=== PATIENT | male | born 1965 | race Caucasian/White ===

== ENCOUNTER 2019-08-01 08:38 | Outpatient (CLI) | payer OTHER, SELFPAY ==
--- NOTE | 2019-08-01 08:51 | ECHO_ITS ---
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 Summary 1. Left ventricular chamber dimension is severely enlarged. 2. Basal inferior/posterior/lateral ribeiro are mildly hypokinetic. Remaining wall segments are severely hypokinetic to akinetic. 3. Left ventricular systolic function is severely reduced, estimated at 25-30%. 4. The left ventricular diastolic function is normal. 5. Tissue doppler is not performed. 6. Left atrial chamber dimension is moderately enlarged. 7. There is mild aortic valve sclerosis. 8. There is mild mitral valve regurgitation. 9. Mild pulmonary hypertension, estimated pulmonary arterial systolic pressure is 44 mmHg. 10. Pleural effusion noted. 11. There is trivial pericardial effusion. Left Ventricle Tissue doppler is not performed. Basal inferior/posterior/lateral ribeiro are mildly hypokinetic. Remaining wall segments are severely hypokinetic to akinetic. Left ventricular chamber dimension is severely enlarged. Left ventricular systolic function is severely reduced, estimated at 25-30%. The left ventricular diastolic function is normal. Right Ventricle Right ventricular chamber dimension is normal. Right ventricular systolic function is normal. Left Atria Left atrial chamber dimension is moderately enlarged. Right Atria Right atrial chamber dimension is normal. Aortic Valve The aortic valve is trileaflet. There is mild aortic valve sclerosis. There is no aortic valve stenosis. There is no aortic valve regurgitation. Pulmonic Valve There is no pulmonic regurgitation. Mitral Valve There is no mitral valve stenosis. There is mild mitral valve regurgitation. Tricuspid Valve There is no tricuspid valve regurgitation. Mild pulmonary hypertension, estimated pulmonary arterial systolic pressure is 44 mmHg. Pericardium/Pleural Pleural effusion noted. There is trivial pericardial effusion. Inferior Vena Cava Normal inferior vena cava with >50% collapse upon inspiration consistent with normal right atrial pressure, 5 mmHg. Aorta The aortic root size at the sinus of Valsalva is normal. Left Ventricular Outflow Tract Name Value Normal LVOT 2D LVOT Diameter 2.1 cm LVOT Doppler LVOT Peak Gradient 2 mmHg LVOT Mean Gradient 1 mmHg LVOT VTI 13 cm LVOT VTI/AV VTI Ratio 0.6 LVOT Stroke Volume 46 ml LVOT CO 4.1 l/min
== END 2019-08-01 08:39 | disposition home or self-care (01) ==
PROVIDERS: PCP Internal Medicine; Visit Provider Physician Assistant
DX: R06.02 Shortness of breath (principal); R60.0 Localized edema; R79.89 Other specified abnormal findings of blood chemistry; J90 Pleural effusion, not elsewhere classified; I08.3 Combined rheumatic disorders of mitral, aortic and tricuspid valves
CPT/HCPCS: 93306

== ENCOUNTER 2019-08-15 05:58 | Day surgery (SDC) | payer OTHER, SELFPAY ==
[2019-08-14 16:46] VITALS: BMI 28.3
[2019-08-15] VITALS (15 sets, daily range): BP systolic 124–152; BP diastolic 83–93; PULSE 82–93; RESP 13–22; TEMP 36.2–36.3; O2SAT 94–100
[2019-08-15 07:35] LABS: Basophils Absolute Auto 0.1 K/mm3 (0.0-0.1); Basophils Percent Auto 0.7 % (0.2-1.2); Eosinophils Absolute Auto 0.1 K/mm3 (0-0.3); Eosinophils Percent Auto 1.4 % (0-4.4); Hematocrit 41.3 % (42.0-52.0); Immature Granulocyte Absolute 0.03 K/mm3 (0.00-0.031); Immature Granulocyte Percent A 0.4 % (0-0.5); Lymphocytes Absolute Auto 1.71 K/mm3 (0.9-3.2); Lymphocytes Percent Auto 23.7 % (18.3-44.2); Mean Corpuscular HGB Conc 31.5 g/dl (32-36); Mean Corpuscular Hemoglobin 27.9 pg (26-34); Mean Corpuscular Volume 88.6 fl (80-100); Mean Platelet Volume 10.6 fl (7.4-10.4); Monocytes Absolute Auto 0.5 K/mm3 (0.1-0.6); Monocytes Percent Auto 7.5 % (2.6-8.5); Neutrophils Absolute Auto 4.8 K/mm3 (1.3-6.7); Neutrophils Percent Auto 66.3 % (45.5-73.1); Platelet Count Result 265 k/mm3 (150-375); Red Blood Count 4.66 M/mm3 (4.6-6.20); Red Cell Distribution Width 12.3 % (11.5-14.5); White Blood Count 7.2 K/mm3 (4.5-10.0)
[2019-08-15 07:44] LABS: Blood Urea Nitrogen 44 mg/dL (9-20); Calcium 9.2 mg/dL (8.4-10.2); Carbon Dioxide 25 mmol/L (22-30); Chloride 107 mmol/L (98-107); Estimated CRCL calculation 65 ml/min; Estimated Glomerular Filt Rate > 60; Glucose 267 mg/dL (75-110); Potassium 5.4 mmol/L (3.4-5.0); Sodium 136 mmol/L (137-145)
--- NOTE | 2019-08-15 08:30 | WPDMODSED ---
Moderate Sedation Note-Pt Data Patient Data Allergies Allergy/AdvReac Type Severity Reaction Status Date / Time Cantaloupe Allergy Unknown ITCHING, Uncoded 07/25/19 09:45 SWOLLEN LIPS Home Medications Medication Instructions Recorded Confirmed Type aspirin 325 mg tablet 325 mg PO DAILY 03/04/19 08/15/19 History dextroamphetamine-amphetamine 20 30 mg PO DAILY tablet 03/04/19 08/15/19 History mg tablet ibuprofen 200 mg capsule 600 mg PO Q6H PRN cap 03/04/19 08/15/19 History insulin lispro 100 unit/mL 1 sliding scale dose SUB-Q 03/04/19 08/15/19 History subcutaneous solution USEASDIRECTD PRN lisinopril 10 mg tablet 10 mg PO DAILY 03/04/19 08/15/19 History mecobalamin (vitamin B12) 5,000 5,000 mcg PO DAILY 03/04/19 08/15/19 History mcg disintegrating tablet tamsulosin 0.4 mg capsule 0.4 mg PO DAILY 03/04/19 08/15/19 History cholecalciferol (vitamin D3) 1,250 50,000 unit PO WEEKLY #13 cap 05/22/19 08/15/19 Rx mcg (50,000 unit) capsule insulin degludec 100 unit/mL (3 30 unit SUB-Q DAILY ml 07/25/19 08/15/19 History mL) subcutaneous pen spironolactone 50 mg tablet 50 mg PO DAILY #30 tablet 07/25/19 08/15/19 Rx albuterol sulfate 90 mcg/actuation 2 puff INHALATION Q4-6H PRN #18 gm 08/04/19 08/15/19 Rx aerosol inhaler acetaminophen 500 mg PO QID PRN 08/15/19 08/15/19 History carvedilol [Coreg] 3.125 mg PO BID 08/15/19 08/15/19 History hydroxyzine pamoate 50 mg PO BID PRN 08/15/19 08/15/19 History ibuprofen 200 mg PO Q6H PRN 08/15/19 08/15/19 History insulin degludec [Tresiba 15 unit SUBCUT DAILY 08/15/19 08/15/19 History FlexTouch U-100] trazodone 50 mg PO .hs 08/15/19 08/15/19 History Current Medications: Active Medications Sodium Chloride (Normal Saline Iv) 500 mls @ 100 mls/hr IV CONT .Q5H [facility] Sedation/Anesthesia: No previous sedation/anesthesia problems (including family history). [facility] Social History Social History Smoking status: Heavy tobacco smoker Second hand tobacco smoke exposure: No Alcohol intake: never Gender identity (if verbalized by the patient): Male Mod Sed Physical Exam Physical Exam Pre Procedural Exam: Normal: Airway Hours since solid foods: 10 Hours since liquid intake: 10 Internal Medicine - PN: Obj Da Vital Signs Vital Signs: Vital Signs - 24 hr 08/15/19 07:22 Temperature 36.3 C L Pulse Rate 89 Respiratory Rate 16 Blood Pressure 143/90 H Pulse Oximetry 94 Meds/Results Medications: Active Medications Generic Name Dose Route Start Last Admin Trade Name Freq PRN Reason Stop Dose Admin Sodium Chloride 500 mls @ 100 mls/hr 08/15/19 06:10 Normal Saline Iv IV CONT .Q5H [facility] Labs CBC & Chem 7: 08/15/19 07:26 08/15/19 07:26 Labs: Laboratory Results - last 24 hr 08/15/19 08/15/19 07:26 07:26 WBC 7.2 RBC 4.66 Hgb 13.0 L Hct 41.3 L MCV 88.6 MCH 27.9 MCHC 31.5 L RDW 12.3 Plt Count 265 MPV 10.6 H Immature Gran % (Auto) 0.4 Neut % (Auto) 66.3 Lymph % (Auto) 23.7 Borden % (Auto) 7.5 Eos % (Auto) 1.4 Baso % (Auto) 0.7 Lymph # (Auto) 1.71 Borden # (Auto) 0.5 Eos # (Auto) 0.1 Baso # (Auto) 0.1 Abs Immat Gran (auto) 0.03 Absolute Neuts (auto) 4.8 Absolute Nucleated RBC 0.0 Nucleated RBC % 0.0 Sodium 136 L Potassium 5.4 H Chloride 107 Carbon Dioxide 25 BUN 44 H Creatinine 1.10 Estim Creat Clear Calc 65 Estimated GFR > 60 Glucose 267 H Calcium 9.2 ASA Classification/Sedation ASA Classification/Sedation Risks: Risks, benefits and alternatives explained and patient/family accepted plan for sedation. Patient re-evaluated immediately prior to sedation.
--- NOTE | 2019-08-15 08:31 | WPDHPUPDATE1 ---
History and Physical Update Update Date/Time: 08/15/19 08:31 History and Physical has been reviewed, including an updated exam of the patient. There are NO changes in the patient's condition. Risks, benefits, and alternatives have been discussed and questions answered. Patient agrees to proceed with procedure.
--- NOTE | 2019-08-15 09:44 | WPDCARDPROC ---
Cardiac Cath Procedure Note Date of procedure:: 08/15/19 Performing physician:: Jony Barrios MD Procedure Procedure note:: LEFT HEART CATHETERIZATION AND CORONARY ANGIOGRAM REPORT DATE OF PROCEDURE: 08/15/2019 INDICATION FOR PROCEDURE: congestive heart failure with reduced ejection fraction BRIEF CLINICAL HISTORY: 53-year-old male with CHF with reduced ejection fraction, hypertension, diabetes mellitus on insulin. Patient was referred by Dr. Zazueta for coronary angiogram in the setting of CHF with reduced ejection fraction. Patient had echocardiogram done on 08/01/2019 which reported severe LV systolic dysfunction, ejection fraction 25-30% with segmental wall motion abnormality. Benefits and risks of the procedure were discussed with the patient informed consent was doing prior to the procedure. PROCEDURES PERFORMED: 1. Left heart catheterization- Selective left and right coronary angiogram; left ventriculogram and hemodynamic assessment 2. Moderate sedation-CPT code 24614 MODERATE SEDATION: Midazolam 1 mg; fentanyl 25 mcg; Start time 0913 , Stop time 0930 ; Total [id number]-[id number] time 17 minutes; Archana Kennedy RN was trained observer for moderate sedation. ACCESS SITE: Right common femoral artery PROCEDURE NOTE: After obtaining informed consent, patient was brought to catheterization lab and prepped and draped in a usual sterile manner. After local anesthesia with lidocaine, right common femoral artery access was taken with micropuncture needle followed by insertion of a 6 Cuban sheath. Selective left and right coronary angiogram was performed using 5 Cuban JL4 and JR4 catheters respectively. Orthogonal views were taken. Next, a 5 Cuban pigtail catheter was advanced in the LV cavity and was flushed with normal saline. LV pressure measurement was performed. After this, left ventriculogram was performed. The catheter was flushed again, and gradient across the aortic valve was measured on the pullback of the catheter. . The 5 Cuban sheath was secured in place which we taken out in the micro lab analyst holding area. Manual pressure will be used for local hemostasis. Patient tolerated procedure well without any immediate procedure related complications. FINDINGS: LEFT MAIN CORONARY: The left main coronary artery is a medium caliber vessel with minimal narrowing in the distal most segment before vessel trifurcates into LAD, ramus intermedius and left circumflex branches. LEFT ANTERIOR DESCENDING ARTERY: The LAD is a medium caliber vessel, tapers distally and reaches the LV apex. There is about 70% stenosis at the ostium of the LAD. Minor irregularities are seen in the mid segment with some tortuosity. B major diagonal branch is a medium-sized vessel without significant focal stenosis. RAMUS INTERMEDIUS: The ramus intermedius is a medium to large size vessel, minor irregularities, no significant focal stenosis. LEFT CIRCUMFLEX ARTERY: The left circumflex artery is a small to medium-sized vessel, continues in the AV groove with Minor irregularities. RIGHT CORONARY ARTERY: The RCA is a medium-sized vessel with diffuse narrowing in the mid segment; up to 70% in the mid segment. The vessel gives rise to medium-sized PDA branch and small size PLV branch. There is slightly sluggish blood flow in the RCA. LEFT VENTRICULOGRAM: severe LV systolic dysfunction with LVEF about 25-30%; segmental wall motion abnormality with severe hypokinesis of anterior wall, apex and apical inferior segments. Basal segments are relatively preserved. LVEDP is elevated at 23 mmHg. HEMODYNAMIC ASSESSMENT: Opening pressure 115/72 mmHg , closing pressure 100/60 mmHg , LVEDP 23 mmHg , no significant gradient across aortic valve on the pullback of pigtail catheter. CONCLUSIONS: 1. Multivessel CAD- About 70% stenosis at the ostium of LAD; about 70% stenosis in the mid RCA. 2. severe LV systolic dysfunction with segmental wall motion abnormality -sever
--- NOTE | 2019-08-15 16:14 | SUR.PHASEII ---
Patient ambulated to bathroom and then chair with no signs of bleeding or hematoma, will continue to monitor.
[2019-08-15] MEDS: ACETAMINOPHEN 500 MG TABLET 1000 MG PO (16:52)
== END 2019-08-15 17:02 | disposition home or self-care (01) ==
PROVIDERS: PCP Internal Medicine; Visit Provider Internal Medicine Cardiovascular Disease
PROC: 4A023N7 Measurement of Cardiac Sampling and Pressure, Left Heart, Percutaneous Approach (ICD-10-PCS; CPT 93452; principal; 2019-08-15 08:30)
DX: I25.10 Atherosclerotic heart disease of native coronary artery without angina pectoris (principal); I11.0 Hypertensive heart disease with heart failure; I50.22 Chronic systolic (congestive) heart failure; I42.9 Cardiomyopathy, unspecified; E11.9 Type 2 diabetes mellitus without complications; E78.5 Hyperlipidemia, unspecified; Z86.73 Personal history of transient ischemic attack (TIA), and cerebral infarction without residual deficits; F17.210 Nicotine dependence, cigarettes, uncomplicated; Z79.4 Long term (current) use of insulin; Z79.82 Long term (current) use of aspirin
CPT/HCPCS: 36415; 80048; 85025; 93458; A9270; C1887; C1894; J1644; J2250; J3010; J7040

== ENCOUNTER 2020-06-17 14:18 | Outpatient (CLI) | payer MEDICARE, SELFPAY ==
--- NOTE | ~2020-06-17 | US_ITS ---
EXAMINATION: US art doppler w press LE BI DATE: 06/17/2020 15:03 INDICATION: Peripheral arterial occlusive disease with claudication and prior right great toe amputat ion TECHNIQUE: Segmental pressures and plethysmographic and Doppler waveforms of the brachial and lower e xtremity arteries were obtained. COMPARISON: 12/11/2016 FINDINGS: Right and left brachial artery pressures of 107 mm Hg and 102 mm Hg, respectively, are concordant (no rmal difference <= 30 mmHg). The right ankle-brachial index (JELLY) is 1.22 (normal >= 0.9-1). The right great toe-brachial index (T BI) is 0.26 (normal >= 0.6-0.8). Arterial waveforms are biphasic with brisk systolic upstrokes at bot h the right posterior tibial and dorsalis pedis arteries. The left JELLY is 1.18. The left TBI is 1.21. Arterial waveforms are biphasic with brisk systolic upstr okes at both the left posterior tibial and dorsalis pedis arteries. IMPRESSION: 1. Persistent findings of arterial occlusive disease below the right ankle with normal right JELLY and moderate to severely decreased right TBI. 2. No significant arterial occlusive disease to the left lower limb with normal left JELLY and TBI. Reviewed, dictated and finalized at location B. 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
== END 2020-06-17 14:19 | disposition home or self-care (01) ==
LOC: ANHIMG 14:26
PROVIDERS: PCP Internal Medicine; Visit Provider Internal Medicine Cardiovascular Disease
DX: I25.10 Atherosclerotic heart disease of native coronary artery without angina pectoris (principal); I73.9 Peripheral vascular disease, unspecified
CPT/HCPCS: 93923

== ENCOUNTER 2020-06-20 10:13 | Outpatient (CLI) | payer MEDICARE, SELFPAY | END 2020-06-20 10:14 | disposition home or self-care (01) | LOC: ANHCOVIDVC 10:13 | PROVIDERS: PCP Internal Medicine | DX: Z23 Encounter for immunization (principal) | CPT/HCPCS: 0001A; 91300 ==

== ENCOUNTER 2020-07-11 09:43 | Outpatient (CLI) | payer MEDICARE, SELFPAY | END 2020-07-11 09:44 | disposition home or self-care (01) | LOC: ANHCOVIDVC 09:44 | PROVIDERS: PCP Internal Medicine | DX: Z23 Encounter for immunization (principal) | CPT/HCPCS: 0002A; 91300 ==

== ENCOUNTER 2020-09-06 09:04 | Outpatient (CLI) | payer MEDICARE, SELFPAY ==
--- NOTE | ~2020-09-06 | US_ITS ---
EXAMINATION: US renal BI EXAM DATE: 09/06/2020 10:16 INDICATION: CKD, HTN hypertension . TECHNIQUE: Multiple grayscale and Doppler images of the kidneys were obtained (by a technologist who performed the scan) and subsequently reviewed. Comparison is made to prior examination from 11/30/2017 . FINDINGS: Right kidney: There is normal contour and mildly hyperechoic echogenicity. It measures 10.7 x 5.6 x 5.0 centimeters. There are no focal renal lesions identified. There is no hydronephrosis. Left kidney: There is normal contour and mildly hyperechoic echogenicity. It measures 12.5 x 5.2 x 4 .7 centimeters. There are no focal renal lesions identified. There is no hydronephrosis. Mild diffuse bladder wall thickening and trabecular wall, could indicate chronic cystitis. IMPRESSION: 1. Mildly hyperechoic renal parenchyma, medical renal disease. 2. Bladder wall thickening and trabeculation, probably chronic cystitis. Reviewed, dictated and finalized at location A.
--- NOTE | ~2020-09-06 | US_ITS ---
EXAMINATION: US retroperitoneal duplex ltd EXAM DATE: 09/06/2020 10:16 INDICATION: Hypertension. TECHNIQUE: Multiple grayscale and Doppler images of the kidneys and renal arteries were obtained. T here is no prior study for comparison. FINDINGS: The aorta peak systolic velocity is 105 cm/s. Renal arteries interrogated in several segments from origin to hilum. RIGHT RENAL ARTERY Proximal segment: 91 cm/s. Mid segment: 94 cm/s. Distal segment: 103 cm/s. LEFT RENAL ARTERY Proximal segment: 50 cm/s. Mid segment: 88 cm/s. Distal segment: 56 cm/s. IMPRESSION: 1. Renal artery Doppler velocities within normal limits. Reviewed, dictated and finalized at location A.
== END 2020-09-06 09:05 | disposition home or self-care (01) ==
PROVIDERS: PCP Internal Medicine; Visit Provider Internal Medicine Nephrology
DX: N18.31 Chronic kidney disease, stage 3a (principal); I10 Essential (primary) hypertension; R93.41 Abnormal radiologic findings on diagnostic imaging of renal pelvis, ureter, or bladder
CPT/HCPCS: 76775; 93976

== ENCOUNTER 2021-08-19 09:31 | Observation (INO) | payer MEDICARE, SELFPAY ==
[2021-08-19] VITALS (14 sets, daily range): BP systolic 114–174; BP diastolic 70–95; PULSE 77–98; RESP 16–20; TEMP 35.8–38.5; O2SAT 88–100; BMI 29.2
--- NOTE | ~2021-08-19 | CT_ITS ---
EXAMINATION: CT pelvis wo con DATE: 08/20/2021 15:13 INDICATION: Sacral fracture TECHNIQUE: High resolution computed tomography (CT) of the pelvis was performed without intravenous c ontrast. Additional sagittal and coronal reconstructions were performed. Automated exposure control a nd iterative reconstruction technique were employed. The dose-length product was 457.09 mGy-cm. COMPARISON: None FINDINGS: Bone alignment is normal. Old healed fracture at the right inferior pubic ramus. No acute fracture. S mall amount of ascites in the pelvis. Bladder is normal. There is mild colonic diverticulosis with a sigmoid predominance. There is no adjacent inflammatory change to suggest diverticulitis. The append ix and visualized portions of the small bowels are unremarkable. Extensive scattered peripheral vascu lar calcifications suggesting diabetes. No pathologically enlarged bilateral pelvic or inguinal lymph adenopathy. IMPRESSION: 1. No acute osseous abnormality. 2. Small amount of nonspecific ascites in the pelvis. Reviewed, dictated and finalized at location A.
--- NOTE | ~2021-08-19 | CT_ITS ---
EXAMINATION: CT brain wo con DATE: 08/19/2021 19:15 INDICATION: weakness TECHNIQUE: Computed tomography (CT) of the head was performed without intravenous contrast. The mA wa s adjusted according to patient size. Iterative reconstruction technique was employed. The dose-lengt h product was 605.33 mGy-cm. COMPARISON: 03/19/12 FINDINGS: No acute intracranial hemorrhage or extra-axial fluid collection. No hydrocephalus, mass, or herniation. No acute ischemic infarct. Unremarkable dural venous sinus attenuation. No acute osseous abnormality. The aerated spaces are clear. Mild atrophy and chronic white matter change. Atherosclerotic intracranial vascular calcifications. B ilateral lens replacements. IMPRESSION: No acute intracranial process. Reviewed, dictated and finalized at location K.
--- NOTE | ~2021-08-19 | XR_ITS ---
EXAMINATION: XR chest 2V DATE: 08/19/2021 10:24 INDICATION: Weakness post recent fall TECHNIQUE: frontal and lateral views of the chest were obtained. COMPARISON: Chest radiograph dated 07/16/2015 FINDINGS: Large-bore dual-lumen right internal jugular central venous catheter with distal tip at the high righ t atrium. Blunting at the bilateral posterior sulci and costophrenic angles consistent with small heath ateral pleural effusions with associated compressive atelectasis. No other airspace opacities, pulmon nasim edema or pneumothorax. Mild cardiomegaly. Mild thoracic spondylosis. Chronic Schmorl's node along the superior endplate of L1. IMPRESSION: 1. Small bilateral pleural effusions. 2. Mild cardiomegaly. Reviewed, dictated and finalized at location A.
--- NOTE | ~2021-08-19 | XR_ITS ---
EXAMINATION: XR lumbar spine 2-3V DATE: 08/19/2021 10:24 INDICATION: Weakness, recent fall, back pain TECHNIQUE: Anteroposterior and lateral views of the lumbar spine, and cone-down lateral view of the l umbosacral junction were obtained. COMPARISON: 06/30/2014 FINDINGS: There is and age-indeterminate displaced and slightly overriding transverse fracture of the sacrum and approximately S3-4. Bone alignment is normal in the lumbar spine. There is no fracture th e lumbar spine. The vertebral body heights are maintained. There is mild loss of intervertebral disc space height at L5-S1. Small degenerative osteophytes project from the anterior endplates of multiple vertebral bodies. Calcified atherosclerosis is noted. IMPRESSION: 1. Age-indeterminate displaced and slightly overriding transverse fracture of the sacrum. 2. Mild lumbar spondylosis. Reviewed, dictated and finalized at location A. IMPRESSION: 1. Age-indeterminate displaced and slightly overriding transverse fracture of t he sacrum. 2. Mild lumbar spondylosis.
--- NOTE | 2021-08-19 09:58 | ECG_ITS ---
Measurements Intervals Carney Rate: 79 P: 88 [place]: 188 QRS: -53 QRSD: 119 T: 85 QT: 412 QTc: 473 Interpretive Statements SINUS RHYTHM LEFT AXIS DEVIATION POSSIBLE LEFT ATRIAL ENLARGEMENT INFERIOR INFARCT, AGE INDETERMINATE BORDERLINE ST-T WAVE ABNORMALITY- HIGH LATERAL LEADS ABNORMAL ECG Electronically Signed On 08-19-2021 10:20:16 CDT by Reji Poon D.O.
--- NOTE | 2021-08-19 10:01 | ED.BACK ---
HPI - Back Pain/Injury General Chief Complaint: Weakness Stated Complaint: back problems Time Seen by Provider: 08/19/21 09:45 History of Present Illness HPI Narrative: 55-year-old male with end-stage renal disease presents the emergency room complaining of lower back pain x1 week. Patient states that he slipped and fell landing on his tailbone. Patient also complains of increased generalized weakness over the past week, causing him to fall multiple times. Patient is a Wednesday dialysis, and has not dialyzed since Wednesday. Patient denies chest pain, shortness of breath, Related Data Home Medications Medication Instructions Recorded Confirmed insulin lispro 100 unit/mL 1 sliding scale dose SUB-Q 03/04/19 10/16/20 subcutaneous solution USEASDIRECTD PRN insulin degludec 100 unit/mL (3 38 unit SUB-Q DAILY ml 09/13/20 10/16/20 mL) subcutaneous pen cholecalciferol (vitamin D3) 125 mcg PO DAILY 08/19/21 [Vitamin D3] dextroamphetamine-amphetamine 20 mg PO BID 08/19/21 furosemide [Lasix] 80 mg PO TID 08/19/21 levothyroxine 50 mcg PO DAILY 08/19/21 metoprolol succinate 25 mg PO DAILY 08/19/21 Allergies Allergy/AdvReac Type Severity Reaction Status Date / Time Cantaloupe Allergy Unknown ITCHING, Uncoded 08/19/21 10:09 SWOLLEN LIPS Review of Systems Review of Systems: CONSTITUTIONAL: Denies fever, chills, or sweats. EYES: Denies visual changes, redness, or discharge. ENT: Denies rhinorrhea, congestion, sore throat, or otalgia. CARDIOVASCULAR: Denies chest pain, palpitations, or edema. RESPIRATORY: Denies cough or dyspnea. GASTROINTESTINAL: Denies abdominal pain, nausea, vomiting, or diarrhea. GENITOURINARY: Denies dysuria or hematuria. SKIN: Denies rash or itching. MUSCULOSKELETAL: Reports lower back pain NEUROLOGIC: Reports generalized weakness PSYCHIATRIC: Denies anxiety or depression. [facility] Social History Social History Smoking packs per day: 1 Smoking cigarettes per day: 20.0 Years smoked: 40 Smoking pack-years: 40.00 Smoking status: Current every day smoker Tobacco type: cigarettes Second hand tobacco smoke exposure: No Alcohol intake: never Gender identity (if verbalized by the patient): Male Exam Narrative: GENERAL: Ill-appearing. HEAD: Normocephalic, atraumatic. EYES: PERRLA and EOMI. NECK: Supple. No adenopathy or masses. No carotid bruits or JVD CHEST: Clear to auscultation. No respiratory distress. No wheezes rales or rhonchi HEART: Regular rate and rhythm. No murmur heard. Normal peripheral pulses. ABDOMEN: Soft, nontender, nondistended, normal active bowel sounds. EXTREMITIES: Normal range of motion. Lower extremity edema BACK: Tenderness midline to sacrum, no step-offs SKIN: Warm, dry, no rash. Indurated, erythematous mass to right gluteal area NEURO: No focal deficits. Alert and oriented x3. PSYCH: Normal mood and affect. Course Vital Signs Vital signs: Vital Signs Temperature 35.8 C L 08/19/21 09:34 Pulse Rate 82 08/19/21 09:34 Respiratory Rate 18 08/19/21 09:34 Blood Pressure 174/95 H 08/19/21 09:34 Pulse Oximetry 100 08/19/21 09:34 Temperature 35.8 C L 08/19/21 09:34 Pulse Rate 78 08/19/21 12:16 Respiratory Rate 18 08/19/21 12:16 Blood Pressure 138/78 08/19/21 12:16 Pulse Oximetry 98 08/19/21 12:16 MDM - Back Pain/Injury MDM Narrative Medical decision making narrative: 55-year-old male presents to the emergency room complaints of right lower back pain following a fall couple of days ago. Patient states that he has had increased weakness over the past 7 to 10 days, which is resulted in multiple falls. Patient states he is normally ambulatory, but since his last fall he is unable to walk. Patient has end-stage renal disease, which she dialyzes on Tuesdays and Saturdays. Patient did not dialyze today. Patient also admits that he i
[2021-08-19] MEDS: MORPHINE SULFATE (*CRX) 4 MG/ML INJ IV PUSH (10:12)
[2021-08-19 10:15] LABS: Basophils Percent Auto 0.3 % (0.2-1.2); Eosinophils Absolute Auto 0.1 K/mm3 (0-0.3); Eosinophils Percent Auto 0.7 % (0-4.4); Hematocrit 31.4 % (42.0-52.0); Hemoglobin 10.2 g/dL (14.0-18.0); Immature Granulocyte Absolute 0.06 K/mm3 (0.00-0.031); Immature Granulocyte Percent A 0.5 % (0-0.5); Lymphocytes Absolute Auto 0.63 K/mm3 (0.9-3.2); Lymphocytes Percent Auto 5.5 % (18.3-44.2); Mean Corpuscular HGB Conc 32.5 g/dl (32-36); Mean Corpuscular Hemoglobin 29.5 pg (26-34); Mean Corpuscular Volume 90.8 fl (80-100); Mean Platelet Volume 11.2 fl (7.4-10.4); Monocytes Absolute Auto 0.7 K/mm3 (0.1-0.6); Monocytes Percent Auto 5.9 % (2.6-8.5); Neutrophils Percent Auto 87.1 % (45.5-73.1); Platelet Count Result 160 k/mm3 (150-375); Red Blood Count 3.46 M/mm3 (4.6-6.20); White Blood Count 11.4 K/mm3 (4.5-10.0)
[2021-08-19 10:25] LABS: Alanine Aminotransferase 25 U/L (4-50); Albumin Level 3.5 g/dL (3.5-5.1); Alkaline Phosphatase 290 U/L (38-126); Anion Gap 8 mmol/L (8-16); Aspartate Amino Transferase 26 U/L (17-59); Bilirubin,Total 0.7 mg/dL (0.2-1.3); Blood Urea Nitrogen 64 mg/dL (9-20); Calcium 7.9 mg/dL (8.4-10.2); Carbon Dioxide 29 mmol/L (22-30); Chloride 87 mmol/L (98-107); Estimated CRCL calculation 18 ml/min; Estimated Glomerular Filt Rate 13; Glucose 432 mg/dL (65-110); Potassium 5.7 mmol/L (3.4-5.0); Sodium 124 mmol/L (137-145)
[2021-08-19 10:37] LABS: Troponin I 0.016 ng/mL (0.000-0.034)
--- NOTE | 2021-08-19 11:07 | PC.NURSE ---
Care assumed of pt at this time. pt is laying in bed in no acute distress. Awaiting re-evaluation by ERP
--- NOTE | 2021-08-19 12:25 | PC.NURSE ---
This patient, Jesus Ceja, was admitted to [facility] Room 302-01. Patient/family oriented to hospital policies and general routines including ID bracelet, bed and alarms, visiting hours, pain management, procedures, bathroom and other care routines, personal items, smoking policy, room service/diet, and visiting hours. Report received from Leisa FRAGOSO Information on how to activate the Rapid Response Team has been discussed. Patient/Family are encouraged to report perceived risks to care and to ask questions if they do not understand what they are told or what they should do.
--- NOTE | 2021-08-19 15:47 | PM.IMHP ---
H&P: HPI History of Present Illness Date/Time: 08/19/21 15:47 Chief Complaint: Weakness Narrative: 55yo male with ESRD, CAD and DM here for weakness. About 1 week ago, patient fell landing on his tailbone while going into dialysis. He had trouble getting up and they had come out and help him to a wheelchair. He finished dialysis that day and was able to walk out of the clinic. He denies any lightheadedness, chest pain, presyncope, syncope or loss of consciousness. He did hit the back of his head at that time. Patient states he has frequent falls because of leg weakness. He states his legs give out on him frequently. He is followed by Dr. Ernandez recently for a pelvic fracture.. Patient states these has frequent falls usually landing on his tailbone with 6 occurring this year alone. Patient was able to tolerate dialysis on and Wednesday. Was able to walk into the unit without difficulty. His last dialysis was Wednesday08/16/2021. Since that time he has had difficulty walking. He has had more pain in the sacral area. He has a pilonidal cyst that he feels is the culprit of his pain. He denies any fever or chills. No diaphoresis. There is no drainage from the cyst. He has chronic numbness and tingling in his hands and feet without change. He also noted that he has had decreased urine output for the past 2 days. He has been having trouble urinating but denies any dysuria or hematuria. He denies any saddle anesthesia. He had constipation but better with laxatives. He has end-stage renal disease has been on dialysis since September 2020. He follows with Dr. Han and has dialysis [id number] in [place]. He did have an endovascular AV fistula placed in March 2021 and they are currently using this. He still has a right upper chest hemodialysis catheter in place. Complete review of systems was done. He denies any diet facial come dysphagia, vision change, chest pain, palpitation, shortness of breath, cough, abdominal pain, nausea, vomiting. Because of his weakness., patient presented to the emergency room for evaluation. In the ED, patient was hemodynamically stable. Blood pressure was elevated. No fevers. White count slightly elevated 11 K. sodium 124 and potassium 5.7. BUN was 64 and creatinine 4.6. Glucose was 432. Alk-phos is 290. Troponin was negative x1. EKG showed normal sinus rhythm left axis deviation and age-indeterminate inferior infarct with borderline ST T wave changes in the high lateral leads. Chest x-ray showed small bilateral pleural effusions and mild cardiomegaly. Lumbar spine x-ray showed age-indeterminate displaced and slightly overriding transverse fracture of the sacrum. Patient states he has had this before with this chronic sacral pain but no previous imaging here to verify that. For his diabetes he is vague on how well controlled he is. He states his glucose was 100 yesterday but cannot provide any further details. He says he checks his sugar 4 to 5 times a day. He has had a hx of CVA with right sided weakness. Patient was admitted for further care. Review of Systems Review of Systems: All systems reviewed & are unremarkable except as noted in HPI and below PMFSH Past Medical History Medical History (Updated 08/19/21 @ 17:16 by Adam Granger MD) Anxiety and depression Asthma CAD (coronary artery disease) s/p stent placement to ostial LAD and to mid RCA with Impella support Cardiomyopathy Ischemic CHF (congestive heart failure) Diabetes mellitus Dyslipidemia End stage chronic kidney disease Essential (primary) hypertension History of alcoholism History of CVA (cerebrovascular accident) Hx of fracture of pelvis PAD (peripheral artery disease) Moderate to severe on the right lower extremity Surgical History Surgical History (Updated 08/19/21 @ 16:04 by Adam Granger MD) H/O nasal septoplasty History of carpal tunnel release Radial fracture Right great
[2021-08-19] MEDS: NICOTINE (*PBKC) 21 MG PATCH 1 PATCH TRANSDERM (18:21)
[2021-08-19] MEDS: FUROSEMIDE 80 MG TABLET PO (18:22)
[2021-08-19] MEDS: INSULIN ASPART (*BKC) 100 UNITS/ML SUB-Q (18:25)
[2021-08-19 18:27] LABS: Glucose Point of Care 355 mg/dl (65-105)
--- NOTE | 2021-08-19 18:30 | PC.NURSE ---
Patient given mediation sheet [facility] and offered multiple times during the day and evening to take. . Patient refused to take medication. Dr Elkin harrison.
[2021-08-19 18:31] LABS: Appearance Urine Clear (Clear); Bilirubin Urine Negative (Negative); Color Urine Yellow (Yellow); Glucose Urine UA 3+ mg/dL (Negative); Ketones Urine Negative (Negative); Leukocyte Esterase Ur Negative LEU/UL (Negative); Nitrate Urine Negative (Negative); Protein Urine 3+ mg/dL (Negative); Urobilinogen Urine 0.2 mg/dL (<2.0); pH Urine 6.5 (5.0-9.0)
[2021-08-19 18:56] LABS: Add Urine Microscopic? YES; Blood Urine Trace-Intact (Negative)
[2021-08-19 19:02] LABS: Bacteria Urine Trace /hpf; WBC Urine 0-3 /hpf
[2021-08-19] MEDS: HYDROcodone/acetaminophen (*CRX) 5-325 MG TABLET 1 TAB PO (20:11)
[2021-08-19 20:17] LABS: Glucose Point of Care 325 mg/dl (65-105)
[2021-08-19] MEDS: ALBUTEROL SULFATE (*SP) AEROSOL 1 PUFF 2 PUFF INHALATION (20:29)
[2021-08-19] MEDS: HEPARIN SODIUM 5,000 UNITS/ML VIAL 5000 UNITS SUB-Q (20:52)
[2021-08-19] MEDS: INSULIN GLARGINE (*BKC) 100 UNITS/ML 20 UNITS SUB-Q (20:52)
[2021-08-19] MEDS: METOPROLOL SUCCINATE EXT REL 25 MG TABCR PO (20:52)
[2021-08-19] MEDS: ACETAMINOPHEN 325 MG TABLET 650 MG PO (23:09)
[2021-08-20] VITALS (29 sets, daily range): BP systolic 109–155; BP diastolic 59–76; PULSE 70–98; RESP 16–18; TEMP 36–38.8; O2SAT 92–100
[2021-08-20] MEDS: ACETAMINOPHEN 325 MG TABLET 650 MG PO (00:29)
[2021-08-20] MEDS: LEVOTHYROXINE SODIUM 50 MCG TABLET PO (05:49)
[2021-08-20 05:59] LABS: Basophils Percent Auto 0.3 % (0.2-1.2); Eosinophils Percent Auto 0.3 % (0-4.4); Hematocrit 28.9 % (42.0-52.0); Hemoglobin 9.1 g/dL (14.0-18.0); Immature Granulocyte Absolute 0.03 K/mm3 (0.00-0.031); Immature Granulocyte Percent A 0.4 % (0-0.5); Lymphocytes Absolute Auto 0.45 K/mm3 (0.9-3.2); Lymphocytes Percent Auto 5.8 % (18.3-44.2); Mean Corpuscular HGB Conc 31.5 g/dl (32-36); Mean Corpuscular Hemoglobin 29.4 pg (26-34); Mean Corpuscular Volume 93.2 fl (80-100); Mean Platelet Volume 10.7 fl (7.4-10.4); Monocytes Absolute Auto 0.3 K/mm3 (0.1-0.6); Monocytes Percent Auto 4.4 % (2.6-8.5); Neutrophils Absolute Auto 6.9 K/mm3 (1.3-6.7); Neutrophils Percent Auto 88.8 % (45.5-73.1); Platelet Count Result 129 k/mm3 (150-375); Red Cell Distribution Width 15.3 % (11.5-14.5); White Blood Count 7.8 K/mm3 (4.5-10.0)
[2021-08-20 06:07] LABS: Hemoglobin A1C 13.2 % (<5.7)
[2021-08-20 06:14] LABS: Albumin Level 3.1 g/dL (3.5-5.1); Anion Gap 7 mmol/L (8-16); Blood Urea Nitrogen 76 mg/dL (9-20); Calcium 7.3 mg/dL (8.4-10.2); Carbon Dioxide 29 mmol/L (22-30); Chloride 88 mmol/L (98-107); Estimated CRCL calculation 13 ml/min; Estimated Glomerular Filt Rate 10; Glucose 182 mg/dL (65-110); Magnesium 3.6 mg/dL (1.6-2.3); Phosphorus 3.9 mg/dL (2.5-4.5); Potassium 5.6 mmol/L (3.4-5.0); Sodium 124 mmol/L (137-145)
--- NOTE | 2021-08-20 06:52 | PM.CNNEP ---
Assessment and Plan Additional Plan 1. Zaynab has end-stage renal disease. He was due for dialysis yesterday but missed it. He is going to get dialysis today. His chest x-ray shows small pleural effusions and some cardiomegaly. Will remove fluid on dialysis today. His potassium is 5.6 this morning. We will do him on a 2 K bath. 2. The patient is falling frequently. Consider neuropathy versus some sort of nerve compression issue verses [employer] problems? He is being evaluated by Dr. Granger. He is going to get physical therapy and occupational therapy. 3. Patient has diabetes. A1c was 13.2. On Accu-Cheks and sliding-scale insulin per hospitalist 4. Hypertension blood pressure is under good control 5. Renal osteodystrophy calcium was a little low but so is albumin. Phosphorus level is good. 6. Hyponatremia. This is from fluid intake. Dialysis should help this. 7. The patient continues to smoke. He smokes about a pack a day. He has tried to quit in the past but has given up. Encouraged to stop smoking. History of Present Illness Reason for Consult Consult date: 08/20/21 Chief Complaint Chief complaint: Weakness History of Present Illness Narrative: Jesus is a very pleasant 55-year-old gentleman who has multiple medical problems including end-stage renal disease on dialysis Tuesdays and Saturdays at under Dr. Han, diabetes, peripheral vascular disease, stroke, coronary disease, ischemic cardiomyopathy with congestive heart failure, asthma, anxiety, hyperlipidemia, hypertension, prior history of alcohol abuse, fracture of the pelvis in the past. The patient has been falling frequently. He fell a few months ago and broke his pelvis. He was seeing Dr. Gaspar and has healed up however he continues to fall. He fell a week ago in the parking lot on his way into dialysis. They helped him up and he was placed into a wheelchair and he was able to do his dialysis. He has been gradually weaker and he was especially weak yesterday so went to the emergency room. In the ER he was evaluated. His potassium was 5.7. Kayexalate and Lokelma were ordered but he refused all of it. The patient has a sore on his right 2nd toe. It was draining pus about a week ago has not been draining since then. Review of Systems Constitutional: Constitutional: Reports no additional constitutional complaints Eyes: Eyes: Reports no additional eye complaints ENT: Reports system reviewed and no additional complaints, except as documented Cardiovascular: Cardiovascular: Reports no additional cardiovascular complaints Respiratory: Respiratory: Reports no additional respiratory complaints Gastrointestinal: Gastrointestinal: Reports no additional gastrointestinal complaints Genitourinary: Genitourinary: Reports no additional male genitourinary complaints Musculoskeletal: Musculoskeletal: Reports no additional musculoskeletal complaints Integumentary/Breasts: Skin/Breast: Reports system reviewed and no additional complaints, except as docu Neurologic: Reports system reviewed and no additional complaints, except as documented Psychiatric: Psychiatric: Reports no additional psychiatric complaints Endocrine: Endocrine: Reports no additional endocrine complaints PMFSH Past Medical History Medical History Anxiety and depression Asthma CAD (coronary artery disease) s/p stent placement to ostial LAD and to mid RCA with Impella support Cardiomyopathy Ischemic CHF (congestive heart failure) Diabetes mellitus Dyslipidemia End stage chronic kidney disease Essential (primary) hypertension History of alcoholism History of CVA (cerebrovascular accident) Hx of fracture of pelvis PAD (peripheral artery disease) Moderate to severe on the right lower extremity Surgical History Surgical History H/O nasal septoplasty History of carpa
--- NOTE | 2021-08-20 07:14 | PCOTNOTE ---
Will complete OT evaluation after ortho consult is completed. Will follow.
[2021-08-20 07:30] LABS: Glucose Point of Care 165 mg/dl (65-105)
--- NOTE | 2021-08-20 08:16 | PCPTNOTE ---
Will complete PT evaluation after ortho consult is completed. Will follow.
[2021-08-20] MEDS: HEPARIN SODIUM 5,000 UNITS/ML VIAL 5000 UNITS SUB-Q ×2 (08:44→20:12)
[2021-08-20] MEDS: ROSUVASTATIN 10 MG TABLET 40 MG PO (08:45)
[2021-08-20] MEDS: NICOTINE (*PBKC) 21 MG PATCH 1 PATCH TRANSDERM (08:45)
[2021-08-20] MEDS: HYDROcodone/acetaminophen (*CRX) 5-325 MG TABLET 1 TAB PO ×2 (09:02→18:57)
[2021-08-20 09:10] LABS: Hepatitis B Surface Antigen Negative (Negative)
[2021-08-20 09:28] LABS: Hepatitis B Surface Anti Res Negative
[2021-08-20 11:06] LABS: Glucose Point of Care 215 mg/dl (65-105)
--- NOTE | 2021-08-20 11:15 | PM.IMPN ---
Progress Note: A&P Assessment and Plan (1) Electrolyte abnormality: Code(s): E87.8 - Other disorders of electrolyte and fluid balance, not elsewhere classified Status: Acute Assessment and Plan: Sodium 124 and potassium 5.7 on admission. Lokelma offered but patient refused. The hyponatremia could be contributing to his weakness. Nephrology consulted for dialysis. EKG did not show any significant EKG changes to prompt acute dialysis so he was monitored overnight. Potassium today 5.6 and Na 124. Currently undergoing HD this morning. (2) Weakness: Code(s): R53.1 - Weakness Status: Acute Assessment and Plan: Patient with what sounds like chronic weakness most likely related to his chronic medical problems. Symptoms appear to have worsened after his fall probably related to pain. He does have severe diabetic neuropathy. CT brain showing no acute findings. Fever ow but UA negative and CXR showing no acute concerns. Follow. Correct electrolytes. Start PT/OT if okay with ortho. (3) Sacral fracture: Code(s): S32.10XA - Unspecified fracture of sacrum, initial encounter for closed fracture Status: Acute Assessment and Plan: X-ray shows age-indeterminate displaced and slightly overriding transverse fracture of the sacrum at approximately S3-S4. He also has a history of pelvic fracture last year. He had mild urine retention but could be stasis from his inactivity and/or BPH. Resume Flomax. Continue current pain control. Increase activity at least up to the chair. Start therapy if okay with ortho. Monitor UOP. (4) Diabetes mellitus: Code(s): E11.9 - Type 2 diabetes mellitus without complications Status: Acute Assessment and Plan: A1c 13.2. His glucose on admission was 432. Glucose better this morning at 165. TSH normal. Continue AccuCheks covering with sliding scale. Hypoglycemia protocol available as needed. Continue current medications with Lantus at night. May need mealtime insulin. (5) End stage chronic kidney disease: Code(s): N18.6 - End stage renal disease Status: Acute Assessment and Plan: Patient with end-stage renal disease with a fistula in the left upper arm as well as a tunneled catheter in his right upper chest. He follows with Dr. Han and receives dialysis [facility] at [facility]. Appreciate Nephrology input. HD today. Further dialysis management per nephrology. (6) Essential (primary) hypertension: Code(s): I10 - Essential (primary) hypertension Status: Acute Assessment and Plan: Blood pressure was elevated on admission but has improved. Continue current medications. Titrate medications accordingly. (7) CAD (coronary artery disease): Code(s): I25.10 - Atherosclerotic heart disease of [place] coronary artery without angina pectoris Status: Acute Assessment and Plan: Patient with known coronary disease. No complaints of chest pain, palpitations or shortness of breath. Will continue his current medical management with Toprol and Crestor. Add aspirin. (8) CHF (congestive heart failure): Code(s): I50.9 - Heart failure, unspecified Status: Acute Assessment and Plan: Echo in January 2020 showed EF of 40% with normal diastolic function and hypokinetic inferior and posterior segments. Did not appear to be overtly fluid overloaded on admission. Use dialysis to control fluid status. (9) Cigarette smoker: Code(s): F17.210 - Nicotine dependence, cigarettes, uncomplicated Status: Acute Assessment and Plan: Patient was educated about the benefits of smoking cessation. (10) DVT prophylaxis: Code(s): Z29.9 - Encounter for prophylactic measures, unspecified Status: Acute Assessment and Plan: Heparin Subjective Date/time seen: 08/20/21 11:15 Interval history: 55yo male with ESRD, CAD and DM here
[2021-08-20] MEDS: EPOETIN ALFA-EPBX 10,000 UNITS/ML VIAL 10000 UNITS IV PUSH (11:21)
[2021-08-20] MEDS: HEPARIN SODIUM 1,000 UNITS/ML VIAL 4000 UNITS (11:22)
[2021-08-20] MEDS: ASPIRIN 81 MG CHEWABLE TABLET PO (12:18)
[2021-08-20] MEDS: TAMSULOSIN HCL 0.4 MG CAPSULE PO (12:18)
[2021-08-20] MEDS: traMADol HCL (*CRX) 50 MG TABLET PO (12:19)
--- NOTE | 2021-08-20 12:30 | PM.CNOR ---
Assessment and Plan Additional Plan Patient is a 55-year-old gentleman was been having frequent falls who presented the emergency room complaining of severe tailbone pain. He showed me a video of himself falling as he climbed a couple of steps onto his porch and he fell down these 2 steps back onto the yd level. I think this was captured by his ring camera. I remember that last year he showed me the and identical video but I see the date on this video is July 21 so this is a more recent episode. He has had this same exact fall before and at that time I was seeing him for pelvic fractures minimally displaced. I am not sure whether he had an associated nondisplaced sacral ala fracture at that time and I will have to review the records at my office later today. He continues to fall frequently. His health is poor. He has uncontrolled diabetes and I see that his hemoglobin A1c today was 13. It was 10 a couple of months ago so that indicates his diabetes is under extremely poor control currently. He is also on dialysis for end-stage renal disease. He has history of coronary artery disease with stent and ischemic cardiomyopathy history. He usually walks with a cane. He had lumbar spine x-rays obtained in the ER yesterday which on the lateral spot view of the sacrum demonstrate what appears to be a chronic transverse sacral fracture at about S3-4 or S4 segment. There seems to be a wide gap between the surfaces of the sacrum which was suggest chronic fracture but the overlying gas shadows preclude any definite statement on this. He complains that when he fell on July 21 he hurt his left knee. He had full range of motion of his left knee he had no tenderness no effusion normal stability no swelling and no tenderness anywhere about the calf or knee. He thinks that whenever he did month ago has resolved. He states that his would like to have us to look at his hips while he is here and I am going to be ordering a CT scan of his pelvis which will show us the status of the sacrum as well as the status of his prior pubic ramus fractures and this will also give us excellent imaging of both hip joints. I have discussed this plan with the patient. We will also obtain a 25 hydroxy vitamin-D level. It is very possible that he has some degree of renal osteodystrophy predisposing him to pelvic and sacral fractures. Certainly his multiple falls predisposed him to fracture as well. He does not need to have any specific weight-bearing restrictions for his transverse distal sacral fracture. History of Present Illness HPI Consult date: 08/20/21 Chief complaint: Weakness PMFSH Past Medical History Medical History Anxiety and depression Asthma CAD (coronary artery disease) s/p stent placement to ostial LAD and to mid RCA with Impella support Cardiomyopathy Ischemic CHF (congestive heart failure) Diabetes mellitus Dyslipidemia End stage chronic kidney disease Essential (primary) hypertension History of alcoholism History of CVA (cerebrovascular accident) Hx of fracture of pelvis PAD (peripheral artery disease) Moderate to severe on the right lower extremity Surgical History Surgical History H/O nasal septoplasty History of carpal tunnel release Radial fracture Right great toe amputee Status post ORIF of fracture of ankle Family History Family History Other Adopted Social History Social History Social History: Patient lives at home with his . He has 4 children. Three of the children are grown adults. One child has . He still smokes 1 pack per day for the past 40 years. He quit alcohol about 10 years ago but used to be heavy alcohol consumer. He denies drug use. He is a full code. He nominates his to be
--- NOTE | 2021-08-20 12:50 | PM.EVENT ---
Event Note Event Note Event Note: On dialysis and tolerating well. Seen at 12:15 p.m.
[2021-08-20 14:16] LABS: Glucose Point of Care 116 mg/dl (65-105)
[2021-08-20] MEDS: FUROSEMIDE 80 MG TABLET PO ×2 (14:26→18:55)
[2021-08-20 16:22] LABS: Glucose Point of Care 299 mg/dl (65-105)
--- NOTE | 2021-08-20 16:41 | PCHDNOTE ---
Patient tolerated treatment without any acute changes. Net UF: 4 Liters Blood processed: 67
[2021-08-20] MEDS: INSULIN ASPART (*BKC) 100 UNITS/ML SUB-Q (17:43)
[2021-08-20] MEDS: CLINDAMYCIN PHOS 1% 30 GM GEL 1 APPLIC TOPICAL (17:44)
[2021-08-20] MEDS: METOPROLOL SUCCINATE EXT REL 25 MG TABCR PO (20:11)
[2021-08-20] MEDS: INSULIN GLARGINE (*BKC) 100 UNITS/ML 20 UNITS SUB-Q (20:12)
[2021-08-20 20:57] LABS: Glucose Point of Care 314 mg/dl (65-105)
[2021-08-21] VITALS (10 sets, daily range): BP systolic 112–161; BP diastolic 70–82; PULSE 64–92; RESP 18; TEMP 36.3; O2SAT 93–100
[2021-08-21] MEDS: LEVOTHYROXINE SODIUM 50 MCG TABLET PO (05:30)
[2021-08-21] MEDS: HYDROcodone/acetaminophen (*CRX) 5-325 MG TABLET 1 TAB PO ×3 (06:12→20:44)
[2021-08-21 06:20] LABS: Hematocrit 30.7 % (42.0-52.0); Hemoglobin 9.5 g/dL (14.0-18.0); Mean Corpuscular HGB Conc 30.9 g/dl (32-36); Mean Corpuscular Hemoglobin 29.2 pg (26-34); Mean Corpuscular Volume 94.5 fl (80-100); Mean Platelet Volume 11.2 fl (7.4-10.4); Platelet Count Result 139 k/mm3 (150-375); Red Blood Count 3.25 M/mm3 (4.6-6.20); Red Cell Distribution Width 15.4 % (11.5-14.5); White Blood Count 7.2 K/mm3 (4.5-10.0)
[2021-08-21 06:52] LABS: Albumin Level 3.3 g/dL (3.5-5.1); Anion Gap 7 mmol/L (8-16); Blood Urea Nitrogen 52 mg/dL (9-20); Calcium 7.1 mg/dL (8.4-10.2); Carbon Dioxide 31 mmol/L (22-30); Chloride 90 mmol/L (98-107); Estimated CRCL calculation 18 ml/min; Estimated Glomerular Filt Rate 15; Glucose 230 mg/dL (65-110); Phosphorus 4.1 mg/dL (2.5-4.5); Sodium 128 mmol/L (137-145)
[2021-08-21 07:01] LABS: Vitamin D 25 Hydroxy 39.5 ng/mL
--- NOTE | 2021-08-21 07:35 | PM.PNORT ---
Progress Note: A&P Additional Plan CT scan shows no evidence of distal sacral transverse fracture. It appears that the overlying gas shadows caused an artifact on the plain x-rays suggesting there was a fracture the CT scan clearly rules that out. There is no definite evidence of acute injury. One cannot rule out injury to the coccyx and coccydynia as a cause of his symptoms from his repeated falls. He has a pilonidal cyst history and patient feels that his symptoms are due to exacerbation of his pilonidal cyst and that he needs to have this drained. I do not know about management of pilonidal cyst and I am going to consult General surgery for their opinion on this. His vitamin-D level was normal. The CT scan showed his pubic ramus fractures are well healed and his hip joints look normal. Subjective Subjective Date/Time Seen: 08/21/21 07:35 Objective Data Vital Signs Vital Signs: Vital Signs - 24 hr 08/20/21 07:55 08/20/21 08:00 08/20/21 10:30 Temperature 36.7 C Pulse Rate 71 74 Respiratory Rate 16 Blood Pressure 113/66 Pulse Oximetry 92 08/20/21 10:37 08/20/21 10:45 08/20/21 11:00 Temperature Pulse Rate 70 72 72 Respiratory Rate Blood Pressure 128/73 125/66 115/62 Pulse Oximetry 08/20/21 11:15 08/20/21 11:30 08/20/21 12:00 Temperature Pulse Rate 73 75 76 Respiratory Rate Blood Pressure 126/70 119/63 141/72 H Pulse Oximetry 08/20/21 12:15 08/20/21 12:30 08/20/21 12:45 Temperature Pulse Rate 77 80 78 Respiratory Rate Blood Pressure 119/59 L 128/73 121/74 Pulse Oximetry 08/20/21 13:00 08/20/21 13:15 08/20/21 13:30 Temperature Pulse Rate 79 78 78 Respiratory Rate Blood Pressure 133/68 132/71 129/65 Pulse Oximetry 08/20/21 13:40 08/20/21 14:00 08/20/21 14:15 Temperature 36.8 C Pulse Rate 79 80 84 Respiratory Rate 16 Blood Pressure 145/76 H 155/70 H Pulse Oximetry 96 08/20/21 16:00 08/20/21 20:00 08/20/21 20:11 Temperature Pulse Rate 96 90 88 Respiratory Rate Blood Pressure Pulse Oximetry 99 08/20/21 22:00 08/21/21 00:00 08/21/21 04:00 Temperature 36.7 C Pulse Rate 80 77 64 Respiratory Rate 18 Blood Pressure 132/64 Pulse Oximetry 99 08/21/21 06:00 Temperature 36.3 C L Pulse Rate 73 Respiratory Rate 18 Blood Pressure 112/77 Pulse Oximetry 100 Intake/Output Intake/Output: Intake & Output 08/18/21 08/19/21 08/20/21 08/21/21 23:59 23:59 23:59 23:59 Intake Total 620 690 300 Output Total 600 4000 200 Balance 20 -3310 100 Meds/Results Medications: Active Medications Generic Name Dose Route Start Last Admin Trade Name Freq PRN Reason Stop Dose Admin Acetaminophen 650 mg 08/19/21 17:25 08/19/21 23:09 Acetaminophen 325 Mg Tablet PO 650 mg Q6H PRN Administration Mild Pain (1-3) or Fever Hydrocodone Bitart/Acetaminophen 1 tab 08/19/21 17:25 08/21/21 06:12 Hydrocodone/Acetaminophen (*Crx) 5-325 Mg Tablet PO 1 tab Q6H PRN Administration Pain Rated 7-10 Albuterol 2 puff 08/19/21 17:24 08/19/21 20:29 Albuterol Sulfate (*Sp) Aerosol 1 Puff INHALATION 2 puff Q6HRT PRN Administration shortness of breath or wheezing Aspirin 81 mg 08/20/21 11:40 08/20/21 12:18 Aspirin 81 Mg Chewable Tablet PO 81 mg DAILY@0800 [facility] Administration Azelastine HCl 2 spray 08/19/21 17:24 Azelastine Hcl Nasal 0.1% 137 Mcg/Spr 30 Ml Btl NASAL Q12H PRN Allergy Symptoms Calcium Acetate 667 mg 08/20/21 08:00 08/20/21 16:08 Calcium Acetate 667 Mg Tablet PO Not Given TIDWM NIYA Clindamycin Phosphate 1 applic 08/20/21 09:00 08/20/21 18:54 Clindamycin Phos 1% 30 Gm Gel TOPICAL 09/19/21 08:59 Not Given TID NIYA Dextrose 12.5 gm 08/19/21 17:21 Dextrose 50% 25 Gm/50 Ml Syringe IV PUSH PRN PRN Hypoglycemia Protocol Ergocalciferol 50,000 unit 08/25/21 09:00 Ergocalciferol 50,000 Unit Capsule PO
[2021-08-21 07:57] LABS: Glucose Point of Care 261 mg/dl (65-105)
[2021-08-21] MEDS: INSULIN ASPART (*BKC) 100 UNITS/ML SUB-Q ×4 (08:32→16:59)
[2021-08-21] MEDS: TAMSULOSIN HCL 0.4 MG CAPSULE PO (08:34)
[2021-08-21] MEDS: ROSUVASTATIN 10 MG TABLET 40 MG PO (08:34)
[2021-08-21] MEDS: FUROSEMIDE 80 MG TABLET PO ×3 (08:35→16:36)
[2021-08-21] MEDS: CALCIUM ACETATE 667 MG TABLET PO ×3 (08:35→16:36)
[2021-08-21] MEDS: ASPIRIN 81 MG CHEWABLE TABLET PO (08:35)
[2021-08-21] MEDS: CLINDAMYCIN PHOS 1% 30 GM GEL 1 APPLIC TOPICAL ×3 (08:35→16:35)
[2021-08-21] MEDS: NICOTINE (*PBKC) 21 MG PATCH 1 PATCH TRANSDERM (08:36)
[2021-08-21] MEDS: HEPARIN SODIUM 5,000 UNITS/ML VIAL 5000 UNITS SUB-Q ×2 (08:38→20:43)
--- NOTE | 2021-08-21 10:16 | PM.CNGS ---
Assessment and Plan Assessment and plan (1) Left buttock abscess: Code(s): L02.31 - Cutaneous abscess of buttock Status: Acute Assessment and Plan: will plan I and D at bedside, will need local wound care (2) Sacral fracture: Code(s): S32.10XA - Unspecified fracture of sacrum, initial encounter for closed fracture Status: Acute Assessment and Plan: stable, old, mgmt per ortho (3) CAD (coronary artery disease): Code(s): I25.10 - Atherosclerotic heart disease of [place] coronary artery without angina pectoris Status: Acute Assessment and Plan: stable, mgmt per primary team (4) End stage chronic kidney disease: Code(s): N18.6 - End stage renal disease Status: Acute Assessment and Plan: HD per nephrology (5) Diabetes mellitus: Code(s): E11.9 - Type 2 diabetes mellitus without complications Status: Acute Assessment and Plan: stable mgmt per primary team (6) Essential (primary) hypertension: Code(s): I10 - Essential (primary) hypertension Status: Acute Assessment and Plan: stable, mgmt per primary team (7) Cigarette smoker: Code(s): F17.210 - Nicotine dependence, cigarettes, uncomplicated Status: Acute Assessment and Plan: not interested in cessation at this time History of Present Illness Consult details Consult date: 08/21/21 Reason for consult: wound care Requesting physician: Deon Figueroa MD Narrative: Pt is a 55 y/o M c multiple med issues including ESRD requiring HD, DM, CHF, HTN presenting to ED c/o frequent falls, weakness. Pt reports he recently fell on his tailbone and has been having pain. During workup, pt noted to have small abscess on L buttock. Pt reports abscess present for months and seems to be worse. Pt denies any fevers, chills, drainage. Review of Systems Constitutional: Constitutional: Reports as per HPI, Reports body ache(s), Denies chills, Reports fatigue, Denies fever(s), Reports frequent falls, Reports lethargy, Reports malaise, Reports poor appetite, Reports weakness, Denies weight gain and Denies weight loss Eyes: Eyes: Reports no additional eye complaints ENT: Reports system reviewed and no additional complaints, except as documented Cardiovascular: Cardiovascular: Reports no additional cardiovascular complaints Respiratory: Respiratory: Reports no additional respiratory complaints Gastrointestinal: Gastrointestinal: Reports no additional gastrointestinal complaints Genitourinary: Genitourinary: Reports no additional male genitourinary complaints Musculoskeletal: Musculoskeletal: Reports abnormal gait, Reports myalgias and Reports muscle weakness Integumentary/Breasts: Skin/Breast: Reports swelling Neurologic: Reports system reviewed and no additional complaints, except as documented Psychiatric: Psychiatric: Reports no additional psychiatric complaints Endocrine: Endocrine: Reports no additional endocrine complaints Hematologic/Lymphatic: Hematologic/Lymphatic: Reports no additional hematologic/lymphatic complaints Allergic/Immunologic: Allergic/Immunologic: Reports no additional allergic/immunologic complaints [facility] Past Medical History Medical History Anxiety and depression Asthma CAD (coronary artery disease) s/p stent placement to ostial LAD and to mid RCA with Impella support Cardiomyopathy Ischemic CHF (congestive heart failure) Diabetes mellitus Dyslipidemia End stage chronic kidney disease Essential (primary) hypertension History of alcoholism History of CVA (cerebrovascular accident) Hx of fracture of pelvis PAD (peripheral artery disease) Moderate to severe on the right lower extremity Surgical History Surgical History H/O nasal septoplasty History of carpal tunnel release Radial fracture Right great toe amputee
--- NOTE | 2021-08-21 11:25 | W.PM.PROC2 ---
Procedure Note - Detailed Date of Procedure 08/21/21 Pre-op Diagnosis left buttock abscess Post-op Diagnosis Same Procedure Performed complex incision and drainage left buttock abscess measuring approximately 4 x 3 x 3 cm Surgeon Kiersten Quintero MD Anesthesia Local Indications 55-year-old male with multiple medical issues presenting with chronic left buttock abscess Findings left buttock abscess measuring 4 x 3 x 3 cm Description of Procedure The patient was placed in the lateral position. A time-out was then done to verify the patient's identity, as well as the procedure being performed. I then localized and around the abscess with approximately 10 cc of 1% lidocaine with epinephrine. The area was then prepped and draped in normal sterile fashion. I began by making an incision with a 15 blade scalpel over the most fluctuant area of this abscess. Once through the dermis, I encountered the abscess cavity located within the subcutaneous tissue. A moderate amount of purulent drainage was noted. I then used a hemostat to further dissect and open up this cavity. Once completely open, the area measured approximately 4 x 3 x 3 cm. I then packed the cavity with quarter-inch iodoform to keep this cavity open and draining. Sterile dressing was then placed. The patient tolerated the procedure well. Estimated Blood Loss 5 Drains No Packing Yes Pathology None sent Complications No immediate complications Condition Stable Disposition Floor
[2021-08-21 11:48] LABS: Glucose Point of Care 256 mg/dl (65-105)
[2021-08-21] MEDS: LIDO 1%/EPINEPHRINE/PF 1:200,000 30 ML VIAL 10 ML XX (12:03)
--- NOTE | 2021-08-21 12:40 | PM.IMPN ---
Progress Note: A&P Assessment and Plan (1) Left buttock abscess: Code(s): L02.31 - Cutaneous abscess of buttock Status: Acute Assessment and Plan: CT scan did not show sacral fracture nor did it show abscess. Given the persistent pain and concern for infected ilonidal cyst, Gen Surg consultes. Patient underwent I&D left buttock abscess measuring 4x3cm. Probably explains his fevers. Continue dressing changes. Abx per GenSurg if needed but it appears I&D is the only treatment required. (2) Electrolyte abnormality: Code(s): E87.8 - Other disorders of electrolyte and fluid balance, not elsewhere classified Status: Acute Assessment and Plan: Sodium 124 and potassium 5.7 on admission. Lokelma offered but patient refused. The hyponatremia could be contributing to his weakness. Nephrology consulted for dialysis. EKG did not show any significant EKG changes to prompt acute dialysis. HD to control electrolyte abnormalities. Potassium 4.0 and Na 128 today. Continue to follow. (3) Weakness: Code(s): R53.1 - Weakness Status: Acute Assessment and Plan: Patient with what sounds like chronic weakness most likely related to his chronic medical problems. Symptoms appear to have worsened after his fall probably related to pain. He does have severe diabetic neuropathy. CT brain showing no acute findings. Continue PT/OT. (4) Sacral fracture: Code(s): S32.10XA - Unspecified fracture of sacrum, initial encounter for closed fracture Status: Acute Assessment and Plan: X-ray shows age-indeterminate displaced and slightly overriding transverse fracture of the sacrum at approximately S3-S4. Pelvic CT does not show sacral fracture. Sacral fracture ruled out. (5) Diabetes mellitus: Code(s): E11.9 - Type 2 diabetes mellitus without complications Status: Acute Assessment and Plan: A1c 13.2. His glucose on admission was 432. TSH normal. Glucose 230 this morning. Continue AccuCheks covering with sliding scale. Hypoglycemia protocol available as needed. Continue current medications with Lantus at night. Advance Lantus at night and start meal time insulin. (6) End stage chronic kidney disease: Code(s): N18.6 - End stage renal disease Status: Acute Assessment and Plan: Patient with end-stage renal disease with a fistula in the left upper arm as well as a tunneled catheter in his right upper chest. He follows with Dr. Han and receives dialysis [facility] at [facility]. Appreciate Nephrology input. HD management per nephrology. (7) Essential (primary) hypertension: Code(s): I10 - Essential (primary) hypertension Status: Acute Assessment and Plan: Blood pressure was elevated on admission but has improved. Continue current medications. Titrate medications accordingly. (8) CAD (coronary artery disease): Code(s): I25.10 - Atherosclerotic heart disease of [place] coronary artery without angina pectoris Status: Acute Assessment and Plan: Patient with known coronary disease. No complaints of chest pain, palpitations or shortness of breath. Will continue his current medical management with Toprol and Crestor. Aspirin added. (9) CHF (congestive heart failure): Code(s): I50.9 - Heart failure, unspecified Status: Acute Assessment and Plan: Echo in January 2020 showed EF of 40% with normal diastolic function and hypokinetic inferior and posterior segments. Did not appear to be overtly fluid overloaded on admission. Use dialysis to control fluid status. (10) Cigarette smoker: Code(s): F17.210 - Nicotine dependence, cigarettes, uncomplicated Status: Acute Assessment and Plan: Patient was educated about the benefits of smoking cessation. (11) DVT prophylaxis: Code(s): Z29.9 - Encounter for prophylactic measures, unspecified
--- NOTE | 2021-08-21 12:41 | PM.PNNEP ---
Progress Note: A&P Additional Plan 1. Zaynab has end-stage renal disease. This is due to diabetes and hypertension. Due for dialysis tomorrow discussed with Dr. Granger . he is being discharged today. 2. The patient is falling frequently. 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 He is being evaluated by Dr. Granger. He is going to get physical therapy and occupational therapy. 3. Patient has diabetes. A1c was 13.2. On Accu-Cheks and sliding-scale insulin per hospitalist 4. Hypertension blood pressure is Doing well with a systolic between 110 and 130 overnight 5. Renal osteodystrophy calcium was a little low but so is albumin. Phosphorus level is good. 6. Hyponatremia. This is from fluid intake. Dialysis should help this. 7. The patient continues to smoke. He smokes about a pack a day. He has tried to quit in the past but has given up. Encouraged to stop smoking. Subjective Date/time seen: 08/21/21 12:41 Interval history: patient feels okay. He had dialysis yesterday. He had the kiki nidal cyst drained. Review of Systems Cardiovascular: Cardiovascular: Reports no additional cardiovascular complaints Respiratory: Respiratory: Reports no additional respiratory complaints Gastrointestinal: Gastrointestinal: Reports no additional gastrointestinal complaints Genitourinary: Genitourinary: Reports no additional male genitourinary complaints Exam Narrative: WDWN in NAD skin no rash head ncat lungs clear cor reg no rub abd BS+ nontender and soft ext no edema. Objective Data Vital Signs Vital Signs: Vital Signs - 24 hr 08/20/21 12:45 08/20/21 13:00 08/20/21 13:15 Temperature Pulse Rate 78 79 78 Respiratory Rate Blood Pressure 121/74 133/68 132/71 Pulse Oximetry 08/20/21 13:30 08/20/21 13:40 08/20/21 14:00 Temperature 36.8 C Pulse Rate 78 79 80 Respiratory Rate 16 Blood Pressure 129/65 145/76 H 155/70 H Pulse Oximetry 96 08/20/21 14:15 08/20/21 16:00 08/20/21 20:00 Temperature Pulse Rate 84 96 90 Respiratory Rate Blood Pressure Pulse Oximetry 99 08/20/21 20:11 08/20/21 22:00 08/21/21 00:00 Temperature 36.7 C Pulse Rate 88 80 77 Respiratory Rate 18 Blood Pressure 132/64 Pulse Oximetry 99 08/21/21 04:00 08/21/21 06:00 08/21/21 08:00 Temperature 36.3 C L Pulse Rate 64 73 74 Respiratory Rate 18 Blood Pressure 112/77 Pulse Oximetry 100 08/21/21 09:33 Temperature Pulse Rate Respiratory Rate Blood Pressure Pulse Oximetry 93 Intake/Output Intake/Output: Intake & Output 08/18/21 08/19/21 08/20/21 08/21/21 23:59 23:59 23:59 23:59 Intake Total 620 690 540 Output Total 600 4000 200 Balance 20 -3310 340 Meds/Results Medications: Active Medications Generic Name Dose Route Start Last Admin Trade Name Freq PRN Reason Stop Dose Admin Acetaminophen 650 mg 08/19/21 17:25 08/19/21 23:09 Acetaminophen 325 Mg Tablet PO 650 mg Q6H PRN Administration Mild Pain (1-3) or Fever Hydrocodone Bitart/Acetaminophen 1 tab 08/19/21 17:25 08/21/21 12:13 Hydrocodone/Acetaminophen (*Crx) 5-325 Mg Tablet PO 1 tab Q6H PRN Administration Pain Rated 7-10 Albuterol 2 puff 08/19/21 17:24 08/19/21 20:29 Albuterol Sulfate (*Sp) Aerosol 1 Puff INHALATION 2 puff Q6HRT PRN Administration shortness of breath or wheezing Aspirin 81 mg 08/20/21 11:40 08/21/21 08:35 Aspirin 81 Mg Chewable Tablet PO 81 mg DAILY@0800 [facility] Administration Azelastine HCl 2 spray 08/19/21 17:24 Azelastine Hcl Nasal 0.1% 137 Mcg/Spr 30 Ml Btl NASAL Q12H PRN Allergy Symptoms Calcium Acetate 667 mg 08/20/21 08:00 08/21/21 12:07 Calcium Acetate 667 Mg Tablet PO 667 mg TIDWM NIYA Administration Clindamycin Phosphate 1 applic 08/20/21 09:00 08/21/21 12:07 Clindamycin Phos 1% 30 Gm Gel TOPICAL 09/19/21 08:59
[2021-08-21 16:51] LABS: Glucose Point of Care 278 mg/dl (65-105)
[2021-08-21 20:23] LABS: Glucose Point of Care 349 mg/dl (65-105)
[2021-08-21] MEDS: METOPROLOL SUCCINATE EXT REL 25 MG TABCR PO (20:43)
[2021-08-21] MEDS: INSULIN GLARGINE (*BKC) 100 UNITS/ML 28 UNITS SUB-Q (21:27)
[2021-08-22] MEDS: LEVOTHYROXINE SODIUM 50 MCG TABLET PO (05:42)
[2021-08-22 06:00] VITALS: BP 141/73; PULSE 73; RESP 18; TEMP 35.7; O2SAT 100
[2021-08-22 07:09] LABS: Hematocrit 32.2 % (42.0-52.0); Hemoglobin 10.2 g/dL (14.0-18.0); Mean Corpuscular HGB Conc 31.7 g/dl (32-36); Mean Corpuscular Hemoglobin 29.4 pg (26-34); Mean Corpuscular Volume 92.8 fl (80-100); Mean Platelet Volume 10.4 fl (7.4-10.4); Platelet Count Result 166 k/mm3 (150-375); Red Blood Count 3.47 M/mm3 (4.6-6.20); Red Cell Distribution Width 15.3 % (11.5-14.5); White Blood Count 7.4 K/mm3 (4.5-10.0)
[2021-08-22 07:45] LABS: Anion Gap 10 mmol/L (8-16); Blood Urea Nitrogen 66 mg/dL (9-20); Calcium 7.3 mg/dL (8.4-10.2); Carbon Dioxide 28 mmol/L (22-30); Chloride 90 mmol/L (98-107); Estimated CRCL calculation 14 ml/min; Estimated Glomerular Filt Rate 11; Glucose 182 mg/dL (65-110); Magnesium 2.8 mg/dL (1.6-2.3); Phosphorus 4.4 mg/dL (2.5-4.5); Potassium 4.7 mmol/L (3.4-5.0); Sodium 128 mmol/L (137-145)
--- NOTE | 2021-08-22 08:44 | PM.PNGS ---
Progress Note: A&P Assessment and Plan (1) Left buttock abscess: Code(s): L02.31 - Cutaneous abscess of buttock Status: Acute Assessment and Plan: s/p I and D, cont local wound care (no need for further packing), cont abx, ok to dc from surgical standpoint Subjective Subjective Date/Time Seen: 08/22/21 08:44 no issues, reports pain, pressure significantly improved in L buttock Review of Systems Review of Systems: All systems reviewed & are unremarkable except as noted in HPI and below Exam Const: General: cooperative, comfortable and no acute distress Resp: Auscultation: clear to auscultation bilaterally Cardio: Rate: regular rate Rhythm: regular rhythm Skin: Other: L buttock abscess- unpacked, good drainage, decreased induration Objective Data Vital Signs Vital Signs: Vital Signs - 24 hr 08/21/21 09:33 08/21/21 12:00 08/21/21 14:00 Temperature 36.3 C L Pulse Rate 77 79 Respiratory Rate 18 Blood Pressure 133/82 Pulse Oximetry 93 100 08/21/21 16:00 08/21/21 20:43 08/21/21 21:59 Temperature 36.3 C L Pulse Rate 82 92 80 Respiratory Rate 18 Blood Pressure 161/70 H Pulse Oximetry 100 08/22/21 06:00 Temperature 35.7 C L Pulse Rate 73 Respiratory Rate 18 Blood Pressure 141/73 H Pulse Oximetry 100 Intake/Output Intake/Output: Intake & Output 08/19/21 08/20/21 08/21/21 08/22/21 23:59 23:59 23:59 23:59 Intake Total 557 447 2335 200 Output Total 600 4000 700 0 Balance 20 -3310 1060 200 Meds/Results Medications: Active Medications Generic Name Dose Route Start Last Admin Trade Name Freq PRN Reason Stop Dose Admin Acetaminophen 650 mg 08/19/21 17:25 08/19/21 23:09 Acetaminophen 325 Mg Tablet PO 650 mg Q6H PRN Administration Mild Pain (1-3) or Fever Hydrocodone Bitart/Acetaminophen 1 tab 08/19/21 17:25 08/21/21 20:44 Hydrocodone/Acetaminophen (*Crx) 5-325 Mg Tablet PO 1 tab Q6H PRN Administration Pain Rated 7-10 Albuterol 2 puff 08/19/21 17:24 08/19/21 20:29 Albuterol Sulfate (*Sp) Aerosol 1 Puff INHALATION 2 puff Q6HRT PRN Administration shortness of breath or wheezing Aspirin 81 mg 08/20/21 11:40 08/21/21 08:35 Aspirin 81 Mg Chewable Tablet PO 81 mg DAILY@0800 [facility] Administration Azelastine HCl 2 spray 08/19/21 17:24 Azelastine Hcl Nasal 0.1% 137 Mcg/Spr 30 Ml Btl NASAL Q12H PRN Allergy Symptoms Calcium Acetate 667 mg 08/20/21 08:00 08/21/21 16:36 Calcium Acetate 667 Mg Tablet PO 667 mg TIDWM NIYA Administration Clindamycin Phosphate 1 applic 08/20/21 09:00 08/21/21 16:35 Clindamycin Phos 1% 30 Gm Gel TOPICAL 09/19/21 08:59 1 applic TID NIYA Administration Dextrose 12.5 gm 08/19/21 17:21 Dextrose 50% 25 Gm/50 Ml Syringe IV PUSH PRN PRN Hypoglycemia Protocol Ergocalciferol 50,000 unit 08/25/21 09:00 Ergocalciferol 50,000 Unit Capsule PO Mo@0900 NIYA Furosemide 80 mg 08/19/21 17:40 08/21/21 16:36 Furosemide 80 Mg Tablet PO 80 mg TID NIYA Administration Glucagon 1 mg 08/19/21 17:21 Glucagon For Inj 1 Mg Vial IM PRN PRN Hypoglycemia Protocol Glucose 15 gm 08/19/21 17:21 Glucose Oral Gel 15 Gm Of Glucse In 37.5 Gm Tube PO PRN PRN Hypoglycemia Protocol Heparin Sodium (Porcine) 5,000 units 08/19/21 21:00 08/21/21 20:43 Heparin Sodium 5,000 Units/Ml Vial SUB-Q 5,000 units Q12HR NIYA Administration Dextrose 1,000 mls @ 100 mls/hr 08/19/21 17:21 Dextrose 5% 1,000 Ml IVPB PRN PRN Hypoglycemia Protocol Insulin Aspart 3 - 6 units 08/19/21 17:00 08/21/21 16:59 Insulin Aspart (*Bkc) 100 Units/Ml SUB-Q 4 units TIDWM NIYA Administration Protocol Insulin Aspart 7 units 08/22/21 08:00 Insulin Aspart (*Bkc) 100 Units/Ml SUB-Q TIDWM NIYA Insulin Glargine 28 units 08/21/21 21:00 08/21/21 21:27 Insulin Glargine (*[facility]) 100
[2021-08-22 08:49] LABS: Glucose Point of Care 223 mg/dl (65-105)
[2021-08-22] MEDS: INSULIN ASPART (*BKC) 100 UNITS/ML SUB-Q (09:10)
[2021-08-22] MEDS: INSULIN ASPART (*BKC) 100 UNITS/ML 7 UNITS SUB-Q ×2 (09:10→13:42)
[2021-08-22] MEDS: CLINDAMYCIN PHOS 1% 30 GM GEL 1 APPLIC TOPICAL ×2 (09:11→13:42)
[2021-08-22] MEDS: HEPARIN SODIUM 5,000 UNITS/ML VIAL 5000 UNITS SUB-Q (09:11)
[2021-08-22] MEDS: FUROSEMIDE 80 MG TABLET PO ×2 (09:13→13:42)
[2021-08-22] MEDS: NICOTINE (*PBKC) 21 MG PATCH 1 PATCH TRANSDERM (09:13)
[2021-08-22] MEDS: ROSUVASTATIN 10 MG TABLET 40 MG PO (09:13)
[2021-08-22] MEDS: ASPIRIN 81 MG CHEWABLE TABLET PO (09:13)
[2021-08-22] MEDS: TAMSULOSIN HCL 0.4 MG CAPSULE PO (09:14)
[2021-08-22] MEDS: CALCIUM ACETATE 667 MG TABLET PO ×2 (09:14→13:42)
[2021-08-22] MEDS: HYDROcodone/acetaminophen (*CRX) 5-325 MG TABLET 1 TAB PO (09:14)
--- NOTE | 2021-08-22 10:17 | PM.PNNEP ---
Progress Note: A&P Additional Plan 1. Zaynab has end-stage renal disease. This is due to diabetes and hypertension. Due for dialysis tomorrow discussed with Dr. Granger . he is being discharged today. 2. The patient is falling frequently. 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 He is being evaluated by Dr. Granger. He is going to get physical therapy and occupational therapy. 3. Patient has diabetes. A1c was 13.2. On Accu-Cheks and sliding-scale insulin per hospitalist 4. Hypertension blood pressure is under good control 5. Renal osteodystrophy calcium was a little low but so is albumin. Phosphorus level is good. 6. Hyponatremia. This is from fluid intake. Dialysis should help this. 7. The patient continues to smoke. He smokes about a pack a day. He has tried to quit in the past but has given up. Encouraged to stop smoking. Subjective Date/time seen: 08/22/21 10:17 Interval history: patient feels okay. He had dialysis on Wednesday. He had the kiki nidal cyst drained. He wants to go home today. He wants to do dialysis as an outpatient. Exam Narrative: WDWN in NAD skin no rash or subQ nodules head ncat lungs clear cor reg no rub abd BS+ nontender and soft ext no edema or cyanosis Objective Data Vital Signs Vital Signs: Vital Signs - 24 hr 08/21/21 12:00 08/21/21 14:00 08/21/21 16:00 Temperature 36.3 C L Pulse Rate 77 79 82 Respiratory Rate 18 Blood Pressure 133/82 Pulse Oximetry 100 08/21/21 20:43 08/21/21 21:59 08/22/21 06:00 Temperature 36.3 C L 35.7 C L Pulse Rate 92 80 73 Respiratory Rate 18 18 Blood Pressure 161/70 H 141/73 H Pulse Oximetry 100 100 Intake/Output Intake/Output: Intake & Output 08/19/21 08/20/21 08/21/21 08/22/21 23:59 23:59 23:59 23:59 Intake Total 176 953 6690 440 Output Total 600 4000 700 0 Balance 20 -3310 1060 440 Meds/Results Medications: Active Medications Generic Name Dose Route Start Last Admin Trade Name Freq PRN Reason Stop Dose Admin Acetaminophen 650 mg 08/19/21 17:25 08/19/21 23:09 Acetaminophen 325 Mg Tablet PO 650 mg Q6H PRN Administration Mild Pain (1-3) or Fever Hydrocodone Bitart/Acetaminophen 1 tab 08/19/21 17:25 08/22/21 09:14 Hydrocodone/Acetaminophen (*Crx) 5-325 Mg Tablet PO 1 tab Q6H PRN Administration Pain Rated 7-10 Albuterol 2 puff 08/19/21 17:24 08/19/21 20:29 Albuterol Sulfate (*Sp) Aerosol 1 Puff INHALATION 2 puff Q6HRT PRN Administration shortness of breath or wheezing Aspirin 81 mg 08/20/21 11:40 08/22/21 09:13 Aspirin 81 Mg Chewable Tablet PO 81 mg DAILY@0800 [facility] Administration Azelastine HCl 2 spray 08/19/21 17:24 Azelastine Hcl Nasal 0.1% 137 Mcg/Spr 30 Ml Btl NASAL Q12H PRN Allergy Symptoms Calcium Acetate 667 mg 08/20/21 08:00 08/22/21 09:14 Calcium Acetate 667 Mg Tablet PO 667 mg TIDWM NIYA Administration Clindamycin Phosphate 1 applic 08/20/21 09:00 08/22/21 09:11 Clindamycin Phos 1% 30 Gm Gel TOPICAL 09/19/21 08:59 1 applic TID NIYA Administration Dextrose 12.5 gm 08/19/21 17:21 Dextrose 50% 25 Gm/50 Ml Syringe IV PUSH PRN PRN Hypoglycemia Protocol Ergocalciferol 50,000 unit 08/25/21 09:00 Ergocalciferol 50,000 Unit Capsule PO Mo@0900 [facility]YA Furosemide 80 mg 08/19/21 17:40 08/22/21 09:13 Furosemide 80 Mg Tablet PO 80 mg TID NIYA Administration Glucagon 1 mg 08/19/21 17:21 Glucagon For Inj 1 Mg Vial IM PRN PRN Hypoglycemia Protocol Glucose 15 gm 08/19/21 17:21 Glucose Oral Gel 15 Gm Of Glucse In 37.5 Gm Tube PO PRN PRN Hypoglycemia Protocol Heparin Sodium (Porcine) 5,000 units 08/19/21 21:00 08/22/21 09:11 Heparin Sodium 5,000 Units/Ml Vial SUB-Q 5,000 units Q12HR NIYA Administration Dextrose 1,000 mls @ 100 mls/hr 08/19/21 17:21
[2021-08-22 11:59] LABS: Glucose Point of Care 187 mg/dl (65-105)
[2021-08-22 14:00] VITALS: BP 146/77; PULSE 72; RESP 16; TEMP 36.2; O2SAT 100
--- NOTE | 2021-08-22 15:47 | PM.DS ---
DS: Admitting Diagnosis Discharge Date 08/22/21 Admitting Diagnosis Weakness DS: Discharge Diagnosis Discharge Diagnosis (1) Left buttock abscess: Code(s): L02.31 - Cutaneous abscess of buttock Status: Acute Assessment and Plan: Lumbar xray on admission was concerning for a sacral fracture but CT scan did not show sacral fracture nor did it show abscess. Given the persistent pain in the sacral area and concern for infected pilonidal cyst, Gen Surg was consulted. Patient underwent I&D left buttock abscess measuring 4x3cm. This probably explains his fevers. BCx NGTD. No wound cultures obtained. Paln for just dry dressings with Augmentin x 5 days. Follow up with General Surgery in 1 week. (2) Electrolyte abnormality: Code(s): E87.8 - Other disorders of electrolyte and fluid balance, not elsewhere classified Status: Acute Assessment and Plan: Sodium 124 and potassium 5.7 on admission. Lokelma offered but patient refused. The hyponatremia could be contributing to his weakness. Nephrology consulted for dialysis. EKG did not show any significant EKG changes to prompt acute dialysis. HD was used to control electrolyte abnormalities. Potassium 4.7 and Na 128 today. Plan HD tomorrow as scheduled. (3) Weakness: Code(s): R53.1 - Weakness Status: Acute Assessment and Plan: Patient with what sounds like chronic weakness most likely related to his chronic medical problems. Symptoms appear to have worsened after his fall felt related to pain. He does have severe diabetic neuropathy. CT brain showing no acute findings. He worked with PT/OT and was up walking unassisted with a walker. He was advised to continue using walker and will arrange for outpatient therapy. (4) Sacral fracture: Code(s): S32.10XA - Unspecified fracture of sacrum, initial encounter for closed fracture Status: Acute Assessment and Plan: X-ray shows age-indeterminate displaced and slightly overriding transverse fracture of the sacrum at approximately S3-S4. Pelvic CT does not show sacral fracture. Sacral fracture ruled out. (5) Diabetes mellitus: Code(s): E11.9 - Type 2 diabetes mellitus without complications Status: Acute Assessment and Plan: A1c 13.2. His glucose on admission was 432. TSH normal. Glucose 230 this morning. We monitored glucose closely with AccuCheks covering with sliding scale. Hypoglycemia protocol was available as needed. (6) End stage chronic kidney disease: Code(s): N18.6 - End stage renal disease Status: Acute Assessment and Plan: Patient with end-stage renal disease with a fistula in the left upper arm as well as a tunneled catheter in his right upper chest. He follows with Dr. Han and receives dialysis [facility] at [facility]. Appreciate Nephrology input. He received HD here. Patient encouraged to (7) Essential (primary) hypertension: Code(s): I10 - Essential (primary) hypertension Status: Acute Assessment and Plan: Blood pressure was elevated on admission but has improved. We continued his current medications. (8) CAD (coronary artery disease): Code(s): I25.10 - Atherosclerotic heart disease of [place] coronary artery without angina pectoris Status: Acute Assessment and Plan: Patient with known coronary disease. No complaints of chest pain, palpitations or shortness of breath. We continued his current medical management with Toprol and Crestor. Aspirin was added. (9) CHF (congestive heart failure): Code(s): I50.9 - Heart failure, unspecified Status: Acute Assessment and Plan: Echo in January 2020 showed EF of 40% with normal diastolic function and hypokinetic inferior and posterior segments. Did not appear to be overtly fluid overloaded on admission here. We used dialysis to control fluid status. (10) Cigarette smoker:
== END 2021-08-22 16:40 | disposition home or self-care (01) ==
LOC: ANHED 11:54 → ANH3MEDSUR 12:12
PROVIDERS: Internal Medicine Nephrology; Orthopaedic Surgery; Admitting Provider Internal Medicine; Emergency Provider Nurse Practitioner Family; PCP Internal Medicine; Visit Provider Internal Medicine
DX: R53.1 Weakness (principal); L02.31 Cutaneous abscess of buttock; N18.6 End stage renal disease; I50.9 Heart failure, unspecified; I13.2 Hypertensive heart and chronic kidney disease with heart failure and with stage 5 chronic kidney disease, or end stage renal disease; I25.10 Atherosclerotic heart disease of native coronary artery without angina pectoris; I69.351 Hemiplegia and hemiparesis following cerebral infarction affecting right dominant side; E11.51 Type 2 diabetes mellitus with diabetic peripheral angiopathy without gangrene; E11.40 Type 2 diabetes mellitus with diabetic neuropathy, unspecified; E11.22 Type 2 diabetes mellitus with diabetic chronic kidney disease; E78.5 Hyperlipidemia, unspecified; E87.1 Hypo-osmolality and hyponatremia; N25.0 Renal osteodystrophy; J45.909 Unspecified asthma, uncomplicated; R29.6 Repeated falls; F10.21 Alcohol dependence, in remission; F41.9 Anxiety disorder, unspecified; F32.A Depression, unspecified; F17.210 Nicotine dependence, cigarettes, uncomplicated; W19.XXXA Unspecified fall, initial encounter; Z99.2 Dependence on renal dialysis; Z89.411 Acquired absence of right great toe; Z95.5 Presence of coronary angioplasty implant and graft
CPT/HCPCS: 10061; 36415; 70450; 71046; 72100; 72192; 80053; 80069; 81001; 82306; 82533; 82948; 83036; 83735; 84443; 84484; 85025; 85027; 86706; 87040; 87340; 93005; 94640; 96372; 96374; 96375; 97110; 97161; 97165; 99285; A9270; G0257; G0378; J1644; J1815; J2270; J7030; Q5105

== ENCOUNTER 2021-10-21 10:22 | Emergency (ER) | payer MEDICARE, SELFPAY ==
--- NOTE | ~2021-10-21 | XR_ITS ---
XR ankle LT min 3V DATE: 10/21/2021 10:46 INDICATION: Pain at the left ankle and dorsum of the left foot after twisting injury 8 days ago TECHNIQUE: 4 views COMPARISON: None FINDINGS: There is extensive calcification of the anterior and posterior tibial and dorsalis pedis ar teries in a 55-year-old; consider diabetes. Plate and screws are noted along the distal fibular shaft and lateral malleolus. There is mild soft tissue swelling of the lateral aspect of the left ankle. No recent fracture or dis location of the ankle or disruption of the ankle mortise is detected. Plantar calcaneal enthesopathy. Osteoarthritic changes at the tarsal and tarsometatarsal joints. IMPRESSION: Status post ORIF lateral malleolus; no recent fracture is detected Lateral soft tissue swelling Plantar calcaneal enthesopathy Osteoarthritis at the tarsal and tarsometatarsal joints Prominent particular calcification; consider diabetes Reviewed, dictated and finalized at location A.
--- NOTE | ~2021-10-21 | XR_ITS ---
XR foot LT min 3V DATE: 10/21/2021 10:47 INDICATION: Pain of the dorsal left foot following twisting injury 8 days ago TECHNIQUE: 4 views COMPARISON: 06/30/2014 left foot FINDINGS: Since 06/30/2014 there is prominent calcification of the anterior and posterior tibial and d orsalis pedis arteries as well as metatarsal artery and digital artery calcification, suggesting diab etes or less likely hyperparathyroidism or other hypercalcemic state. Plate and screws along the distal fibular shaft and lateral malleolus. Mild plantar calcaneal enthesopathy. Prominent osteoarthritic change at the first and second tarsometatarsal joints. There is flattening a nd deformity of second metatarsal head consistent with osteonecrosis with mild secondary osteoarthrit is. No fracture or dislocation, periosteal reaction or bone destruction. IMPRESSION: No fracture or dislocation Extensive arterial calcifications including metatarsal and digital artery calcification, suggesting d iabetes most likely Plate and screws of distal fibula Mild plantar calcaneal enthesopathy Osteoarthritis particularly at first and second tarsometatarsal joints Second metatarsal head deformity likely due to osteonecrosis with secondary osteoarthritis at the sec ond metatarsophalangeal joint Reviewed, dictated and finalized at location A. IMPRESSION: No fracture or dislocation Extensive arterial calcifications including metatarsal and digital artery calci fication, suggesting diabetes most likely Plate and screws of distal fibula Mild plantar calcaneal enthesopathy Osteoarthritis particularly at first and second tarsometatarsal joints Second metatarsal head deformity likely due to osteonecrosis with secondary ost eoarthritis at the second metatarsophalangeal joint
[2021-10-21 10:29] VITALS: BP 164/77; PULSE 83; RESP 16; TEMP 37.1; O2SAT 99
--- NOTE | 2021-10-21 10:39 | ED.LOWEXIN ---
HPI - Extremity Injury (Lower) General Chief Complaint: Extremity Injury, Lower Stated Complaint: left ankle injury Time Seen by Provider: 10/21/21 10:39 Source: patient Mode of arrival: ambulatory Limitations: no limitations History of Present Illness HPI Narrative: 55-year-old male presents with complaint of left lateral ankle pain radiating into dorsal aspect of left foot. States that he was walking up his front porch stairs and he twisted left ankle causing him to fall. Was able to get up on his own. History of diabetes. Reports neuropathy to ankles and feet. States that he cannot feel a lot of pain but knows that it is there. Is currently in physical therapy, wants to make sure that he does not have a fracture prior to therapy today. Range of motion and distal neurovascularly intact. All systems reviewed and negative except as noted above. Related Data Home Medications Medication Instructions Recorded Confirmed azelastine 137 mcg (0.1 %) nasal 2 spray intranasal Q12H PRN 08/19/21 09/24/21 spray aerosol Allergy Symptoms cholecalciferol (vitamin D3) 1,250 1,250 mcg PO WEEKLY 08/19/21 09/24/21 mcg (50,000 unit) capsule clindamycin phosphate 1 % topical 1 applic topical TID 08/19/21 09/24/21 solution dextroamphetamine-amphetamine 20 20 mg PO BID 08/19/21 09/24/21 mg tablet furosemide 80 mg tablet (Lasix) 80 mg PO TID 08/19/21 09/24/21 glucagon 3 mg/actuation nasal 3 mg intranasal DAILY PRN 08/19/21 09/24/21 spray (Baqsimi) Hypoglycemia insulin degludec 100 unit/mL (3 38 unit subcut DAILY 08/19/21 09/24/21 mL) subcutaneous pen (Tresiba FlexTouch U-100 insulin) insulin lispro 100 unit/mL 1 sliding scale dose subcut AC 08/19/21 09/24/21 subcutaneous pen (Humalog KwikPen (U-100) Insulin) levothyroxine 50 mcg tablet 50 mcg PO DAILY 08/19/21 09/24/21 metoprolol succinate 25 mg capsule 25 mg PO HS 08/19/21 09/24/21 sprinkle, ext. release 24 hr rosuvastatin 40 mg tablet 40 mg PO DAILY 08/19/21 09/24/21 tamsulosin 0.4 mg capsule 0.4 mg PO DAILY 08/19/21 09/24/21 mecobalamin (vitamin B12) 5,000 5,000 mcg PO DAILY 09/24/21 09/24/21 mcg lozenge pyridoxine (vitamin B6) 25 mg 25 mg PO DAILY 09/24/21 09/24/21 tablet Allergies Allergy/AdvReac Type Severity Reaction Status Date / Time cantaloupe Allergy Severe ITCHING, Verified 09/24/21 13:28 SWOLLEN LIPS Review of Systems Review of Systems: CONSTITUTIONAL: Denies fever, chills, or sweats. EYES: Denies visual changes, redness, or discharge. ENT: Denies rhinorrhea, congestion, sore throat, or otalgia. CARDIOVASCULAR: Denies chest pain, palpitations, or edema. RESPIRATORY: Denies cough or dyspnea. GASTROINTESTINAL: Denies abdominal pain, nausea, vomiting, or diarrhea. GENITOURINARY: Denies dysuria or hematuria. SKIN: Denies rash or itching. MUSCULOSKELETAL: Denies back pain. Reports pain to lateral aspect left ankle with radiation into dorsal aspect left foot. NEUROLOGIC: Denies headache, numbness, or weakness. PSYCHIATRIC: Denies anxiety or depression. All other systems reviewed are negative, except as documented in HPI. [facility] Past Medical History Medical History Anxiety and depression Asthma CAD (coronary artery disease) s/p stent placement to ostial LAD and to mid RCA with Impella support Cardiomyopathy Ischemic CHF (congestive heart failure) Diabetes mellitus Dyslipidemia End stage chronic kidney disease Essential (primary) hypertension History of alcoholism History of CVA (cerebrovascular accident) Hx of fracture of pelvis PAD (peripheral artery disease) Moderate to severe on the right lower extremity Surgical History Surgical History H/O nasal septoplasty History of carpal tunnel release History of incision and drainage complex I&D left buttock abscess 4x3x3 cm 08/21/21 Radial fracture Right great toe amputee Stat
== END 2021-10-21 11:14 | disposition home or self-care (01) ==
PROVIDERS: Emergency Provider Nurse Practitioner Family; PCP Internal Medicine
DX: S93.402A Sprain of unspecified ligament of left ankle, initial encounter (principal); X50.9XXA Other and unspecified overexertion or strenuous movements or postures, initial encounter; J45.909 Unspecified asthma, uncomplicated; I13.2 Hypertensive heart and chronic kidney disease with heart failure and with stage 5 chronic kidney disease, or end stage renal disease; E11.22 Type 2 diabetes mellitus with diabetic chronic kidney disease; N18.6 End stage renal disease; I50.9 Heart failure, unspecified; Z79.4 Long term (current) use of insulin; I25.10 Atherosclerotic heart disease of native coronary artery without angina pectoris; Z95.5 Presence of coronary angioplasty implant and graft; E78.5 Hyperlipidemia, unspecified; Z86.73 Personal history of transient ischemic attack (TIA), and cerebral infarction without residual deficits; I73.9 Peripheral vascular disease, unspecified; F17.210 Nicotine dependence, cigarettes, uncomplicated
CPT/HCPCS: 73610; 73630; 99213; G0463

== ENCOUNTER 2021-10-23 12:30 | Outpatient (RCR) | payer MEDICARE, SELFPAY ==
--- NOTE | 2021-09-22 13:44 | PTOPEVAL ---
PHYSICAL THERAPY EVALUATION AND PLAN OF CARE Thank you for referring Jesus Ceja to [facility].? The patient is scheduled to be seen for therapy 2x/week for 5 weeks. Please review, sign, date and return this plan of care NICKO. I agree with and certify that the following plan of care is medically necessary. Referring Physician Date Attending Provider: Jitendra Granger MD Diagnosis weakness Subjective Information Jesus reports multiple random Query Text:As Reported By Patient/ falls - at least 8x this year. Family States that he has weakness in his back and hips and ankles. States he does not have good balance. Gallon of milk seems very heavy. Increased falls started about September of 2020. Most recent fall was about 3-4 weeks ago - was stepping off the porch and leg gave out and fell. States he has a spot in his back that gets kinked. Has neuropathy in bilateral feet. 3 days a week dialysis. right great toe amputation. diabetes controlled with long acting insulin and does not eat sugar . States it is difficult to get up from a seated position. Has basements steps but does not use them; There are a couple of steps into and out of the home - no rails. 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 Has a 2WW that he will use to and from dialysis and in the yard. Pain Assessment Timing of Pain Assessment Timing of Pain Assessment Assessment Self Report Self Report Pain Level 0 Pain Score Pain Score 0: Self Report Lower Extremity Muscle Strength Testing Ankle Strength Bilateral Ankle Dorsiflexion Strength 3 Fair Balance Comment 2sit to stand with UE in 30seconds Barrera Balance Assessment: Time Up Go (TUG) Timed Up and Go Test (TUG) (Seconds) 22seconds with straight cane Gait Assessment Gait Pattern Wide Based Gait Other Gait Observations bilateral foot drop, hips externally rotated, straight cane 2 Minute Walk Total Distance Walked (feet) 218 2 Minute Walk Gait Speed Score 1.81ft/second
--- NOTE | 2021-09-22 14:44 | OTOPEVAL ---
OCCUPATIONAL THERAPY INITIAL EVALUATION REPORT 09/22/21 Thank you for referring Jesus Ceja to [facility].? The patient is scheduled to be seen for therapy? 2x/week for 4 weeks. Please review, sign, date and return this plan of care NICKO. I agree with and certify that the following plan of care is medically necessary. Referring Physician Date Referring Provider: Jitendra Granger MD *OT Outpatient Evaluation Start: 09/22/21 13:23 Neurological History Hx Cerebrovascular Accident (CVA) Yes: Right sided weakness Hx Transient Ischemic Attacks (TIA) Yes Cardiovascular History Hx Cardiomyopathy Yes Hx Congenital Heart Disease Yes Hx Coronary Stent Yes Hx Myocardial Infarction Yes Respiratory History Hx Asthma Yes: as a child Hx Chronic Obstructive Pulmonary Disease Yes (COPD) Gastrointestinal History Hx Gastrointestinal Disorders No Significant History Genitourinary History Hx Dialysis Yes: tues,thurs,sat Hx Renal Disease Yes Musculoskeletal History Hx Amputation Yes: right great toe Hx Arthritis Yes: right hip Hx Fractures Yes: arm and ankle previously Hx Orthopedic Surgery Yes: plate left leg,plate right wrist,pin and wire left elbow Hematological History Hx Hematological Disorders No Significant History Endocrine History Hx Diabetes Yes Hx Hypothyroidism Yes HEENT History Hx Cataracts Yes Hx Ear Surgery Yes: cataracts Integumentary History Hx Skin Disorders No Significant History Reproductive History Hx Reproductive Disorders No Significant History Psychosocial History Hx Anxiety Yes Hx Depression Yes Pain History Has Past Pain Affected Your Daily Life Yes Anesthesia History Hx Anesthesia Reactions No Significant History Evaluation Information Problem Diagnosis Weakness Subjective Information Patient reports difficulties Query Text:As Reported By Patient/ with lifting objects, Family especially in the kitchen, a gallon of milk is heavy to me States lifting pots/pans is difficult and opening bags and twist off containers with his hands is increasingly difficult. He states this weakness has been slowly getting worse over a long period of time (not acute). Prior Level of Function Activity Level (Last 3 Months) Hand Dominance Left Act
--- NOTE | 2021-09-30 13:17 | PCPTNOTE ---
Patient called & cancelled scheduled appointment this date due to arriving one hour before treatment feeling to fatigue from dialysis asked to cancel scheduled appointment this date and will call about rescheduling for tomorrow.
--- NOTE | 2021-10-02 13:35 | PCPTNOTE ---
Patient did not show up for scheduled appointment this date; arrived 30minutes late to scheduled appointment thinking it started at 13:30 not 13:00. Patient stated for OT treatment.
--- NOTE | 2021-10-10 08:41 | PCOTNOTE ---
Patient called & cancelled scheduled appointment this date due to not feeling well.
--- NOTE | 2021-10-10 10:58 | PCPTNOTE ---
Patient called & cancelled scheduled appointment this date due to being sick.
--- NOTE | 2021-10-14 12:43 | PCPTNOTE ---
Patient called & cancelled scheduled appointment this date due to still being sick.
--- NOTE | 2021-10-16 08:55 | PCOTNOTE ---
Patient called & cancelled scheduled appointment this date due.
--- NOTE | 2021-10-16 14:23 | PCPTNOTE ---
Patient called & cancelled scheduled appointment this date no reason given on voicemail.
--- NOTE | 2021-10-21 13:22 | OTOPEVAL ---
OCCUPATIONAL THERAPY D/C NOTE 10/21/21 Patient presents today for OT re-evaluation following 2 treatment sessions. Attendance was unfortunately poor due to frequent cancellations. He has been instructed in a home program for UE strengthening as well as reproductive endocrinologist/pinch strengthening and fine motor coordination. He verbalizes limited compliance with his home program. Discussed at length the importance of regular strengthening for retirement benefit and he verbalizes understanding. No further skilled OT indicated at this time. Discharging today with patient independent with HEP. Thank you for referring Jesus Ceja to [facility].? Please review, sign, date and return this D/C note NICKO. I agree with and certify that the following plan of care is medically necessary. Referring Physician Date Referring Provider: Jitendra Granger MD Re-Evaluation Information Diagnosis Weakness Subjective Information Patient reports that he has Query Text:As Reported By Patient/ noticed progress with Family functional strength stating that lifting a gallon of milk seems a little easier. He states his left hand is doing better with holding a pen, with writing, and with opening drinks. Reports continued difficulties with opening bags with a normal pinch reproductive endocrinologist. Pain Assessment Timing of Pain Assessment Timing of Pain Assessment Re-assessment Self Report Self Report Pain Level 0 Pain Score Pain Score 0: Self Report Upper Extremity Range of Motion General Upper Extremity Range of Motion Reason Not Measured WNL/Left,WNL/Right Upper Extremity Muscle Strength Testing Scapular/Shoulder Left Shoulder Flexion Strength 4+ Good + Shoulder Extension Strength 4+ Good + Shoulder Abduction Strength 4 Good Shoulder Adduction Strength 4+ Good + Right Shoulder Flexion Strength 4 Good Shoulder Extension Strength 4 Good Shoulder Abduction Strength 4- Good - Shoulder Adduction Strength 4 Good Elbow/Forearm Bilateral Elbow Flexion Strength 4+ Good + Elbow Extension Strength 4- Good - Wrist Strength Bilateral Wrist Flexion Strength 4+ Good + Wrist Extension Strength 4+ Good + Finger Strength Right Index Finger Abduction Strength 3+ Fair + Index Finger Adduction Strength 3+ Fair + Middle Finger Abduction Strength 3+ Fair + Middle Finger Adduction Strength 3+ Fair + Ring Finger Abduction Strength 3+ Fair + Ring Finger Adduction Strength 3+ Fair + Little Finger Abduction Strength 3 Fair Little Finger Adduction Strength 3 Fair Left Index Finger Abduction Strength 3 Fair Index Finger Adduction Strength 3 Fair Middle Finger Abduction Strength 3 Fair Middle Finger Adduction Strength 3 Fair
--- NOTE | 2021-10-21 13:23 | PCPTNOTE ---
Patient arrived to OT re-eval completed treatment, when getting patient for PT stated he rolled his ankle last WednesdayOctober 13 on a piece of board outside with increase pain went to urgent care yesterday for x-ray no fracture or broken bone stated to still have mild pain and wanted to hold on PT this date to get it a few more days of rest. Educated patient on elevating foot for swelling and performing ankle pumps/ABC's with foot for exercise.
--- NOTE | 2021-10-23 13:03 | PTOPEVAL ---
PHYSICAL THERAPY DISCHARGE NOTE Thank you for referring Jesus Ceja to [facility].? Please review, sign, date and return this plan of care NICKO. I agree with and certify that the following plan of care is medically necessary. Referring Physician Date Attending Provider: Jitendra Granger MD Diagnosis Weakness Subjective Information Has a lot of fatigue from Query Text:As Reported By Patient/ dialysis. States that he Family thinks that he will be ok walking his daughter down the aisle. States that he thinks getting around and his balance have improved. Lower Extremity Muscle Strength Testing Ankle Strength Bilateral Ankle Dorsiflexion Strength 4- Good - Balance Assessment Barrera Balance Assessment Comments 1month ago = Time Up Go (TUG) Timed Up and Go Test (TUG) (Seconds) 15 Assistive Devices Cane, Straight Comments 1month ago = 22seconds Gait Assessment Gait Pattern Wide Based Gait Other Gait Observations improved eccentric control of bilateral foot lowering transitioning into foot flat; straight cane 2 Minute Walk Total Distance Walked (feet) 241 2 Minute Walk Gait Speed Score (feet/ 2.00 second) 2 Minute Walk Test Comments 1month ago = 218ft (1.81ft/ second) PT Clinical Summary Jesus has participated in physical therapy to address chronic weakness and mupltiple falls. After 4 visits of physical therapy and HEP he demonstrates improved gait speed from 1.8ft/second to 2.2 ft/second and improved Barrera Balance score from to . He continues to ambulate with a cane, which is quite appropriate. We will d/c from PT to HEP at this time as his dialysis schedule and his fatigue after dialysis limits his ability to participate in scheduled visits. He will continue HEP.
== END 2021-12-08 10:29 | disposition home or self-care (01) ==
LOC: ANHPT 12:30
PROVIDERS: PCP Internal Medicine; Referring Provider Internal Medicine; Visit Provider Internal Medicine
DX: R53.1 Weakness (principal)
CPT/HCPCS: 97110; 97112; 97162; 97165; 97530

== ENCOUNTER 2021-11-18 21:36 | Observation (INO) | payer MEDICARE, SELFPAY ==
[2021-11-18] VITALS (12 sets, daily range): BP systolic 133–155; BP diastolic 75–82; PULSE 65–68; RESP 15–23; TEMP 36.4; O2SAT 96–100
--- NOTE | ~2021-11-18 | XR_ITS ---
EXAMINATION: XR chest 2V Exam Date/Time: 11/18/2021 22:10 CDT HISTORY: Generalized weakness HX CAD,CHF,HTN,CVA,smoker,asthma Comparison: 08/19/2021. RESULT: Lines, tubes, and devices: None. Lungs and pleura: Diffuse reticular pattern, fissure fluid, bilateral costophrenic angle blunting. Cardiomediastinal silhouette: Stable. Other: No acute osseous or upper abdominal finding. IMPRESSION: Mild interstitial edema with small bilateral effusions, possibly mildly loculated on the right. Reviewed, dictated and finalized at location K. IMPRESSION: Mild interstitial edema with small bilateral effusions, possibly mildly loculat ed on the right.
--- NOTE | ~2021-11-18 | CT_ITS ---
EXAMINATION: CT brain wo con DATE: 11/18/2021 23:00 INDICATION: head injury . TECHNIQUE: Computed tomography (CT) of the head was performed without intravenous contrast. The mA wa s adjusted according to patient size. Iterative reconstruction technique was employed. The dose-lengt h product was 605.33 mGy-cm. COMPARISON: 08/19/2021 FINDINGS: No acute intracranial hemorrhage or extra-axial fluid collection. No hydrocephalus, mass, or herniation. No acute ischemic infarct. Unremarkable dural venous sinus attenuation. No acute osseous abnormality. The aerated spaces are clear. Mild atrophy and chronic white matter change. Atherosclerotic intracranial calcification. Bilateral l ens replacements. IMPRESSION: No acute intracranial process. Reviewed, dictated and finalized at location K.
--- NOTE | 2021-11-18 21:39 | ECG_ITS ---
Measurements Intervals Apollo Rate: 65 P: 27 HI: 233 QRS: -66 QRSD: 158 T: 93 QT: 459 QTc: 481 Interpretive Statements SINUS RHYTHM WITH SINUS ARRHYTHMIA WITH FIRST DEGREE AV BLOCK LEFT AXIS DEVIATION RIGHT BUNDLE-BRANCH BLOCK ST ABNORMALITY HIGH LATERAL LEADS CONSIDER MYOCARDIAL ISCHEMIA ABNORMAL ECG COMPARED TO ECG 08/19/2021 10:09:36 FIRST DEGREE AV BLOCK NOW PRESENT RIGHT BUNDLE-BRANCH BLOCK NOW PRESENT Electronically Signed On 11-19-2021 12:28:26 CDT by Karel Zazueta M.D.
[2021-11-18 21:50] LABS: Basophils Percent Auto 0.3 % (0.2-1.2); Eosinophils Absolute Auto 0.1 K/mm3 (0-0.3); Eosinophils Percent Auto 0.5 % (0-4.4); Hematocrit 27.6 % (42.0-52.0); Hemoglobin 8.9 g/dL (14.0-18.0); Immature Granulocyte Absolute 0.05 K/mm3 (0.00-0.031); Immature Granulocyte Percent A 0.4 % (0-0.5); Lymphocytes Absolute Auto 0.77 K/mm3 (0.9-3.2); Lymphocytes Percent Auto 6.8 % (18.3-44.2); Mean Corpuscular HGB Conc 32.2 g/dl (32-36); Mean Corpuscular Hemoglobin 30.9 pg (26-34); Mean Corpuscular Volume 95.8 fl (80-100); Mean Platelet Volume 10.7 fl (7.4-10.4); Monocytes Absolute Auto 0.9 K/mm3 (0.1-0.6); Monocytes Percent Auto 7.7 % (2.6-8.5); Neutrophils Absolute Auto 9.5 K/mm3 (1.3-6.7); Neutrophils Percent Auto 84.3 % (45.5-73.1); Platelet Count Result 130 k/mm3 (150-375); Red Blood Count 2.88 M/mm3 (4.6-6.20); Red Cell Distribution Width 13.7 % (11.5-14.5); White Blood Count 11.3 K/mm3 (4.5-10.0)
[2021-11-18 22:22] LABS: Alanine Aminotransferase 76 U/L (6-50); Alkaline Phosphatase 191 U/L (38-126); Anion Gap 15 mmol/L (8-16); Aspartate Amino Transferase 74 U/L (17-59); Bilirubin,Total 0.9 mg/dL (0.2-1.3); Blood Urea Nitrogen 106 mg/dL (9-20); Calcium 8.3 mg/dL (8.4-10.2); Carbon Dioxide 22 mmol/L (22-30); Chloride 90 mmol/L (98-107); Estimated CRCL calculation 13 ml/min; Estimated Glomerular Filt Rate 10; Glucose 292 mg/dL (65-110); Potassium 8.1 mmol/L (3.4-5.0); Sodium 127 mmol/L (137-145)
[2021-11-18 22:37] LABS: Appearance Urine Clear (Clear); Bilirubin Urine Negative (Negative); Blood Urine 2+ (Negative); Color Urine Yellow (Yellow); Glucose Urine UA 2+ mg/dL (Negative); Ketones Urine Negative (Negative); Leukocyte Esterase Ur Negative LEU/UL (Negative); Nitrate Urine Negative (Negative); Protein Urine 3+ mg/dL (Negative); Urobilinogen Urine 0.2 mg/dL (<2.0); pH Urine 5.5 (5.0-9.0)
[2021-11-18] MEDS: CALCIUM GLUCONATE 1,000 MG/10 ML VIAL 1000 MG IV PUSH (22:38)
[2021-11-18] MEDS: INSULIN HUMAN REGULAR (*BKC) 100 UNITS/ML 10 UNITS IV PUSH (22:38)
[2021-11-18 22:41] LABS: Bacteria Urine Trace /hpf; Squamous Epithelial Cell Urine Rare /hpf (Few); WBC Urine 0-3 /hpf
[2021-11-18 22:42] LABS: Add Urine Microscopic? YES
--- NOTE | 2021-11-18 23:18 | ED.WEAKNESS ---
HPI - Weakness General Chief complaint: Weakness Stated complaint: Weakness Time Seen by Provider: 11/18/21 21:42 History of Present Illness HPI Narrative: Patient is a 55-year-old male who presents ER with whole body weakness. Reports when he exerts himself his muscles get very weak. He has had a fall today where he hit his head but did not lose consciousness. He was seen in general surgery clinic today to have an abscess drainage and they recommend he come to the ER given his weakness but he declined. Patient missed his dialysis today but did have his last dialysis on Wednesday. Reports he was able to finish the whole session. His pecan gatherer is located at [facility]. Denies chest pain or chest pressure. No racing the heart. Patient does make urine. Related Data Home Medications Medication Instructions Recorded Confirmed azelastine 137 mcg (0.1 %) nasal 2 spray intranasal Q12H PRN 08/19/21 11/18/21 spray aerosol Allergy Symptoms clindamycin phosphate 1 % topical 1 applic topical TID 08/19/21 11/18/21 solution dextroamphetamine-amphetamine 20 20 mg PO BID 08/19/21 11/18/21 mg tablet furosemide 80 mg tablet (Lasix) 80 mg PO TID 08/19/21 11/18/21 insulin degludec 100 unit/mL (3 38 unit subcut DAILY 08/19/21 11/18/21 mL) subcutaneous pen (Tresiba FlexTouch U-100 insulin) insulin lispro 100 unit/mL 1 sliding scale dose subcut AC 08/19/21 11/18/21 subcutaneous pen (Humalog KwikPen (U-100) Insulin) levothyroxine 50 mcg tablet 50 mcg PO DAILY 08/19/21 11/18/21 rosuvastatin 40 mg tablet 40 mg PO DAILY 08/19/21 11/18/21 tamsulosin 0.4 mg capsule 0.4 mg PO DAILY 08/19/21 11/18/21 gabapentin 300 mg capsule 300 mg PO DAILY 11/18/21 11/18/21 Allergies Allergy/AdvReac Type Severity Reaction Status Date / Time cantaloupe Allergy Severe ITCHING, Verified 11/18/21 09:32 SWOLLEN LIPS Review of Systems Review of Systems: All systems reviewed & are unremarkable except as noted in HPI and below Constitutional: Constitutional: Denies chills, Reports fatigue, Denies fever(s) and Reports weakness ENT: Denies nasal congestion and Denies sore throat Cardiovascular: Cardiovascular: Denies chest pain, Denies rapid heart rate and Denies radiating jaw, neck or arm pain Respiratory: Respiratory: Denies chest congestion, Denies cough and Denies dyspnea Gastrointestinal: Gastrointestinal: Denies abdominal pain, Denies nausea and Denies vomiting Integumentary/Breasts: Comments: Buttock abscess drained today. Neurologic: Denies syncope, Denies headache(s), Denies focal weakness and Denies numbness PMF Past Medical History Medical History Anxiety and depression Asthma CAD (coronary artery disease) s/p stent placement to ostial LAD and to mid RCA with Impella support Cardiomyopathy Ischemic CHF (congestive heart failure) Diabetes mellitus Dyslipidemia End stage chronic kidney disease Essential (primary) hypertension History of alcoholism History of CVA (cerebrovascular accident) Hx of fracture of pelvis PAD (peripheral artery disease) Moderate to severe on the right lower extremity Surgical History Surgical History H/O nasal septoplasty History of carpal tunnel release History of incision and drainage complex I&D left buttock abscess 4x3x3 cm 08/21/21 Radial fracture Right great toe amputee Status post ORIF of fracture of ankle Family History Family History Other Adopted Social History Social History Social History: Patient lives at home with his . He has 4 children. Three of the children are grown adults. One child has . He still smokes 1 pack per day for the past 40 years. He quit alcohol about 10 years ago but used to be heavy al
[2021-11-18] MEDS: FUROSEMIDE INJ 40 MG/4 ML VIAL IV PUSH (23:21)
[2021-11-18 23:23] LABS: Glucose Point of Care 203 mg/dl (65-105)
[2021-11-18] MEDS: SODIUM BICARBONATE 8.4% 50 MEQ/50 ML SYRINGE IV PUSH (23:23)
[2021-11-18] MEDS: SODIUM ZIRCONIUM CYCLOSILICATE 10 GM POWD.PACK PO (23:30)
[2021-11-19] VITALS (41 sets, daily range): BP systolic 106–173; BP diastolic 61–96; PULSE 62–94; RESP 14–18; TEMP 36–37; O2SAT 94–100
[2021-11-19] MEDS: INSULIN HUMAN REGULAR (*BKC) 100 UNITS/ML 10 UNITS IV PUSH (00:16)
[2021-11-19] MEDS: SODIUM BICARBONATE 8.4% 50 MEQ/50 ML SYRINGE IV PUSH (00:16)
[2021-11-19 01:04] LABS: SARS-CoV-2 RNA PCR Negative
[2021-11-19 01:56] LABS: Anion Gap 13 mmol/L (8-16); Blood Urea Nitrogen 108 mg/dL (9-20); Calcium 8.8 mg/dL (8.4-10.2); Carbon Dioxide 24 mmol/L (22-30); Chloride 91 mmol/L (98-107); Estimated CRCL calculation 12 ml/min; Estimated Glomerular Filt Rate 10; Glucose 52 mg/dL (65-110); Potassium 6.6 mmol/L (3.4-5.0); Sodium 128 mmol/L (137-145)
[2021-11-19] MEDS: DEXTROSE 50% 25 GM/50 ML SYRINGE IV PUSH (02:05)
[2021-11-19 02:41] LABS: Glucose Point of Care 131 mg/dl (65-105)
[2021-11-19 03:48] LABS: Glucose Point of Care 115 mg/dl (65-105)
--- NOTE | 2021-11-19 04:39 | ADMGEN ---
This patient, Jesus Ceja, was admitted to IMU Room 214-01. Patient/family oriented to hospital policies and general routines including ID bracelet, bed and alarms, visiting hours, pain management, procedures, bathroom and other care routines, personal items, smoking policy, room service/diet, and visiting hours. Information on how to activate the Rapid Response Team has been discussed. Patient/Family are encouraged to report perceived risks to care and to ask questions if they do not understand what they are told or what they should do.
[2021-11-19] MEDS: SODIUM ZIRCONIUM CYCLOSILICATE 10 GM POWD.PACK PO ×2 (06:23→16:47)
[2021-11-19 09:10] LABS: Glucose Point of Care 124 mg/dl (65-105)
--- NOTE | 2021-11-19 11:03 | PCOTNOTE ---
Attempted OT evaluation, patient is currently off the unit for dialysis, will follow and attempt at later time.
[2021-11-19 11:06] LABS: Anion Gap 17 mmol/L (8-16); Blood Urea Nitrogen 110 mg/dL (9-20); Calcium 8.5 mg/dL (8.4-10.2); Carbon Dioxide 22 mmol/L (22-30); Chloride 89 mmol/L (98-107); Estimated CRCL calculation 12 ml/min; Estimated Glomerular Filt Rate 10; Glucose 117 mg/dL (65-110); Potassium 6.4 mmol/L (3.4-5.0); Sodium 128 mmol/L (137-145)
[2021-11-19 11:26] LABS: Hepatitis B Surface Antigen Negative (Negative)
--- NOTE | 2021-11-19 11:42 | PM.CNGS ---
Assessment and Plan Assessment and plan (1) Abscess of right buttock: Code(s): L02.31 - Cutaneous abscess of buttock Status: Acute Assessment and Plan: This is the reason for our consultation. He has a right buttock abscess s/p I&D on 11/18/21 in our office. This appears to be adequately drained. Would recommend to continue with packing dressing changes daily with 1/4 iodoform gauze. We will sign off at this point. Follow-up in our office with Dr. Quintero in a few weeks for a wound check. Let us know if there are any surgical questions in the future. (2) Acute hyperkalemia: Code(s): E87.5 - Hyperkalemia Status: Acute (3) Weakness generalized: Code(s): R53.1 - Weakness Status: Acute (4) End stage chronic kidney disease: Code(s): N18.6 - End stage renal disease Status: Acute Assessment and Plan: Patient is on hemodialysis three times per week. Nephrology following and patient was dialyzed today. (5) CAD (coronary artery disease): Code(s): I25.10 - Atherosclerotic heart disease of [place] coronary artery without angina pectoris Status: Acute (6) Cardiomyopathy: Code(s): I42.9 - Cardiomyopathy, unspecified Status: Acute (7) CHF (congestive heart failure): Code(s): I50.9 - Heart failure, unspecified Status: Acute (8) PAD (peripheral artery disease): Code(s): I73.9 - Peripheral vascular disease, unspecified Status: Acute (9) Cigarette smoker: Code(s): F17.210 - Nicotine dependence, cigarettes, uncomplicated Status: Acute Assessment and Plan: Encourage cessation. F/u with PCP for management. Plan I have discussed the patient's case and plan of care with Dr. Rose. History of Present Illness Consult details Consult date: 11/19/21 Reason for consult: wound care (Right buttock abscess status post outpatient I and D on 11/18/2021) Requesting physician: Junie Kerns MD Narrative: This is a 55-year-old man with a history of ESRD on hemodialysis, coronary artery disease, previous CVA, ischemic cardiomyopathy, and multiple other medical problems, who I am familiar with after seeing the patient as an outpatient yesterday in our office for a right buttock abscess. The patient had previously had an I&D of a left buttock abscess by Dr. Quintero in August of 2021. Yesterday, he underwent I&D and right buttock abscess. During his office visit, he was brought in via wheelchair and complaining of progressive generalized weakness over the past few days. He was so weak he missed dialysis yesterday and had not been able to stand on his own after showering in the morning. We actually had to use two person assist to get him onto the exam table, which the patient stated was not normal for him. I strongly recommend going to the ER for evaluation straight from the office, but the patient declined. He exited via wheelchair with his and I sent a script for Augmentin to the pharmacy. He apparently became more weak in the evening and was unable to even sisal picker his phone, therefore his called EMS even though the patient himself was still not wanting to go to the ER. In evaluation, he was found to have a potassium of 8.1, which has since been treated and is coming down. CT scan head negative. WBC count 11,000. He was admitted to the Hospitalist. Nephrology was consulted and he received hemodialysis today. Our service has been consulted for evaluation of the right buttock abscess given his recent I&D. He reports that [facility] didn't have the medication when they went to pick it up, so he has not started the Augmentin. He reports his buttock pain is much better today and he is no longer having as much pressure in that area. Much more comfortable with sitting. Review of Systems Review of Systems: All systems reviewed & are unremarkable except as noted in HPI and below PMFSH Past Medical History Medical History (Reviewed 11/19/21 @ 14:27 by
--- NOTE | 2021-11-19 12:00 | PCPTNOTE ---
Attempted PT evaluation, patient is currently off the unit for dialysis, will follow and attempt at later time.
--- NOTE | 2021-11-19 12:46 | PM.CNNEP ---
Assessment and Plan Additional Plan 1. Jesus has hyperkalemia. He will of received 3 doses of Lokelma after this next dose. I think probably just eats food that has potassium in it, but just to make sure that this there is not an endogenous source I will check a haptoglobin, stool guaiac and CPK. we discussed how important it is to take his Lokelma at home and to watch his diet. He talks with the dietitian at the dialysis unit frequently. Consider 4 days a week dialysis if these measures do not help, but his outpatient physician advisor does not come to this hospital so he will talk with him about that. 2. The patient has end-stage renal disease. He is due for dialysis today and will get another treatment tomorrow. 3. The patient has anemia of chronic kidney disease. He will get Epogen. Can check iron levels as well. 4.He has renal osteodystrophy. Will check a phosphorus level in the morning. History of Present Illness Reason for Consult Consult date: 11/19/21 Chief Complaint Chief complaint: Hyperkalemia,Uremia History of Present Illness Narrative: Jesus is a very pleasant 55-year-old gentleman who has multiple medical problems including end-stage renal disease on dialysis 3 times a week, recurrent hyperkalemia, on locale my at home however he does not take it, coronary disease status post stents, ischemic cardiomyopathy, diabetes, hyperlipidemia, hypertension, alcoholism in the past, stroke, peripheral arterial disease, and pilonidal cyst status post drainage yesterday. The patient last went to dialysis on Wednesday. He had a pretty good treatment and got to his dry weight. He developed a a mass with pain in the presacral area which he felt was another pilonidal cyst. This has happened before. He called the surgeon who met him yesterday and did an incision and drainage. He was placed on Augmentin 500 mg twice a day. The patient says that he has been weak. He started to get weak even before Saturdays treatment but has gotten progressively weaker over the last 3 or 4 days. Last night his said that he could hardly even bulk picker his cell phone. He himself did not want to go to the ER but his called 911 and brought him. When checked out his potassium was 8.1. He was given locale a and other measures to bring the potassium down. This morning the potassium was down to 6.6. When I interviewed him this morning and he still feels like he is weak. I asked the nurses to repeat a BMP and give Lokelma as soon as the blood is drawn. I called the dialysis nurse in as well but I do not know what time she is going to come. Patient denies aches or pains. He has no bloody or black stools. Review of Systems Constitutional: Constitutional: Reports no additional constitutional complaints Eyes: Eyes: Reports no additional eye complaints ENT: Reports system reviewed and no additional complaints, except as documented Cardiovascular: Cardiovascular: Reports no additional cardiovascular complaints Respiratory: Respiratory: Reports no additional respiratory complaints Gastrointestinal: Gastrointestinal: Reports no additional gastrointestinal complaints Genitourinary: Genitourinary: Reports no additional male genitourinary complaints Musculoskeletal: Musculoskeletal: Reports no additional musculoskeletal complaints Integumentary/Breasts: Skin/Breast: Reports system reviewed and no additional complaints, except as docu Neurologic: Reports system reviewed and no additional complaints, except as documented Psychiatric: Psychiatric: Reports no additional psychiatric complaints Endocrine: Endocrine: Reports no additional endocrine complaints [facility] Past Medical History Medical History Anxiety and depression Asthma CAD (coronary artery disease) s/p stent placement to ostial LAD and to mid RCA with Impella support Cardiomyopathy Ischemic CHF (congestive heart failu
[2021-11-19] MEDS: METOPROLOL SUCCINATE EXT REL 25 MG TABCR PO (14:47)
[2021-11-19] MEDS: TAMSULOSIN HCL 0.4 MG CAPSULE PO (14:47)
[2021-11-19] MEDS: ASPIRIN 81 MG CHEWABLE TABLET PO (14:47)
[2021-11-19] MEDS: ROSUVASTATIN 10 MG TABLET 40 MG PO (14:48)
[2021-11-19] MEDS: FUROSEMIDE 80 MG TABLET PO ×2 (14:48→18:54)
[2021-11-19] MEDS: GABAPENTIN 300 MG CAPSULE PO (14:48)
--- NOTE | 2021-11-19 15:40 | P.PNCROSS_ITS ---
Event Note Event Note Event Note: Patient is on dialysis. He is tolerating it well. in the room. We dis cussed high potassium and ways to help keep it down. He was seen at 12:20 p.m.
[2021-11-19 17:00] LABS: Glucose Point of Care 269 mg/dl (65-105)
[2021-11-19 17:20] LABS: Albumin Level 3.6 g/dL (3.5-5.1); Anion Gap 9 mmol/L (8-16); Blood Urea Nitrogen 52 mg/dL (9-20); Calcium 7.9 mg/dL (8.4-10.2); Carbon Dioxide 31 mmol/L (22-30); Chloride 89 mmol/L (98-107); Estimated CRCL calculation 23 ml/min; Estimated Glomerular Filt Rate 21; Glucose 295 mg/dL (65-110); Phosphorus 4.8 mg/dL (2.5-4.5); Potassium 4.7 mmol/L (3.4-5.0); Sodium 129 mmol/L (137-145)
--- NOTE | 2021-11-19 18:23 | PM.IMHP ---
H&P: HPI History of Present Illness Date/Time: 11/19/21 18:23 Chief Complaint: generalized weakness Narrative: 11/19/21 18:12 ED-HPI Narrative: Patient is a 55-year-old male who presents ER with whole body weakness.? Reports when he exerts himself his muscles get very weak.? He has had a fall today where he hit his head but did not lose consciousness.? He was seen in general surgery clinic today to have an abscess drainage and they recommend he come to the ER given his weakness but he declined.? Patient missed his dialysis today but did have his last dialysis on Wednesday.? Reports he was able to finish the whole session.? His chipper feeder is located at [facility].? Denies chest pain or chest pressure.? No racing the heart.? Patient does make urine. patient is a 55-year-old male with history of end-stage renal disease on hemodialysis Wednesday and Wednesday patient had a last hemodialysis on Wednesday he presented emergency department with complaint generalized weakness difficulty with ambulating upon arrival patient potassium was 6.4 patient was given Lokelma and had a hemodialysis repeat potassium level 4.7, patient seen by Nephrology recommended patient may benefit getting hemodialysis 4 times a week, to further evaluate stool hemoglobin and CK levels ordered, will continue to monitor will have a PT OT evaluate the patient and further recommendation to follow. patient admitted as observation status. Review of Systems Review of Systems: as per HPI [facility] Past Medical History Medical History Anxiety and depression Asthma CAD (coronary artery disease) s/p stent placement to ostial LAD and to mid RCA with Impella support Cardiomyopathy Ischemic CHF (congestive heart failure) Diabetes mellitus Dyslipidemia End stage chronic kidney disease Essential (primary) hypertension History of alcoholism History of CVA (cerebrovascular accident) Hx of fracture of pelvis PAD (peripheral artery disease) Moderate to severe on the right lower extremity Surgical History Surgical History H/O nasal septoplasty History of carpal tunnel release History of incision and drainage complex I&D left buttock abscess 4x3x3 cm 08/21/21 Radial fracture Right great toe amputee Status post ORIF of fracture of ankle Family History Family History Other Adopted Social History Social History Social History: Patient lives at home with his . He has 4 children. Three of the children are grown adults. One child has . He still smokes 1 pack per day for the past 40 years. He quit alcohol about 10 years ago but used to be heavy alcohol consumer. He denies drug use. He is a full code. He nominates his to be the individual would make medical decisions for him if he is unable. Smoking packs per day: 1 Smoking cigarettes per day: 20.0 Years smoked: 40 Smoking pack-years: 40.00 Smoking status: Current every day smoker Tobacco type: cigarettes Second hand tobacco smoke exposure: No Alcohol intake: former Substance use: never Gender identity (if verbalized by the patient): Male Spiritual care concerns: No Meds Home Medications and Allergies Home Medications Medication Instructions Recorded Confirmed Type azelastine 137 mcg (0.1 %) nasal 2 spray intranasal Q12H PRN 08/19/21 11/18/21 History spray aerosol Allergy Symptoms dextroamphetamine-amphetamine 20 20 mg PO BID 08/19/21 11/18/21 History mg tablet furosemide 80 mg tablet (Lasix) 80 mg PO TID 08/19/21 11/18/21 History insulin degludec 100 unit/mL (3 38 unit subcut DAILY 08/19/21 11/18/21 History mL) subcutaneous pen (Tresiba FlexTouch U-100 insulin) insulin lispro 100 unit/mL 1 sliding scale dose sub
[2021-11-19] MEDS: INSULIN ASPART (*BKC) 100 UNITS/ML SUB-Q (18:56)
[2021-11-19] MEDS: HEPARIN SODIUM 5,000 UNITS/ML VIAL 5000 UNITS SUB-Q (20:23)
[2021-11-19 20:38] LABS: Glucose Point of Care > 500 mg/dl (65-105)
[2021-11-19] MEDS: NICOTINE (*PBKC) 21 MG PATCH 1 PATCH TRANSDERM (21:36)
[2021-11-19] MEDS: INSULIN ASPART (*BKC) 100 UNITS/ML 8 UNITS SUB-Q (21:36)
[2021-11-19 21:52] LABS: Iron 32 ug/dL (49-181)
[2021-11-19 21:53] LABS: Creatine Kinase 146 U/L (55-170)
[2021-11-19 22:04] LABS: Percent Iron Saturation 11 % (20-50)
[2021-11-19 23:29] LABS: Glucose Point of Care 463 mg/dl (65-105)
[2021-11-20] VITALS (23 sets, daily range): BP systolic 105–178; BP diastolic 61–84; PULSE 71–88; RESP 16–20; TEMP 35.8–37; O2SAT 97–100
[2021-11-20] MEDS: INSULIN ASPART (*BKC) 100 UNITS/ML 6 UNITS SUB-Q (00:28)
[2021-11-20 01:18] LABS: Hepatitis B Surface Anti Res Negative
[2021-11-20 02:56] LABS: Glucose Point of Care 235 mg/dl (65-105)
[2021-11-20 06:14] LABS: Hematocrit 25.9 % (42.0-52.0); Hemoglobin 8.2 g/dL (14.0-18.0); Mean Corpuscular HGB Conc 31.7 g/dl (32-36); Mean Corpuscular Hemoglobin 31.2 pg (26-34); Mean Corpuscular Volume 98.5 fl (80-100); Platelet Count Result 127 k/mm3 (150-375); Red Blood Count 2.63 M/mm3 (4.6-6.20); Red Cell Distribution Width 14.5 % (11.5-14.5); White Blood Count 9.4 K/mm3 (4.5-10.0)
[2021-11-20 06:26] LABS: Albumin Level 3.3 g/dL (3.5-5.1); Anion Gap 9 mmol/L (8-16); Blood Urea Nitrogen 57 mg/dL (9-20); Calcium 7.3 mg/dL (8.4-10.2); Carbon Dioxide 33 mmol/L (22-30); Chloride 90 mmol/L (98-107); Estimated CRCL calculation 17 ml/min; Estimated Glomerular Filt Rate 15; Glucose 151 mg/dL (65-110); Potassium 4.7 mmol/L (3.4-5.0); Sodium 132 mmol/L (137-145)
[2021-11-20] MEDS: LEVOTHYROXINE SODIUM 50 MCG TABLET PO (06:52)
[2021-11-20 07:24] LABS: Glucose Point of Care 137 mg/dl (65-105)
[2021-11-20] MEDS: FUROSEMIDE 80 MG TABLET PO ×3 (09:08→18:01)
[2021-11-20] MEDS: ASPIRIN 81 MG CHEWABLE TABLET PO (09:08)
[2021-11-20] MEDS: NICOTINE (*PBKC) 21 MG PATCH 1 PATCH TRANSDERM (09:08)
[2021-11-20] MEDS: ROSUVASTATIN 10 MG TABLET 40 MG PO (09:08)
[2021-11-20] MEDS: GABAPENTIN 300 MG CAPSULE PO (09:08)
[2021-11-20] MEDS: INSULIN GLARGINE (*BKC) 100 UNITS/ML 38 UNITS SUB-Q (09:08)
[2021-11-20] MEDS: HEPARIN SODIUM 5,000 UNITS/ML VIAL 5000 UNITS SUB-Q ×2 (09:09→21:18)
[2021-11-20] MEDS: TAMSULOSIN HCL 0.4 MG CAPSULE PO (09:09)
[2021-11-20] MEDS: METOPROLOL SUCCINATE EXT REL 25 MG TABCR PO (09:09)
[2021-11-20] MEDS: EPOETIN ALFA-EPBX 10,000 UNITS/ML VIAL 10000 UNITS IV PUSH (10:35)
[2021-11-20 12:43] LABS: Glucose Point of Care 234 mg/dl (65-105)
[2021-11-20 13:36] LABS: Glucose Point of Care 337 mg/dl (65-105)
[2021-11-20] MEDS: INSULIN ASPART (*BKC) 100 UNITS/ML SUB-Q ×2 (13:42→18:01)
--- NOTE | 2021-11-20 15:03 | PM.IMPN ---
Progress Note: A&P Assessment and Plan (1) Acute hyperkalemia: Code(s): E87.5 - Hyperkalemia Status: Acute Assessment and Plan: ED-[facility] Narrative: Patient is a 55-year-old male who presents ER with whole body weakness.? Reports when he exerts himself his muscles get very weak.? He has had a fall today where he hit his head but did not lose consciousness.? He was seen in general surgery clinic today to have an abscess drainage and they recommend he come to the ER given his weakness but he declined.? Patient missed his dialysis today but did have his last dialysis on Wednesday.? Reports he was able to finish the whole session.? His sewer pipe layer is located at [facility].? Denies chest pain or chest pressure.? No racing the heart.? Patient does make urine. patient is a 55-year-old male with history of end-stage renal disease on hemodialysis Wednesday and Wednesday patient had a last hemodialysis on Wednesday he presented emergency department with complaint generalized weakness difficulty with ambulating upon arrival patient potassium was 6.4 patient was given Lokelma and had a hemodialysis repeat potassium level 4.7, patient seen by Nephrology recommended patient may benefit getting hemodialysis 4 times a week, to further evaluate stool hemoglobin and CK levels ordered, will continue to monitor will have a PT OT evaluate the patient and further recommendation to follow. 11/20/2021 interval history: patient is a 55-year-old male with history of end-stage renal disease on hemodialysis Wednesday and Wednesday patient had a last hemodialysis on Wednesday 11/15, on 11/19 he presented emergency department with complaint generalized weakness difficulty with ambulating upon arrival patient potassium was 6.4 patient was given Lokelma and had a hemodialysis repeat potassium level 4.7, patient seen by Nephrology recommended patient may benefit getting hemodialysis 4 times a week, to further evaluate stool hemoglobin and CK levels ordered, patient CK levels are normal, he is feeling much better today not as tired or fatigued, patient will be seen by Nephrology and further recommendation to follow, will continue to monitor will have a PT OT evaluate the patient and further recommendation to follow. (2) Abscess of right buttock: Code(s): L02.31 - Cutaneous abscess of buttock Status: Acute Assessment and Plan: patient with a pilonidal cyst status post I&D on 11/18, seen by surgery service the wound is healing. (3) Essential (primary) hypertension: Code(s): I10 - Essential (primary) hypertension Status: Acute Assessment and Plan: will continue home regimen and monitor (4) End stage chronic kidney disease: Code(s): N18.6 - End stage renal disease Status: Acute Assessment and Plan: patient with history of end-stage renal disease on hemodialysis Wednesday and Wednesday presented with hyperkalemia as patient had missed hemodialysis on Wednesday, seen by sewer pipe layer and further recommendation to follow (5) Weakness: Code(s): R53.1 - Weakness Status: Acute Assessment and Plan: etiology uncertain most likely secondary to hyperkalemia CK level is ordered and will monitor Subjective Date/time seen: 11/20/21 15:03 ED-HPI Narrative: Patient is a 55-year-old male who presents ER with whole body weakness.? Reports when he exerts himself his muscles get very weak.? He has had a fall today where he hit his head but did not lose consciousness.? He was seen in general surgery clinic today to have an abscess drainage and they recommend he come to the ER given his weakness but he declined.? Patient missed his dialysis today but did have his last dialysis on Wednesday.? Reports he was able to finish the whole session.? His sewer pipe layer is located at [facility].? Denies chest pain or chest pressure.? No racing the heart.? Patient does make urine.
--- NOTE | 2021-11-20 15:12 | PM.PNNEP ---
Progress Note: A&P Additional Plan 1. Jesus had hyperkalemia. He received several doses of Lokelma and also dialysis yesterday and today. Potassium is doing better now. It was 4.7 this morning before he had his dialysis today. CPK is normal. Most likely this is dietary indiscretion. He has Lokelma at home which he is supposed to take every day but has not done that. I told that if he does not start doing this who end up back in the hospital again or some point if the potassium is bad enough he may not make it to the hospital. His understands this as well. He will talk to his primary grain drier about this and other possible measures including for treatments per week, etc. 2. The patient has end-stage renal disease. He is due for dialysis today and will get another treatment tomorrow. 3. The patient has anemia of chronic kidney disease. He will get Epogen. T sat is low. Will give iron if he is in the hospital. 4.He has renal osteodystrophy. Will check a phosphorus level in the morning. Okay for discharge from the kidney standpoint. Subjective Date/time seen: 11/20/21 15:12 Interval history: Patient feels better today. Sitting up at the side of the bed and eating lunch. He just had his dialysis. He is now back on schedule. Review of Systems Cardiovascular: Cardiovascular: Reports no additional cardiovascular complaints Respiratory: Respiratory: Reports no additional respiratory complaints Gastrointestinal: Gastrointestinal: Reports no additional gastrointestinal complaints Genitourinary: Genitourinary: Reports no additional male genitourinary complaints Exam Narrative: WDWN in NAD skin no rash head ncat lungs clear cor reg no rub abd BS+ nontender and soft ext no edema. Objective Data Vital Signs Vital Signs: Vital Signs - 24 hr 11/19/21 16:00 11/19/21 16:00 11/19/21 16:00 Temperature 36.8 C Pulse Rate 85 86 Respiratory Rate 18 Blood Pressure 150/73 H Pulse Oximetry 95 Oxygen Delivery Room Air 11/19/21 18:00 11/19/21 19:53 11/19/21 20:00 Temperature 36.2 C L Pulse Rate 85 86 Respiratory Rate 18 Blood Pressure 150/70 H Pulse Oximetry 97 Oxygen Delivery Room Air 11/19/21 20:00 11/19/21 22:00 11/19/21 23:50 Temperature 36.4 C Pulse Rate 85 83 83 Respiratory Rate 16 Blood Pressure 153/74 H Pulse Oximetry 97 Oxygen Delivery 11/20/21 00:00 11/20/21 00:00 11/20/21 02:00 Temperature Pulse Rate 79 73 Respiratory Rate Blood Pressure Pulse Oximetry 97 Oxygen Delivery Room Air 11/20/21 04:00 11/20/21 04:00 11/20/21 06:00 Temperature Pulse Rate 78 71 Respiratory Rate Blood Pressure Pulse Oximetry 100 Oxygen Delivery Room Air 11/20/21 06:00 11/20/21 07:48 11/20/21 07:30 Temperature 36.4 C 36.6 C Pulse Rate 83 71 Respiratory Rate 18 16 Blood Pressure 150/77 H 130/61 Pulse Oximetry 100 99 Oxygen Delivery Room Air 11/20/21 09:09 11/20/21 09:39 11/20/21 09:25 Temperature 36.4 C L Pulse Rate 71 71 71 Respiratory Rate 16 Blood Pressure 139/79 142/82 H Pulse Oximetry Oxygen Delivery 11/20/21 10:00 11/20/21 10:20 11/20/21 10:40 Temperature Pulse Rate 71 73 74 Respiratory Rate Blood Pressure 131/66 129/73 137/77 Pulse Oximetry Oxygen Delivery 11/20/21 11:00 11/20/21 11:20 11/20/21 11:40 Temperature Pulse Rate 75 75 74 Respiratory Rate Blood Pressure 130/65 145/70 H 134/68 Pulse Oximetry Oxygen Delivery 11/20/21 12:00 11/20/21 08:00 11/20/21 12:20 Temperature Pulse Rate 73 74 Respiratory Rate Blood Pressure 127/63 105/63 Pulse Oximetry Oxygen Delivery Room Air 11/20/21 12:40 11/20/21 13:00 11/20/21 13:10 Temperature Pulse Rate 76 73 75 Respiratory Rate Blood Pressure 116/66 114/66 127/63 Pulse Oximetry Oxygen Delivery 11/20/21 13:22 Temperature 36.6 C Pulse Ra
[2021-11-20 15:50] LABS: Glucose Point of Care 350 mg/dl (65-105)
[2021-11-20 17:56] LABS: Glucose Point of Care 270 mg/dl (65-105)
--- NOTE | 2021-11-20 18:02 | PC.NURSE ---
This patient, Jesus Ceja, was transferred to [facility] on 11/20/21 at 1724. Personal belongings sent with patient. Report given to Isabelle FRAGOSO. Appropriate documentation sent with patient.
[2021-11-20] MEDS: AZELASTINE HCL NASAL 0.1% 137 MCG/SPR 30 ML BTL 2 SPRAY NASAL (21:24)
[2021-11-21 04:54] VITALS: BP 159/71; PULSE 90; RESP 18; TEMP 36.6; O2SAT 96
[2021-11-21 05:51] LABS: Hematocrit 27.8 % (42.0-52.0); Hemoglobin 8.6 g/dL (14.0-18.0); Mean Corpuscular HGB Conc 30.9 g/dl (32-36); Mean Corpuscular Hemoglobin 30.5 pg (26-34); Mean Corpuscular Volume 98.6 fl (80-100); Mean Platelet Volume 10.6 fl (7.4-10.4); Platelet Count Result 142 k/mm3 (150-375); Red Blood Count 2.82 M/mm3 (4.6-6.20); Red Cell Distribution Width 14.1 % (11.5-14.5); White Blood Count 7.2 K/mm3 (4.5-10.0)
[2021-11-21 06:25] LABS: Albumin Level 3.2 g/dL (3.5-5.1); Anion Gap 8 mmol/L (8-16); Blood Urea Nitrogen 36 mg/dL (9-20); Carbon Dioxide 33 mmol/L (22-30); Chloride 89 mmol/L (98-107); Estimated CRCL calculation 21 ml/min; Estimated Glomerular Filt Rate 18; Glucose 562 mg/dL (65-110); Phosphorus 4.8 mg/dL (2.5-4.5); Potassium 4.1 mmol/L (3.4-5.0); Sodium 130 mmol/L (137-145)
[2021-11-21] MEDS: INSULIN ASPART (*BKC) 100 UNITS/ML 15 UNITS SUB-Q (06:34)
[2021-11-21] MEDS: LEVOTHYROXINE SODIUM 50 MCG TABLET PO (06:35)
[2021-11-21 08:00] VITALS: BP 152/71; PULSE 85; RESP 18; TEMP 36.7; O2SAT 100
[2021-11-21] MEDS: ASPIRIN 81 MG CHEWABLE TABLET PO (08:43)
[2021-11-21] MEDS: FUROSEMIDE 80 MG TABLET PO ×2 (08:43→13:23)
[2021-11-21 08:44] VITALS: PULSE 80
[2021-11-21] MEDS: GABAPENTIN 300 MG CAPSULE PO (08:44)
[2021-11-21] MEDS: METOPROLOL SUCCINATE EXT REL 25 MG TABCR PO (08:44)
[2021-11-21] MEDS: ROSUVASTATIN 10 MG TABLET 40 MG PO (08:45)
[2021-11-21] MEDS: TAMSULOSIN HCL 0.4 MG CAPSULE PO (08:46)
[2021-11-21] MEDS: INSULIN GLARGINE (*BKC) 100 UNITS/ML 38 UNITS SUB-Q (08:47)
[2021-11-21] MEDS: HEPARIN SODIUM 5,000 UNITS/ML VIAL 5000 UNITS SUB-Q (08:47)
[2021-11-21 08:50] LABS: Glucose Point of Care 423 mg/dl (65-105)
[2021-11-21] MEDS: NICOTINE (*PBKC) 21 MG PATCH 1 PATCH TRANSDERM (08:53)
[2021-11-21] MEDS: INSULIN ASPART (*BKC) 100 UNITS/ML SUB-Q ×2 (09:30→12:33)
--- NOTE | 2021-11-21 09:30 | PM.PNNEP ---
Progress Note: A&P Additional Plan 1. Jesus had hyperkalemia. He received several doses of Lokelma and also dialysis yesterday and today. Potassium is doing better now. potassium 4.1 today. His potassium is normal in the hospital once we get it down. I suspect the dietary indiscretion is the most likely reason for the hyperkalemia. He has Lokelma at home which he is supposed to take every day but has not done that. I told that if he does not start doing this who end up back in the hospital again or some point if the potassium is bad enough he may not make it to the hospital. His understands this as well. He will talk to his primary label coder about this and other possible measures including for treatments per week, etc. Okay for discharge at any time. 2. The patient has end-stage renal disease. He is due for dialysis today and will get another treatment tomorrow. 3. The patient has anemia of chronic kidney disease. He will get Epogen. T sat is low. Will give iron if he is in the hospital. 4.He has renal osteodystrophy. Will check a phosphorus level in the morning. 5. Sugar was high this morning. He is on insulin plus sliding scale. Okay for discharge from the kidney standpoint. Subjective Date/time seen: 11/21/21 09:30 Interval history: Patient feels better today. eating breakfast. No shortness of breath. Exam Narrative: WDWN in NAD skin no rash or subcu nodules head ncat lungs clear bilaterally cor reg no rub or gallop abd BS+ nontender and soft ext no edema. Objective Data Vital Signs Vital Signs: Vital Signs - 24 hr 11/20/21 09:39 11/20/21 10:00 11/20/21 10:20 Temperature Pulse Rate 71 71 73 Respiratory Rate Blood Pressure 139/79 131/66 129/73 Pulse Oximetry Oxygen Delivery 11/20/21 10:40 11/20/21 11:00 11/20/21 11:20 Temperature Pulse Rate 74 75 75 Respiratory Rate Blood Pressure 137/77 130/65 145/70 H Pulse Oximetry Oxygen Delivery 11/20/21 11:40 11/20/21 12:00 11/20/21 12:20 Temperature Pulse Rate 74 73 74 Respiratory Rate Blood Pressure 134/68 127/63 105/63 Pulse Oximetry Oxygen Delivery 11/20/21 12:40 11/20/21 13:00 11/20/21 13:10 Temperature Pulse Rate 76 73 75 Respiratory Rate Blood Pressure 116/66 114/66 127/63 Pulse Oximetry Oxygen Delivery 11/20/21 13:22 11/20/21 16:00 11/20/21 20:12 Temperature 36.6 C 36.7 C 36.1 C L Pulse Rate 75 77 87 Respiratory Rate 16 20 20 Blood Pressure 127/65 165/69 H 175/84 H Pulse Oximetry 98 99 Oxygen Delivery 11/20/21 20:00 11/20/21 23:59 11/21/21 04:54 Temperature 35.9 C L 36.6 C Pulse Rate 88 90 Respiratory Rate 20 18 Blood Pressure 178/78 H 159/71 H Pulse Oximetry 100 96 Oxygen Delivery Room Air 11/21/21 08:44 Temperature Pulse Rate 80 Respiratory Rate Blood Pressure Pulse Oximetry Oxygen Delivery Intake/Output Intake/Output: Intake & Output 11/18/21 11/19/21 11/20/21 11/21/21 23:59 23:59 23:59 23:59 Intake Total 1040 920 390 Output Total 150 3000 79 Balance -150 -1960 841 390 Meds/Results Medications: Active Medications Generic Name Dose Route Start Last Admin Trade Name Demarq PRN Reason Stop Dose Admin Acetaminophen 650 mg 11/19/21 02:40 Acetaminophen 325 Mg Tablet PO Q4H PRN Mild Pain (1-3) or Fever Hydrocodone Bitart/Acetaminophen 1 tab 11/19/21 02:40 Hydrocodone/Acetaminophen (*Crx) 5-325 Mg Tablet PO Q4H PRN Pain Rated 7-10 Albuterol 2 puff 11/19/21 09:28 Albuterol Sulfate (*Sp) Aerosol 1 Puff INHALATION Q4-6H PRN shortness of breath or wheezing Aspirin 81 mg 11/19/21 08:00 11/21/21 08:43 Aspirin 81 Mg Chewable Tablet PO 81 mg DAILY@0800 [facility] Administration Azelastine HCl 2 spray 11/19/21 09:28 11/20/21 21:24 Azelastine Hcl Nasal 0.1% 137 Mcg/Spr 30 Ml Btl NASAL 2 spray Q12H PRN Administrat
[2021-11-21] MEDS: AZELASTINE HCL NASAL 0.1% 137 MCG/SPR 30 ML BTL 2 SPRAY NASAL (09:32)
--- NOTE | 2021-11-21 11:57 | PM.DS ---
DS: Admitting Diagnosis Discharge Date 11/21/2021 Admitting Diagnosis whole-body weakness DS: Discharge Diagnosis Discharge Diagnosis (1) Acute hyperkalemia: Code(s): E87.5 - Hyperkalemia Status: Acute Assessment and Plan: ED-[facility] Narrative: Patient is a 55-year-old male who presents ER with whole body weakness.? Reports when he exerts himself his muscles get very weak.? He has had a fall today where he hit his head but did not lose consciousness.? He was seen in general surgery clinic today to have an abscess drainage and they recommend he come to the ER given his weakness but he declined.? Patient missed his dialysis today but did have his last dialysis on Wednesday.? Reports he was able to finish the whole session.? 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 Denies chest pain or chest pressure.? No racing the heart.? Patient does make urine. patient is a 55-year-old male with history of end-stage renal disease on hemodialysis Wednesday and Wednesday patient had a last hemodialysis on Wednesday he presented emergency department with complaint generalized weakness difficulty with ambulating upon arrival patient potassium was 6.4 patient was given Lokelma and had a hemodialysis repeat potassium level 4.7, patient seen by Nephrology recommended patient may benefit getting hemodialysis 4 times a week, to further evaluate stool hemoglobin and CK levels ordered, will continue to monitor will have a PT OT evaluate the patient and further recommendation to follow. 11/20/2021 interval history: patient is a 55-year-old male with history of end-stage renal disease on hemodialysis Wednesday and Wednesday patient had a last hemodialysis on Wednesday 11/15, on 11/19 he presented emergency department with complaint generalized weakness difficulty with ambulating upon arrival patient potassium was 6.4 patient was given Lokelma and had a hemodialysis repeat potassium level 4.7, patient seen by Nephrology recommended patient may benefit getting hemodialysis 4 times a week, to further evaluate stool hemoglobin and CK levels ordered, patient CK levels are normal, he is feeling much better today not as tired or fatigued, patient will be seen by Nephrology and further recommendation to follow, will continue to monitor will have a PT OT evaluate the patient and further recommendation to follow. (2) Abscess of right buttock: Code(s): L02.31 - Cutaneous abscess of buttock Status: Acute Assessment and Plan: patient with a pilonidal cyst status post I&D on 11/18, seen by surgery service the wound is healing. (3) Essential (primary) hypertension: Code(s): I10 - Essential (primary) hypertension Status: Acute Assessment and Plan: will continue home regimen and monitor (4) End stage chronic kidney disease: Code(s): N18.6 - End stage renal disease Status: Acute Assessment and Plan: patient with history of end-stage renal disease on hemodialysis Wednesday and Wednesday presented with hyperkalemia as patient had missed hemodialysis on Wednesday, seen by carpentry professional and further recommendation to follow (5) Weakness: Code(s): R53.1 - Weakness Status: Acute Assessment and Plan: etiology uncertain most likely secondary to hyperkalemia CK level is ordered and will monitor DS: Summary Hospital Course Reason for hospitalization: ED-HPI?Narrative: Patient is a 55-year-old male who presents ER with whole body weakness.? Reports when he exerts himself his muscles get very weak.? He has had a fall today where he hit his head but did not lose consciousness.? He was seen in general surgery clinic today to have an abscess drainage and they recommend he come to the ER given his weakness but he declined.? Patient missed his dialysis today but did have his last dialysis on Wednesday.? Reports he was able to finish the whole session.? His carpentry professional is mis
[2021-11-21 12:15] LABS: Glucose Point of Care 478 mg/dl (65-105)
[2021-11-25 21:38] LABS: Haptoglobin 199 mg/dL (43-212)
== END 2021-11-21 14:23 | disposition home or self-care (01) ==
LOC: ANHED 22:28 → ANHIMU 11-19 03:41 → ANH2MED 11-21 11:57 → ANHIMU 11-25 09:05
PROVIDERS: Internal Medicine Nephrology; Admitting Provider Internal Medicine; Emergency Provider Emergency Medicine; PCP Internal Medicine; Visit Provider Family Medicine
DX: E87.5 Hyperkalemia (principal); L02.31 Cutaneous abscess of buttock; I13.2 Hypertensive heart and chronic kidney disease with heart failure and with stage 5 chronic kidney disease, or end stage renal disease; I50.9 Heart failure, unspecified; N18.6 End stage renal disease; Z99.2 Dependence on renal dialysis; E11.22 Type 2 diabetes mellitus with diabetic chronic kidney disease; N25.0 Renal osteodystrophy; D63.1 Anemia in chronic kidney disease; Z79.4 Long term (current) use of insulin; R53.1 Weakness; S09.90XA Unspecified injury of head, initial encounter; W19.XXXA Unspecified fall, initial encounter; Z20.822 Contact with and (suspected) exposure to COVID-19; F41.9 Anxiety disorder, unspecified; F32.A Depression, unspecified; J45.909 Unspecified asthma, uncomplicated; E11.51 Type 2 diabetes mellitus with diabetic peripheral angiopathy without gangrene; I25.10 Atherosclerotic heart disease of native coronary artery without angina pectoris; Z95.5 Presence of coronary angioplasty implant and graft; I25.5 Ischemic cardiomyopathy; E78.5 Hyperlipidemia, unspecified; F17.210 Nicotine dependence, cigarettes, uncomplicated; Z79.51 Long term (current) use of inhaled steroids; Z79.82 Long term (current) use of aspirin; Z79.899 Other long term (current) drug therapy
CPT/HCPCS: 36415; 51701; 70450; 71046; 80048; 80053; 80069; 81001; 82550; 82728; 82948; 83010; 83540; 83550; 83735; 85025; 85027; 86706; 87340; 93005; 96372; 96374; 96375; 96376; 97161; 97165; 99285; A9270; C9803; G0257; G0378; J0610; J1644; J1815; J1940; J7030; Q5105; U0003; U0005

== ENCOUNTER 2021-12-20 04:56 | Inpatient (IN) | payer MEDICARE, SELFPAY ==
[2021-12-20] VITALS (30 sets, daily range): BP systolic 113–197; BP diastolic 75–107; PULSE 69–89; RESP 10–31; TEMP 36–36.5; O2SAT 87–100; BMI 30.3
--- NOTE | ~2021-12-20 | CT_ITS ---
CT OF RIGHT HAND EXAMINATION: CT hip LT wo con DATE: 12/21/2021 18:43 INDICATION: TECHNIQUE: Computed tomography (CT) of the hip was performed without intravenous contrast. Automated exposure control and iterative reconstruction technique were employed. The dose-length product was 44 8.83 mGy-cm. COMPARISON: X-ray left hip 12/20/2021. CT pelvis 08/20/2021 FINDINGS: Limitations: None Bones: Decreased mineralization. Comminuted minimally displaced fracture of the superior portion of t he left greater trochanter. No other fracture. The hip is aligned. Soft Tissues:Bladder wall thickening. Diverticulosis without diverticulitis. Presacral edema. Vas def erens 6 6 calcification as can be seen with diabetes.. Fluid: Soft tissue edema about the fracture site. Superficial left hip contusion. IMPRESSION: Comminuted, minimally displaced fracture of the superior portion of the left greater trochanter. Reviewed, dictated and finalized at location K. IMPRESSION: Comminuted, minimally displaced fracture of the superior portion of the left gr eater trochanter.
--- NOTE | ~2021-12-20 | XR_ITS ---
EXAMINATION: XR chest 1V portable DATE: 12/20/2021 05:33 INDICATION: Weakness TECHNIQUE: frontal view of the chest was obtained. COMPARISON: Chest radiograph dated 11/18/2021 FINDINGS: Opacities in the bilateral lower lung zones with blunting at the costophrenic angles consistent with small bilateral pleural effusions and associated atelectasis and/or pneumonia. Pleural effusions. Sli ghtly decreased compared with the prior study. No pneumothorax. Cardiomegaly. IMPRESSION: 1. Interval decrease in small bilateral pleural effusions with associated bibasilar atelectasis/or pn eumonia. 2. Cardiomegaly. Reviewed, dictated and finalized at location A. IMPRESSION: 1. Interval decrease in small bilateral pleural effusions with associated bibas ilar atelectasis/or pneumonia. 2. Cardiomegaly.
--- NOTE | ~2021-12-20 | XR_ITS ---
EXAMINATION: XR ankle LT min 3V DATE: 12/20/2021 06:13 INDICATION: Left ankle pain post recent injury with fracture noted at outside institution a couple we eks prior. TECHNIQUE: Anteroposterior, oblique, mortise, and lateral views of the left ankle were obtained. COMPARISON: 10/21/2021 FINDINGS: Old healed fracture of the distal left fibula with interfragmentary screw and lateral plate and screw fixation. There is a transverse subacute appearing nondisplaced fracture at the distal tip of the la teral malleolus distal to the lateral plate. Alignment remains essentially anatomic. No other fractur es identified. Small heterotopic ossicle near the tip of the medial malleolus likely sequela of chron ic deltoid ligament sprain. Moderate to severe polyarticular osteoarthritis at the tarsal metatarsal joints. Mild osteoarthritis at the left ankle and remaining joints in the hindfoot. Small plantar abhijit caneal spur. Vascular calcifications along the anterior tibial and dorsalis pedis arteries. IMPRESSION: 1. Nondisplaced subacute appearing fracture at the distal tip of the lateral malleolus distal to a pl ain screw fixations for an earlier more proximal left fibular fracture. Reviewed, dictated and finalized at location A. IMPRESSION: 1. Nondisplaced subacute appearing fracture at the distal tip of the lateral ma lleolus distal to a plain screw fixations for an earlier more proximal left fib ular fracture.
--- NOTE | ~2021-12-20 | XR_ITS ---
EXAMINATION: XR hand LT min 3V DATE: 12/20/2021 06:45 INDICATION: Left hand pain TECHNIQUE: Posteroanterior, oblique and lateral views of the left hand were obtained. COMPARISON: None. FINDINGS: Bone alignment is normal. No acute fracture. Suggestion of an old healed fractures at the base of the fifth middle phalanx with moderate secondary osteoarthritis at the fifth proximal interphalangeal matti int. Additional old healed fracture at the neck of the fifth metacarpal with additional mild secondar y osteoarthritis of the fifth metacarpophalangeal joint. Additional more typical distribution of oste oarthritis, severe at the triscaphe joint, moderate at the first carpometacarpal joint and mild at a few additional interphalangeal joints. Diffuse osteopenia. Vascular calcification along the radial an d ulnar arteries. Mild soft tissue swelling about the wrist. IMPRESSION: 1. Moderate to severe osteoarthritis at the radial aspect of the carpus 2. Likely old healed fractures at the neck of the fifth metacarpal and base of the fifth proximal pha lanx with secondary osteoarthritis at the fifth metacarpophalangeal and proximal interphalangeal join ts. Reviewed, dictated and finalized at location A. IMPRESSION: 1. Moderate to severe osteoarthritis at the radial aspect of the carpus 2. Likely old healed fractures at the neck of the fifth metacarpal and base of the fifth proximal phalanx with secondary osteoarthritis at the fifth metacarpo phalangeal and proximal interphalangeal joints.
--- NOTE | ~2021-12-20 | XR_ITS ---
EXAMINATION: XR hip LT min 3V w AP pelvis DATE: 12/20/2021 06:13 INDICATION: Left hip pain post recent injury TECHNIQUE: Anteroposterior view of the pelvis and anteroposterior, frog leg and cross-table lateral v iews of the left hip were obtained. COMPARISON: Pelvis CT dated 08/20/2021 FINDINGS: Bone alignment is normal. Old healed fracture at the right inferior pubic ramus. No acute fracture or avascular necrosis. Mild osteoarthritis at the bilateral hip and sacroiliac joints. Vascular calcifi cations in the pelvis and bilateral thighs. IMPRESSION: 1. Mild bilateral hip and sacroiliac osteoarthritis. No acute osseous abnormality. Reviewed, dictated and finalized at location A. IMPRESSION: 1. Mild bilateral hip and sacroiliac osteoarthritis. No acute osseous abnormali ty.
--- NOTE | ~2021-12-20 | XR_ITS ---
EXAMINATION: XR knee LT 3V DATE: 12/20/2021 06:13 INDICATION: Left knee pain TECHNIQUE: AP, oblique and crosstable lateral views of the left knee were obtained. COMPARISON: None. FINDINGS: There are some callus formation about a nondisplaced subacute appearing fracture at the neck of the p roximal left fibula. No other fractures identified. Joint spaces appear normal on nonweightbearing im aging. No left knee joint effusion. Vascular calcifications along the popliteal artery. IMPRESSION: 1. Healing nondisplaced likely subacute fracture of the neck of the proximal fibula. Reviewed, dictated and finalized at location A. IMPRESSION: 1. Healing nondisplaced likely subacute fracture of the neck of the proximal fi bula.
--- NOTE | 2021-12-20 05:03 | ECG_ITS ---
Measurements Intervals [place] Rate: 73 P: 31 NC: 216 QRS: -55 QRSD: 166 T: 73 QT: 488 QTc: 541 Interpretive Statements SINUS RHYTHM WITH FIRST DEGREE AV BLOCK LEFT AXIS DEVIATION RIGHT BUNDLE BRANCH BLOCK BORDERLINE ST-T WAVE ABNORMALITY- HIGH LATERAL LEADS ABNORMAL ECG COMPARED TO ECG 11/18/2021 21:54:32 NO SIGNIFICANT CHANGES Electronically Signed On 12-20-2021 7:35:11 CDT by Reji Poon D.O.
--- NOTE | 2021-12-20 05:24 | ED.GENADULT ---
HPI - General Adult General Chief complaint: Weakness Stated complaint: GEN AMAYA, Kaden HIP PAIN Time Seen by Provider: 12/20/21 05:03 History of Present Illness HPI narrative: Patient 56-year-old gentleman who presents the emergency department with chief complaint of generalized weakness. The patient reports for the last 2 days he has been having episodes where he feels extremely weak. The patient reports on the he was down in [place] and fell and was found to have a fracture in his lower extremity. Patient reports that he was placed in a splint but removed it by the time he got home. The patient states that he has been doing a toe-touch weightbearing to pivot to the bathroom but not walking on it. Patient states that he is due for dialysis today and reports that he has been feeling much weaker and just feels as though he has no energy. Patient reports this feels similar to whenever his potassium levels have been elevated. Patient denies shortness of breath denies chest pain. Related Data Home Medications Medication Instructions Recorded Confirmed azelastine 137 mcg (0.1 %) nasal 2 spray intranasal Q12H PRN 08/19/21 12/03/21 spray aerosol Allergy Symptoms dextroamphetamine-amphetamine 20 20 mg PO BID 08/19/21 12/03/21 mg tablet furosemide 80 mg tablet (Lasix) 80 mg PO TID 08/19/21 12/03/21 insulin degludec 100 unit/mL (3 38 unit subcut DAILY 08/19/21 12/03/21 mL) subcutaneous pen (Tresiba FlexTouch U-100 insulin) insulin lispro 100 unit/mL 1 sliding scale dose subcut TIDWM 08/19/21 12/03/21 subcutaneous pen (Humalog KwikPen (U-100) Insulin) levothyroxine 50 mcg tablet 50 mcg PO DAILY 08/19/21 12/03/21 rosuvastatin 40 mg tablet 40 mg PO DAILY 08/19/21 12/03/21 tamsulosin 0.4 mg capsule 0.4 mg PO DAILY 08/19/21 12/03/21 gabapentin 300 mg capsule 300 mg PO DAILY 11/18/21 12/03/21 glucagon 3 mg/actuation nasal 3 mg intranasal DAILY PRN 11/19/21 12/03/21 spray (Baqsimi) Hypoglycemia metoprolol succinate 25 mg 25 mg PO DAILY 11/19/21 12/03/21 tablet,extended release 24 hr Allergies Allergy/AdvReac Type Severity Reaction Status Date / Time cantaloupe Allergy Severe ITCHING, Verified 12/03/21 15:10 SWOLLEN LIPS Review of Systems Review of Systems: A 10 system review of systems was completed on the patient and is negative except for what is stated in the HPI. Nursing and ancillary documentation was reviewed. [facility] Past Medical History Medical History Anxiety and depression Asthma CAD (coronary artery disease) s/p stent placement to ostial LAD and to mid RCA with Impella support Cardiomyopathy Ischemic CHF (congestive heart failure) Diabetes mellitus Dyslipidemia End stage chronic kidney disease Essential (primary) hypertension History of alcoholism History of CVA (cerebrovascular accident) Hx of fracture of pelvis PAD (peripheral artery disease) Moderate to severe on the right lower extremity Surgical History Surgical History H/O nasal septoplasty History of carpal tunnel release History of incision and drainage complex I&D left buttock abscess 4x3x3 cm 08/21/21 Radial fracture Right great toe amputee Status post ORIF of fracture of ankle Family History Family History Other Adopted Social History Social History Social History: Patient lives at home with his . He has 4 children. Three of the children are grown adults. One child has . He still smokes 1 pack per day for the past 40 years. He quit alcohol about 10 years ago but used to be heavy alcohol consumer. He denies drug use. He is a full code. He nominates his to be the individual would make medical decisions for him if he is unable. Smoking packs per
[2021-12-20 05:38] LABS: Basophils Percent Auto 0.3 % (0.2-1.2); Eosinophils Absolute Auto 0.1 K/mm3 (0-0.3); Eosinophils Percent Auto 0.5 % (0-4.4); Hematocrit 27.8 % (42.0-52.0); Hemoglobin 9.1 g/dL (14.0-18.0); Immature Granulocyte Absolute 0.06 K/mm3 (0.00-0.031); Immature Granulocyte Percent A 0.5 % (0-0.5); Lymphocytes Absolute Auto 0.62 K/mm3 (0.9-3.2); Lymphocytes Percent Auto 5.6 % (18.3-44.2); Mean Corpuscular HGB Conc 32.7 g/dl (32-36); Mean Corpuscular Hemoglobin 30.5 pg (26-34); Mean Corpuscular Volume 93.3 fl (80-100); Mean Platelet Volume 10.7 fl (7.4-10.4); Monocytes Absolute Auto 0.6 K/mm3 (0.1-0.6); Monocytes Percent Auto 5.6 % (2.6-8.5); Neutrophils Absolute Auto 9.6 K/mm3 (1.3-6.7); Neutrophils Percent Auto 87.5 % (45.5-73.1); Platelet Count Result 158 k/mm3 (150-375); Red Blood Count 2.98 M/mm3 (4.6-6.20); Red Cell Distribution Width 13.5 % (11.5-14.5)
[2021-12-20 05:55] LABS: Lactic Acid Reflex 1.4 mmol/L (0.7-2.0)
[2021-12-20 06:31] LABS: Procalcitonin 1.1 ng/mL
[2021-12-20 06:42] LABS: Alanine Aminotransferase 125 U/L (6-50); Albumin Level 3.9 g/dL (3.5-5.1); Alkaline Phosphatase 166 U/L (38-126); Anion Gap 26 mmol/L (8-16); Aspartate Amino Transferase 133 U/L (17-59); Bilirubin,Total 0.9 mg/dL (0.2-1.3); Blood Urea Nitrogen 110 mg/dL (9-20); Calcium 6.9 mg/dL (8.4-10.2); Carbon Dioxide 20 mmol/L (22-30); Chloride 84 mmol/L (98-107); Estimated CRCL calculation 10 ml/min; Estimated Glomerular Filt Rate 8; Glucose 388 mg/dL (65-110); Magnesium 2.6 mg/dL (1.6-2.3); Potassium 6.5 mmol/L (3.4-5.0); Sodium 130 mmol/L (137-145)
[2021-12-20] MEDS: MORPHINE SULFATE (*CRX) 4 MG/ML INJ IV PUSH (06:44)
[2021-12-20 06:54] LABS: Troponin I 0.079 ng/mL (0.000-0.034)
[2021-12-20] MEDS: INSULIN HUMAN REGULAR (*BKC) 100 UNITS/ML 10 UNITS IV PUSH (07:19)
[2021-12-20] MEDS: CALCIUM GLUCONATE 1,000 MG/10 ML VIAL 1000 MG IV PUSH (07:22)
[2021-12-20] MEDS: DEXTROSE 50% 25 GM/50 ML SYRINGE IV PUSH (07:24)
--- NOTE | 2021-12-20 10:33 | ADMGEN ---
This patient, Jesus Ceja, was admitted to IMU Room 203-01. Patient/family oriented to hospital policies and general routines including ID bracelet, bed and alarms, visiting hours, pain management, procedures, bathroom and other care routines, personal items, smoking policy, room service/diet, and visiting hours. Information on how to activate the Rapid Response Team has been discussed. Patient/Family are encouraged to report perceived risks to care and to ask questions if they do not understand what they are told or what they should do.
[2021-12-20 11:02] LABS: Potassium 5.9 mmol/L (3.4-5.0); Troponin I 0.098 ng/mL (0.000-0.034)
--- NOTE | 2021-12-20 11:32 | PM.CNNEP ---
Assessment and Plan Assessment and plan (1) ESRD (end stage renal disease): Code(s): N18.6 - End stage renal disease Status: Chronic Assessment and Plan: HD today contineu T/T/S schedule while hospitalized follow electrolytes, volume status, and clearance (2) Hyperkalemia: Code(s): E87.5 - Hyperkalemia Status: Chronic Assessment and Plan: chronic issue from review of records felt to be related to dietary indiscretion based on past evaluation was on lokelma chronically in the past (but not currently) better s/p medical management and with dialysis treatment today (3) Generalized weakness: Code(s): R53.1 - Weakness Status: Acute Assessment and Plan: s/p recent fall when out of town previous bouts of hyperkalemia have given him this symptom in the past as well PT/OT evaluation (4) Hypertension: Code(s): I10 - Essential (primary) hypertension Status: Chronic Assessment and Plan: elevated at this time follow-up on readings post HD treatment (5) Anemia: Code(s): D64.9 - Anemia, unspecified Status: Chronic Assessment and Plan: due to ESRD Epogen with HD follow trend of H/H (6) IDDM (insulin dependent diabetes mellitus): Status: Chronic Assessment and Plan: follow accuchecks glycemic control Will continue to follow. History of Present Illness Reason for Consult Consult date: 12/20/21 Reason for consult: end stage renal disease Chief Complaint Chief complaint: hyperkalemia,generalized weakness,esrd History of Present Illness Narrative: The patient is a 56-year-old male with a past medical history as outlined below who presented to [facility] Emergency room with complaints of generalized weakness. The patient states that for the last 24-48 hours he has been having episodes of extreme weakness without a clear-cut cause. He does report that he was on vacation in [place] 2 weeks ago and he apparently fell and had a fracture in his lower extremities. He was placed in a splint for stabilization of this issue but he stopped wearing it as it felt too uncomfortable. His weakness apparently is complicated by lack of energy as well. The symptoms seem to be somewhat similar to when he had elevated potassium levels in the past. He has no other acute or systemic symptoms with regard to chest pain, shortness of breath, nausea, vomiting, diarrhea, abdominal pain, palpitations, or syncope. Workup and evaluation emergency room demonstrated the patient to be hemodynamically stable and routine blood test demonstrated labs consistent with his known history of end-stage renal disease but with evidence of hyperkalemia with a potassium level of 6.5. Multiple x-rays were done given his history of a fall and demonstrated significant degenerative joint disease/osteoarthritis and there was mention of a nondisplaced subacute appearing fracture at the distal tip of the lateral malleolus. Given his critical electrolyte abnormality and so she Chin with his weakness, he was admitted the hospital for dialysis as well as further evaluation and therapy. Renal consultation was requested due to his end-stage renal disease. The patient normally dialyzes on a Wednesday, , Wednesday dialysis schedule under the care of Dr. yaya anand at [facility]. He was due for dialysis today but came to the emergency room given the a for mentioned symptoms. He denies missing any dialysis treatments but as already mentioned above, he has had recurrent hospitalizations for hyperkalemia in the past. At 1 point he was on chronic locale my therapy but apparently was not taking this medication or was discontinued as he was not consistent in taking this medication. The assumption has always been that his potassium levels have been a manifestation of his dietary habits. Currently, at the time my visit, he appears to be tole
[2021-12-20] MEDS: EPOETIN ALFA-EPBX 10,000 UNITS/ML VIAL 10000 UNITS IV PUSH (12:50)
[2021-12-20] MEDS: SODIUM CHLORIDE 0.9% IV 1,000 ML 999 ML IV CONT (12:52)
--- NOTE | 2021-12-20 13:05 | PM.IMHP ---
H&P: HPI History of Present Illness Date/Time: 12/20/21 13:05 Chief Complaint: atient 56-year-old gentleman who presents the emergency department with chief complaint of generalized weakness.? The patient reports for the last 2 days he has been having episodes where he feels extremely weak.? The patient reports on the he was down in [place] and fell and was found to have a fracture in his lower extremity.? Patient reports that he was placed in a splint but removed it by the time he got home.? The patient states that he has been doing a toe-touch weightbearing to pivot to the bathroom but not walking on it.? Patient states that he is due for dialysis today and reports that he has been feeling much weaker and just feels as though he has no energy.? Patient reports this feels similar to whenever his potassium levels have been elevated.? Patient denies shortness of breath denies chest pain. Review of Systems Review of Systems: Negative except as stated in HPI PMFSH Past Medical History Medical History Anxiety and depression Asthma CAD (coronary artery disease) s/p stent placement to ostial LAD and to mid RCA with Impella support Cardiomyopathy Ischemic CHF (congestive heart failure) Diabetes mellitus Dyslipidemia End stage chronic kidney disease Essential (primary) hypertension History of alcoholism History of CVA (cerebrovascular accident) Hx of fracture of pelvis PAD (peripheral artery disease) Moderate to severe on the right lower extremity Surgical History Surgical History H/O nasal septoplasty History of carpal tunnel release History of incision and drainage complex I&D left buttock abscess 4x3x3 cm 08/21/21 Radial fracture Right great toe amputee Status post ORIF of fracture of ankle Family History Family History Other Adopted Social History Social History Social History: Patient lives at home with his . He has 4 children. Three of the children are grown adults. One child has . He still smokes 1 pack per day for the past 40 years. He quit alcohol about 10 years ago but used to be heavy alcohol consumer. He denies drug use. He is a full code. He nominates his to be the individual would make medical decisions for him if he is unable. Smoking packs per day: 2 Smoking cigarettes per day: 40.0 Years smoked: 43 Smoking pack-years: 86.00 Smoking status: Heavy tobacco smoker Tobacco type: cigarettes Second hand tobacco smoke exposure: No Alcohol intake: former Substance use: former Substance use type: does not use Gender identity (if verbalized by the patient): Male Spiritual care concerns: No Meds Home Medications and Allergies Home Medications Medication Instructions Recorded Confirmed Type azelastine 137 mcg (0.1 %) nasal 2 spray intranasal Q12H PRN 08/19/21 12/20/21 History spray aerosol Allergy Symptoms dextroamphetamine-amphetamine 20 20 mg PO BID 08/19/21 12/20/21 History mg tablet furosemide 80 mg tablet (Lasix) 80 mg PO TID 08/19/21 12/20/21 History insulin degludec 100 unit/mL (3 38 unit subcut DAILY 08/19/21 12/20/21 History mL) subcutaneous pen (Tresiba FlexTouch U-100 insulin) insulin lispro 100 unit/mL 1 sliding scale dose subcut TIDWM 08/19/21 12/20/21 History subcutaneous pen (Humalog KwikPen (U-100) Insulin) levothyroxine 50 mcg tablet 50 mcg PO DAILY 08/19/21 12/20/21 History rosuvastatin 40 mg tablet 40 mg PO DAILY 08/19/21 12/20/21 History tamsulosin 0.4 mg capsule 0.4 mg PO DAILY 08/19/21 12/20/21 History albuterol sulfate 90 mcg/actuation 2 puff inhalation Q4-6H PRN 08/22/21 12/20/21 Rx aerosol inhaler (Ventolin HFA) shortness of breath or wheezing #18 grams aspirin 81 mg chewable tab
[2021-12-20 14:35] LABS: Troponin I 0.121 ng/mL (0.000-0.034)
[2021-12-20 15:11] LABS: Hepatitis B Surface Antigen Negative (Negative)
[2021-12-20 15:28] LABS: Hepatitis B Surface Anti Res Negative
[2021-12-20 16:35] LABS: Glucose Point of Care 138 mg/dl (65-105)
[2021-12-20] MEDS: FUROSEMIDE 80 MG TABLET PO (17:32)
[2021-12-20] MEDS: HYDROcodone/acetaminophen (*CRX) 5-325 MG TABLET 1 TAB PO ×2 (17:36→23:42)
[2021-12-20 20:16] LABS: Glucose Point of Care 235 mg/dl (65-105)
[2021-12-20] MEDS: METOPROLOL SUCCINATE EXT REL 25 MG TABCR PO (20:27)
[2021-12-21] VITALS (15 sets, daily range): BP systolic 137–173; BP diastolic 62–75; PULSE 67–81; RESP 16–20; TEMP 36.2–36.9; O2SAT 91–99
[2021-12-21 05:32] LABS: Anion Gap 13 mmol/L (8-16); Blood Urea Nitrogen 55 mg/dL (9-20); Carbon Dioxide 23 mmol/L (22-30); Chloride 93 mmol/L (98-107); Estimated CRCL calculation 16 ml/min; Estimated Glomerular Filt Rate 14; Glucose 246 mg/dL (65-110); Potassium 4.1 mmol/L (3.4-5.0); Sodium 129 mmol/L (137-145)
[2021-12-21] MEDS: LEVOTHYROXINE SODIUM 50 MCG TABLET PO (06:09)
[2021-12-21 08:18] LABS: Glucose Point of Care 346 mg/dl (65-105)
[2021-12-21] MEDS: INSULIN ASPART (*BKC) 100 UNITS/ML SUB-Q ×2 (09:18→18:26)
[2021-12-21] MEDS: ROSUVASTATIN 10 MG TABLET 40 MG PO (09:21)
[2021-12-21] MEDS: TAMSULOSIN HCL 0.4 MG CAPSULE PO (09:21)
[2021-12-21] MEDS: METOPROLOL SUCCINATE EXT REL 25 MG TABCR PO (09:22)
[2021-12-21] MEDS: GABAPENTIN 300 MG CAPSULE PO (09:22)
[2021-12-21] MEDS: ASPIRIN 81 MG CHEWABLE TABLET PO (09:23)
[2021-12-21] MEDS: FUROSEMIDE 80 MG TABLET PO ×3 (09:23→18:27)
[2021-12-21] MEDS: INSULIN GLARGINE (*BKC) 100 UNITS/ML 38 UNITS SUB-Q (09:33)
[2021-12-21] MEDS: HYDROcodone/acetaminophen (*CRX) 5-325 MG TABLET 1 TAB PO ×2 (10:00→20:31)
[2021-12-21] MEDS: NICOTINE (*PBKC) 14 MG PATCH 1 PATCH TRANSDERM (10:37)
--- NOTE | 2021-12-21 11:03 | PM.IMPN ---
Progress Note: A&P Assessment and Plan (1) Hypertension: Code(s): I10 - Essential (primary) hypertension Status: Acute Assessment and Plan: Continue home medications. Monitor blood pressure (2) Hyperkalemia: Code(s): E87.5 - Hyperkalemia Status: Acute Assessment and Plan: Status post dialysis. Hyperkalemia now resolved (3) Generalized weakness: Code(s): R53.1 - Weakness Status: Acute Assessment and Plan: Possibly worsened by hyperkalemia. PTOT. (4) ESRD (end stage renal disease): Code(s): N18.6 - End stage renal disease Status: Acute Assessment and Plan: Nephrology following (5) Chronic pain: Code(s): G89.29 - Other chronic pain Status: Acute Assessment and Plan: Continue pain medication (6) CHF (congestive heart failure): Code(s): I50.9 - Heart failure, unspecified Status: Acute Assessment and Plan: Compensated (7) CAD (coronary artery disease): Code(s): I25.10 - Atherosclerotic heart disease of [place] coronary artery without angina pectoris Status: Acute Assessment and Plan: Monitor, no chest pain (8) Dyslipidemia: Code(s): E78.5 - Hyperlipidemia, unspecified Status: Acute Assessment and Plan: Monitor, continue home meds (9) Tibia fracture: Code(s): S82.209A - Unspecified fracture of shaft of unspecified tibia, initial encounter for closed fracture Status: Acute Assessment and Plan: Patient has a brace currently on. He is going to follow up with Ortho in a day or 2. This will be done as an outpatient (10) Left hip pain: Code(s): M25.552 - Pain in left hip Status: Acute Assessment and Plan: As he is having more pain. Will get a left hip CT scan, x-ray was negative. Subjective Date/time seen: 12/21/21 11:03 Still having significant left hip pain, still having weakness. Electrolytes look better. Exam Narrative: General: alert and oriented Psych: appropriate mood nad affect Eyes: PERRLA Neck: Trachea midline, no new lesions Skin: no changes Lungs: CTA Cardiac: Normal S1,S2, no MGR ABD: soft, nd, nt, nbs Ext: no new lesions, no cce Vasc: Pulses intact Objective Data Vital Signs Vital Signs: Vital Signs - 24 hr 12/20/21 11:40 12/20/21 11:15 12/20/21 12:00 Temperature 97.4 F L Pulse Rate 69 72 84 Respiratory Rate 16 Blood Pressure 174/98 H 163/92 H 166/85 H Pulse Oximetry Oxygen Delivery 12/20/21 12:20 12/20/21 11:22 12/20/21 12:40 Temperature Pulse Rate 71 72 77 Respiratory Rate Blood Pressure 113/90 177/98 H 178/96 H Pulse Oximetry Oxygen Delivery 12/20/21 13:00 12/20/21 13:20 12/20/21 14:20 Temperature Pulse Rate 77 77 80 Respiratory Rate Blood Pressure 180/95 H 184/94 H 179/98 H Pulse Oximetry Oxygen Delivery 12/20/21 14:40 12/20/21 15:45 12/20/21 13:40 Temperature 97.7 F Pulse Rate 79 82 78 Respiratory Rate 16 Blood Pressure 180/98 H 196/96 H 194/94 H Pulse Oximetry Oxygen Delivery 12/20/21 14:00 12/20/21 15:00 12/20/21 15:20 Temperature Pulse Rate 79 78 81 Respiratory Rate Blood Pressure 193/98 H 197/94 H 193/96 H Pulse Oximetry Oxygen Delivery 12/20/21 15:27 12/20/21 16:51 12/20/21 17:37 Temperature 97.5 F L Pulse Rate 80 86 Respiratory Rate 20 Blood Pressure 195/96 H 175/107 H 173/75 H Pulse Oximetry 95 Oxygen Delivery 12/20/21 12:00 12/20/21 14:00 12/20/21 16:00 Temperature Pulse Rate 72 79 84 Respiratory Rate Blood Pressure Pulse Oximetry Oxygen Delivery 12/20/21 18:00 12/20/21 16:00 12/20/21 19:28 Temperature 97.5 F L Pulse Rate 82 82 89 Respiratory Rate 20 20 Blood Pressure 182/82 H Pulse Oximetry 95 99 Oxygen Delivery Room Air 12/20/21 20:27 12/20/21 20:00 12/20/21 20:00 Temperature Pulse Rate 84 85 Respiratory Rate
--- NOTE | 2021-12-21 11:49 | P.PNNP_ITS ---
Progress Note: A&P Assessment and Plan (1) ESRD (end stage renal disease): Code(s): N18.6 - End stage renal disease Status: Chronic Assessment and Plan: * HD yesterday * continue T/T/S schedule while hospitalized * follow electrolytes, volume status, and clearance (2) Hyperkalemia: Code(s): E87.5 - Hyperkalemia Status: Chronic Assessment and Plan: * chronic issue from review of records * felt to be related to dietary indiscretion based on past evaluation * was on lokelma chronically in the past (but not currently?) * better s/p medical management and HD treatment yesterday (3) Generalized weakness: Code(s): R53.1 - Weakness Status: Acute Assessment and Plan: * s/p recent fall when out of town * X-rays on admission noted * previous bouts of hyperkalemia have given him this symptom in the past as well * PT/OT (4) Hypertension: Code(s): I10 - Essential (primary) hypertension Status: Chronic Assessment and Plan: * elevated at this time * partly related to pain(?) * titrate metoprolol but likely needs another agent (5) Anemia: Code(s): D64.9 - Anemia, unspecified Status: Chronic Assessment and Plan: * due to ESRD * Epogen with HD * follow trend of H/H (6) IDDM (insulin dependent diabetes mellitus): Status: Chronic Assessment and Plan: * follow accuchecks * glycemic control Will continue to follow. Subjective Date/time seen: 12/21/21 11:49 Tolerated dialysis yesterday without any issue or problems; K+ has normalized; major complaint is that of left hip pain as well as generalized weakness; otherwise, no other acute issues/events overnight or earlier this morning. Exam Narrative: General: WD/WN male in NAD Heart: normal S1 and S2; no rub Lungs: clear to auscultation Abdomen: soft, nontender, nondistended, positive bowel sounds Extremities: no cyanosis or clubbing; no edema Skin: warm and dry Objective Data Vital Signs Vital Signs: Vital Signs Temp Pulse Resp BP Pulse Ox O2 Del Method 12/21/21 09:22 80 12/21/21 08:00 36.8 C 71 16 168/73 H 98 12/21/21 06:00 73 12/21/21 04:00 67 12/21/21 04:00 36.5 C 67 20 158/75 H 98 12/21/21 04:00 Room Air 12/21/21 02:46 96 Room Air 12/21/21 01:57 68 12/21/21 00:00 Room Air 12/21/21 00:00 77 12/20/21 22:00 82 12/21/21 00:00 36.2 C L 81 16 154/72 H 98 12/20/21 20:00 85 12/20/21 20:00 Room Air 12/20/21 20:27 84 12/20/21 19:28 36.4 C L 89 20 182/82 H 99 12/20/21 16:00 82 20 95 Room Air 12/20/21 18:00 82 12/20/21 16:00 84 12/20/21 17:37 173/75 H 12/20/21 16:51 36.4 C L 86 20 175/107 H 95 12/20/21 15:27 80 195/96 H 12/20/21 15:20 81 193/96 H 12/20/21 15:00 78 197/94 H 12/20/21 15:45 36.5 C 82 16 196/96 H Intake/Output Intake/Output: Intake & Output 12/18/21 12/19/21 12/20/21 12/21/21 23:59 23:59 23:59 23:59 Intake Total 440 940 Output Total 4000 Balance -3560
--- NOTE | 2021-12-21 11:49 | PM.PNNEP ---
Progress Note: A&P Assessment and Plan (1) ESRD (end stage renal disease): Code(s): N18.6 - End stage renal disease Status: Chronic Assessment and Plan: HD yesterday continue T/T/S schedule while hospitalized follow electrolytes, volume status, and clearance (2) Hyperkalemia: Code(s): E87.5 - Hyperkalemia Status: Chronic Assessment and Plan: chronic issue from review of records felt to be related to dietary indiscretion based on past evaluation was on lokelma chronically in the past (but not currently?) better s/p medical management and HD treatment yesterday (3) Generalized weakness: Code(s): R53.1 - Weakness Status: Acute Assessment and Plan: s/p recent fall when out of town X-rays on admission noted previous bouts of hyperkalemia have given him this symptom in the past as well PT/OT (4) Hypertension: Code(s): I10 - Essential (primary) hypertension Status: Chronic Assessment and Plan: elevated at this time partly related to pain(?) titrate metoprolol but likely needs another agent (5) Anemia: Code(s): D64.9 - Anemia, unspecified Status: Chronic Assessment and Plan: due to ESRD Epogen with HD follow trend of H/H (6) IDDM (insulin dependent diabetes mellitus): Status: Chronic Assessment and Plan: follow accuchecks glycemic control Will continue to follow. Subjective Date/time seen: 12/21/21 11:49 Tolerated dialysis yesterday without any issue or problems; K+ has normalized; major complaint is that of left hip pain as well as generalized weakness; otherwise, no other acute issues/events overnight or earlier this morning. Exam Narrative: General: WD/WN male in NAD Heart: normal S1 and S2; no rub Lungs: clear to auscultation Abdomen: soft, nontender, nondistended, positive bowel sounds Extremities: no cyanosis or clubbing; no edema Skin: warm and dry Objective Data Vital Signs Vital Signs: Vital Signs Temp Pulse Resp BP Pulse Ox O2 Del Method 12/21/21 09:22 80 12/21/21 08:00 36.8 C 71 16 168/73 H 98 12/21/21 06:00 73 12/21/21 04:00 67 12/21/21 04:00 36.5 C 67 20 158/75 H 98 12/21/21 04:00 Room Air 12/21/21 02:46 96 Room Air 12/21/21 01:57 68 12/21/21 00:00 Room Air 12/21/21 00:00 77 12/20/21 22:00 82 12/21/21 00:00 36.2 C L 81 16 154/72 H 98 12/20/21 20:00 85 12/20/21 20:00 Room Air 12/20/21 20:27 84 12/20/21 19:28 36.4 C L 89 20 182/82 H 99 12/20/21 16:00 82 20 95 Room Air 12/20/21 18:00 82 12/20/21 16:00 84 12/20/21 17:37 173/75 H 12/20/21 16:51 36.4 C L 86 20 175/107 H 95 12/20/21 15:27 80 195/96 H 12/20/21 15:20 81 193/96 H 12/20/21 15:00 78 197/94 H 12/20/21 15:45 36.5 C 82 16 196/96 H Intake/Output Intake/Output: Intake & Output 12/18/21 12/19/21 12/20/21 12/21/21 23:59 23:59 23:59 23:59 Intake Total 440 940 Output Total 4000 Balance -3560 940 Meds/Results Medications: Active Medications Generic Name Dose Route Start Last Admin Trade Name Freq PRN Reason Stop Dose Admin Hydrocodone Bitart/Acetaminophen 1 tab 12/20/21 15:08 12/21/21 10:00 Hydrocodone/Acetaminophen (*Crx) 5-325 Mg Tablet PO 1 tab Q6H PRN Administration Pain Rated 4-6 Albuterol 2 puff 12/20/21 13:07 Albuterol Sulfate (*Sp) Aerosol 1 Puff INHALATION Q4-6H PRN shortness of breath or wheezing Aspirin 81 mg 12/21/21 08:00 12/21/21 09:23 Aspirin 81 Mg Chewable Tablet PO 81 mg DAILY@0800 NIYA Administration Azelastine HCl 2 spray 12/20/21 13:07 Azelastine Hcl Nasal 0.1% 137 Mcg/Spr 30 Ml Btl NASAL Q12H PRN Allergy Symptoms Dextrose 12.5 gm 12/20/21 13:28 Dextrose 50% 25 Gm/50 Ml Syringe IV PUSH PRN PRN Hypogl
[2021-12-21 11:55] LABS: Glucose Point of Care 471 mg/dl (65-105)
[2021-12-21] MEDS: INSULIN ASPART (*BKC) 100 UNITS/ML 12 UNITS SUB-Q (12:10)
[2021-12-21 16:41] LABS: Glucose Point of Care 366 mg/dl (65-105)
[2021-12-21 22:22] LABS: Glucose Point of Care 380 mg/dl (65-105)
[2021-12-22] VITALS (15 sets, daily range): BP systolic 123–165; BP diastolic 63–78; PULSE 64–85; RESP 16–24; TEMP 36.3–37.3; O2SAT 91–99
[2021-12-22] MEDS: LEVOTHYROXINE SODIUM 50 MCG TABLET PO (05:00)
[2021-12-22] MEDS: HYDROcodone/acetaminophen (*CRX) 5-325 MG TABLET 1 TAB PO ×3 (05:00→21:00)
[2021-12-22 08:25] LABS: Glucose Point of Care 431 mg/dl (65-105)
[2021-12-22 08:43] LABS: Anion Gap 17 mmol/L (8-16); Blood Urea Nitrogen 73 mg/dL (9-20); Calcium 7.2 mg/dL (8.4-10.2); Carbon Dioxide 28 mmol/L (22-30); Chloride 88 mmol/L (98-107); Estimated CRCL calculation 12 ml/min; Estimated Glomerular Filt Rate 10; Glucose 394 mg/dL (65-110); Potassium 4.6 mmol/L (3.4-5.0); Sodium 133 mmol/L (137-145)
[2021-12-22] MEDS: INSULIN ASPART (*BKC) 100 UNITS/ML 12 UNITS SUB-Q (08:57)
[2021-12-22] MEDS: ROSUVASTATIN 10 MG TABLET 40 MG PO (08:57)
[2021-12-22] MEDS: GABAPENTIN 300 MG CAPSULE PO (08:57)
[2021-12-22] MEDS: ASPIRIN 81 MG CHEWABLE TABLET PO (08:57)
[2021-12-22] MEDS: INSULIN GLARGINE (*BKC) 100 UNITS/ML 38 UNITS SUB-Q (08:57)
[2021-12-22] MEDS: METOPROLOL SUCCINATE EXT REL 25 MG TABCR PO (08:58)
[2021-12-22] MEDS: TAMSULOSIN HCL 0.4 MG CAPSULE PO (08:58)
[2021-12-22] MEDS: NICOTINE (*PBKC) 14 MG PATCH 1 PATCH TRANSDERM (08:58)
[2021-12-22] MEDS: ERGOCALCIFEROL 50,000 UNIT CAPSULE 50000 UNITS PO (08:58)
[2021-12-22] MEDS: FUROSEMIDE 80 MG TABLET PO ×3 (08:58→18:52)
--- NOTE | 2021-12-22 10:55 | PM.PNNEP ---
Progress Note: A&P Assessment and Plan (1) ESRD (end stage renal disease): Code(s): N18.6 - End stage renal disease Status: Chronic Assessment and Plan: HD do tomorrow. Will not give heparin in case he goes to surgery. (2) Hyperkalemia: Code(s): E87.5 - Hyperkalemia Status: Chronic Assessment and Plan: chronic issue from review of records felt to be related to dietary indiscretion based on past evaluation He gets prescribed Lokelma but does not take it. Last time he was in the hospital he said he would take it. However it is not on his admission med list. (3) Generalized weakness: Code(s): R53.1 - Weakness Status: Acute Assessment and Plan: s/p recent fall when out of town X-rays on admission noted He could feel himself getting weaker and that plus his persistent hip pain is what brought him to the ER Before the potassium got too bad (4) Hypertension: Code(s): I10 - Essential (primary) hypertension Status: Chronic Assessment and Plan: systolic seems to be a little bit better now between 120 and 150. The variability may partly be related to pain(?) titrate metoprolol but likely needs another agent (5) Anemia: Code(s): D64.9 - Anemia, unspecified Status: Chronic Assessment and Plan: due to ESRD Epogen with HD check CBC tomorrow. (6) IDDM (insulin dependent diabetes mellitus): Status: Chronic Assessment and Plan: On Accu-Cheks and sliding-scale insulin per hospitalist. Subjective Date/time seen: 12/22/21 10:55 Interval history: Jesus feels better today. He is having some breakfast. He is still having some pain with the fracture. Orthopedic surgery has been consulted Exam Narrative: General: WD/WN male in NAD Heart: normal S1 and S2; no rub Or gallop Lungs: clear to auscultation Abdomen: soft, nontender, nondistended, positive bowel sounds Extremities: no edema Skin: no rash. Objective Data Vital Signs Vital Signs: Vital Signs - 24 hr 12/21/21 12:00 12/21/21 12:00 12/21/21 14:00 Temperature 36.7 C Pulse Rate 70 73 81 Respiratory Rate 16 Blood Pressure 173/71 H Pulse Oximetry 98 Oxygen Delivery 12/21/21 16:00 12/21/21 16:00 12/21/21 12:00 Temperature 36.7 C Pulse Rate 71 69 Respiratory Rate 16 Blood Pressure 140/62 Pulse Oximetry 98 Oxygen Delivery Room Air 12/21/21 16:00 12/21/21 18:00 12/21/21 20:00 Temperature 36.8 C Pulse Rate 70 72 Respiratory Rate 18 Blood Pressure 165/69 H Pulse Oximetry 99 Oxygen Delivery Room Air 12/21/21 20:00 12/21/21 20:00 12/21/21 22:00 Temperature Pulse Rate 73 73 68 Respiratory Rate 18 Blood Pressure Pulse Oximetry 99 Oxygen Delivery Room Air 12/21/21 23:28 12/22/21 00:00 12/22/21 00:00 Temperature 36.9 C Pulse Rate 71 75 75 Respiratory Rate 18 18 Blood Pressure 137/71 Pulse Oximetry 91 91 Oxygen Delivery Room Air 12/22/21 02:00 12/22/21 04:00 12/22/21 04:00 Temperature Pulse Rate 72 73 73 Respiratory Rate 18 Blood Pressure Pulse Oximetry 91 Oxygen Delivery Room Air 12/22/21 04:00 12/22/21 06:00 12/22/21 08:58 Temperature 36.5 C Pulse Rate 65 64 76 Respiratory Rate 20 Blood Pressure 123/67 Pulse Oximetry 99 Oxygen Delivery 12/22/21 08:00 12/22/21 08:00 12/22/21 10:00 Temperature Pulse Rate 74 70 Respiratory Rate Blood Pressure Pulse Oximetry Oxygen Delivery Room Air 12/22/21 08:00 Temperature 36.3 C L Pulse Rate 75 Respiratory Rate 16 Blood Pressure 149/65 H Pulse Oximetry 91 Oxygen Delivery Intake/Output Intake/Output: Intake & Output 12/19/21 12/20/21 12/21/21 12/22/21 23:59 23:59 23:59 23:59 Intake Total 440 1180 480 Output Total 4000 Balance -3560 1180 480 Meds/Results Medications: Active Medications Generic N
--- NOTE | 2021-12-22 11:31 | PM.IMPN ---
Progress Note: A&P Assessment and Plan (1) Hypertension: Code(s): I10 - Essential (primary) hypertension Status: Chronic Assessment and Plan: Continue home medications. Monitor blood pressure (2) Hyperkalemia: Code(s): E87.5 - Hyperkalemia Status: Chronic Assessment and Plan: Status post dialysis. Hyperkalemia now resolved (3) Generalized weakness: Code(s): R53.1 - Weakness Status: Acute Assessment and Plan: Possibly worsened by hyperkalemia. PTOT. (4) ESRD (end stage renal disease): Code(s): N18.6 - End stage renal disease Status: Chronic Assessment and Plan: Nephrology following (5) Chronic pain: Code(s): G89.29 - Other chronic pain Status: Acute Assessment and Plan: Continue pain medication (6) CHF (congestive heart failure): Code(s): I50.9 - Heart failure, unspecified Status: Acute Assessment and Plan: Compensated (7) CAD (coronary artery disease): Code(s): I25.10 - Atherosclerotic heart disease of [place] coronary artery without angina pectoris Status: Acute Assessment and Plan: Monitor, no chest pain (8) Dyslipidemia: Code(s): E78.5 - Hyperlipidemia, unspecified Status: Acute Assessment and Plan: Monitor, continue home meds (9) Tibia fracture: Code(s): S82.209A - Unspecified fracture of shaft of unspecified tibia, initial encounter for closed fracture Status: Acute Assessment and Plan: Patient has a brace on currently. Ortho consult (10) Left hip pain: Code(s): M25.552 - Pain in left hip Status: Acute Assessment and Plan: CT shows comminuted nondisplaced fracture. Ortho consult. Bedrest for now. Subjective Date/time seen: 12/22/21 11:31 Still complaining of left hip pain. CT noted. No additional complaints Exam Narrative: General: alert and oriented Psych: appropriate mood nad affect Eyes: PERRLA Neck: Trachea midline, no new lesions Skin: no changes Lungs: CTA Cardiac: Normal S1,S2, no MGR ABD: soft, nd, nt, nbs Ext: no new lesions, no cce Vasc: Pulses intact Objective Data Vital Signs Vital Signs: Vital Signs - 24 hr 12/21/21 12:00 12/21/21 12:00 12/21/21 14:00 Temperature 98.1 F Pulse Rate 70 73 81 Respiratory Rate 16 Blood Pressure 173/71 H Pulse Oximetry 98 Oxygen Delivery 12/21/21 16:00 12/21/21 16:00 12/21/21 12:00 Temperature 98.1 F Pulse Rate 71 69 Respiratory Rate 16 Blood Pressure 140/62 Pulse Oximetry 98 Oxygen Delivery Room Air 12/21/21 16:00 12/21/21 18:00 12/21/21 20:00 Temperature 98.2 F Pulse Rate 70 72 Respiratory Rate 18 Blood Pressure 165/69 H Pulse Oximetry 99 Oxygen Delivery Room Air 12/21/21 20:00 12/21/21 20:00 12/21/21 22:00 Temperature Pulse Rate 73 73 68 Respiratory Rate 18 Blood Pressure Pulse Oximetry 99 Oxygen Delivery Room Air 12/21/21 23:28 12/22/21 00:00 12/22/21 00:00 Temperature 98.5 F Pulse Rate 71 75 75 Respiratory Rate 18 18 Blood Pressure 137/71 Pulse Oximetry 91 91 Oxygen Delivery Room Air 12/22/21 02:00 12/22/21 04:00 12/22/21 04:00 Temperature Pulse Rate 72 73 73 Respiratory Rate 18 Blood Pressure Pulse Oximetry 91 Oxygen Delivery Room Air 12/22/21 04:00 12/22/21 06:00 12/22/21 08:58 Temperature 97.7 F Pulse Rate 65 64 76 Respiratory Rate 20 Blood Pressure 123/67 Pulse Oximetry 99 Oxygen Delivery 12/22/21 08:00 12/22/21 08:00 12/22/21 10:00 Temperature Pulse Rate 74 70 Respiratory Rate Blood Pressure Pulse Oximetry Oxygen Delivery Room Air 12/22/21 08:00 Temperature 97.3 F L Pulse Rate 75 Respiratory Rate 16 Blood Pressure 149/65 H Pulse Oximetry 91 Oxygen Delivery Intake/Output Intake/Output: Intake & Output 12/19/21 12/20/21 12/21/21 12/22/21 23:59 23:59 23:59 23:
[2021-12-22 11:46] LABS: Glucose Point of Care 391 mg/dl (65-105)
[2021-12-22] MEDS: INSULIN ASPART (*BKC) 100 UNITS/ML SUB-Q (13:05)
[2021-12-22 17:19] LABS: Glucose Point of Care 337 mg/dl (65-105)
--- NOTE | 2021-12-22 17:26 | PC.NURSE ---
The CELL BIOLOGIST informed this RN that patient self administered home dose of Humalog with his dinner tray without informing any staff members. This RN educated the pt that self administering medication without prior approval is against hospital policy and potentially very harmful to the patient. The patient was visibly upset and stated, You guys aren't controlling my blood sugar and you're using the wrong insulin so I gave myself my own. This RN continued to explain to the patient that the doctor must give an order to use home medications and this will be attempted if the patient is willing to supply the home medications to pharmacy. Patient refused to give the medications for pharmacy verification at this time. Dr Ham made aware of the situation and gave the approval for the patient's home dose of Tresiba and to continue to use the hospital NovoLog sliding scale at this time as long as the patient follows the hospital's policy. The patient was willing to give his medications to his at this time.
--- NOTE | 2021-12-22 17:34 | PC.NURSE ---
Patient states he self administered 10 units of Humalog at 1630 (12/22/21) without staff's permission. See previous note.
--- NOTE | 2021-12-22 18:26 | PHAR ---
Tresiba FlexTouch Pen Subcutaneous Solution: 100 U/1 ML 3 ML PREFILLED SYRINGE
[2021-12-22 20:24] LABS: Glucose Point of Care 363 mg/dl (65-105)
[2021-12-23] VITALS (30 sets, daily range): BP systolic 146–195; BP diastolic 54–103; PULSE 75–96; RESP 12–18; TEMP 36.2–37; O2SAT 94–98
[2021-12-23] MEDS: HYDROcodone/acetaminophen (*CRX) 5-325 MG TABLET 1 TAB PO ×3 (03:55→20:38)
--- NOTE | 2021-12-23 04:21 | PC.NURSE ---
This patient called this RN to the room to use the bathroom. This RN educated the patient on the need to use the urinal in bed because of his bedrest order for his broken leg. The patient refused and insisted on standing and using the bathroom. This RN assisted the patient to the bathroom via walker and prompted the patient to not bear any weight on the affected leg. Pt back in bed with bed alarm on at this time.
[2021-12-23 05:05] LABS: Hematocrit 27.6 % (42.0-52.0); Hemoglobin 9.2 g/dL (14.0-18.0); Mean Corpuscular HGB Conc 33.3 g/dl (32-36); Mean Corpuscular Hemoglobin 31.9 pg (26-34); Mean Corpuscular Volume 95.8 fl (80-100); Mean Platelet Volume 9.9 fl (7.4-10.4); Platelet Count Result 230 k/mm3 (150-375); Red Blood Count 2.88 M/mm3 (4.6-6.20); Red Cell Distribution Width 13.5 % (11.5-14.5); White Blood Count 12.2 K/mm3 (4.5-10.0)
[2021-12-23 05:35] LABS: Albumin Level 3.5 g/dL (3.5-5.1); Anion Gap 18 mmol/L (8-16); Blood Urea Nitrogen 85 mg/dL (9-20); Calcium 7.9 mg/dL (8.4-10.2); Carbon Dioxide 28 mmol/L (22-30); Chloride 87 mmol/L (98-107); Estimated CRCL calculation 13 ml/min; Estimated Glomerular Filt Rate 9; Glucose 354 mg/dL (65-110); Phosphorus 7.2 mg/dL (2.5-4.5); Potassium 5.2 mmol/L (3.4-5.0); Sodium 133 mmol/L (137-145)
[2021-12-23] MEDS: LEVOTHYROXINE SODIUM 50 MCG TABLET PO (06:14)
[2021-12-23 07:54] LABS: Glucose Point of Care 412 mg/dl (65-105)
[2021-12-23] MEDS: INSULIN ASPART (*BKC) 100 UNITS/ML 6 UNITS SUB-Q ×2 (08:32→20:37)
--- NOTE | 2021-12-23 10:34 | PM.PNNEP ---
Progress Note: A&P Assessment and Plan (1) ESRD (end stage renal disease): Code(s): N18.6 - End stage renal disease Status: Chronic Assessment and Plan: HD under way. Doing well on the machine potassium is doing okay because he is on a renal diet now. (2) Hyperkalemia: Code(s): E87.5 - Hyperkalemia Status: Chronic Assessment and Plan: chronic issue from review of records felt to be related to dietary indiscretion based on past evaluation Will try giving Lokelma at discharge again. (3) Generalized weakness: Code(s): R53.1 - Weakness Status: Acute Assessment and Plan: s/p recent fall when out of town X-rays on admission noted Await Ortho input (4) Hypertension: Code(s): I10 - Essential (primary) hypertension Status: Chronic Assessment and Plan: systolic is high. Will remove fluid and see how it does. (5) Anemia: Code(s): D64.9 - Anemia, unspecified Status: Chronic Assessment and Plan: due to ESRD Epogen with HD Hemoglobin slowly rising (6) IDDM (insulin dependent diabetes mellitus): Status: Chronic Assessment and Plan: On Accu-Cheks and sliding-scale insulin per hospitalist. Subjective Date/time seen: 12/23/21 10:34 Interval history: Jesus feels better today. He is on dialysis and tolerating it well. He was seen at 9:30 a.m.. Removing about 4L of fluid. He says that this is usual ultrafiltration setting as an outpatient and has been eating and drinking well this admission. Potassium is 5.2 so he is on a 2 K bath. Exam Narrative: General: WD/WN male in NAD Heart: normal S1 and S2; no rub or gallop Lungs: clear to auscultation Abdomen: soft, nontender, nondistended, positive bowel sounds Extremities: no edema or cyanosis Skin: no rash or subcu nodules. Objective Data Vital Signs Vital Signs: Vital Signs - 24 hr 12/22/21 12:00 12/22/21 12:00 12/22/21 16:00 Temperature 36.8 C Pulse Rate 75 Respiratory Rate 20 Blood Pressure 150/63 H Pulse Oximetry 98 Oxygen Delivery Room Air Room Air 12/22/21 16:00 12/22/21 12:00 12/22/21 14:00 Temperature 37.0 C Pulse Rate 77 81 85 Respiratory Rate 24 H Blood Pressure 165/68 H Pulse Oximetry 95 Oxygen Delivery 12/22/21 16:00 12/22/21 18:00 12/22/21 20:00 Temperature 36.8 C Pulse Rate 74 70 80 Respiratory Rate 16 Blood Pressure 164/78 H Pulse Oximetry 96 Oxygen Delivery 12/22/21 20:00 12/22/21 20:00 12/22/21 22:00 Temperature Pulse Rate 80 80 83 Respiratory Rate 16 Blood Pressure Pulse Oximetry 96 Oxygen Delivery Room Air 12/22/21 21:45 12/22/21 23:59 12/23/21 00:00 Temperature 37.3 C Pulse Rate 78 81 Respiratory Rate 18 Blood Pressure 161/69 H Pulse Oximetry 96 97 Oxygen Delivery Room Air 12/23/21 00:00 12/23/21 02:00 12/23/21 04:00 Temperature 36.8 C Pulse Rate 78 81 80 Respiratory Rate 18 18 Blood Pressure 188/85 H Pulse Oximetry 97 98 Oxygen Delivery Room Air 12/23/21 04:00 12/23/21 04:00 12/23/21 05:46 Temperature Pulse Rate 85 80 Respiratory Rate 18 Blood Pressure 175/68 H Pulse Oximetry 98 Oxygen Delivery Room Air 12/23/21 06:00 12/23/21 07:56 12/23/21 08:49 Temperature 36.2 C L Pulse Rate 76 76 77 Respiratory Rate 12 Blood Pressure 176/54 H 195/103 H Pulse Oximetry 97 Oxygen Delivery 12/23/21 09:00 12/23/21 08:43 12/23/21 10:00 Temperature 36.4 C Pulse Rate 79 78 81 Respiratory Rate 16 Blood Pressure 193/103 H 190/103 H 146/76 H Pulse Oximetry Oxygen Delivery 12/23/21 09:20 12/23/21 09:20 12/23/21 09:40 Temperature Pulse Rate 78 78 75 Respiratory Rate Blood Pressure 175/97 H 175/97 H 161/84 H Pulse Oximetry Oxygen Delivery Intake/Output Intake/Output: Intake & Output 12/20/21 12/21/21 12/22/21
[2021-12-23] MEDS: SODIUM CHLORIDE 0.9% IV 1,000 ML 999 ML IV CONT (11:59)
[2021-12-23] MEDS: EPOETIN ALFA-EPBX 10,000 UNITS/ML VIAL 10000 UNITS IV PUSH (11:59)
[2021-12-23] MEDS: INSULIN ASPART (*BKC) 100 UNITS/ML SUB-Q (13:05)
[2021-12-23 13:10] LABS: Glucose Point of Care 292 mg/dl (65-105)
[2021-12-23] MEDS: NICOTINE (*PBKC) 14 MG PATCH 1 PATCH TRANSDERM (13:24)
[2021-12-23] MEDS: METOPROLOL SUCCINATE EXT REL 25 MG TABCR PO (13:25)
[2021-12-23] MEDS: ROSUVASTATIN 10 MG TABLET 40 MG PO (13:25)
[2021-12-23] MEDS: GABAPENTIN 300 MG CAPSULE PO (13:25)
[2021-12-23] MEDS: ASPIRIN 81 MG CHEWABLE TABLET PO (13:25)
[2021-12-23] MEDS: FUROSEMIDE 80 MG TABLET PO ×2 (13:25→17:07)
[2021-12-23] MEDS: TAMSULOSIN HCL 0.4 MG CAPSULE PO (13:25)
--- NOTE | 2021-12-23 16:13 | PM.DS ---
DS: Discharge Diagnosis Discharge Diagnosis (1) Hypertension: Code(s): I10 - Essential (primary) hypertension Status: Chronic Assessment and Plan: Continue home medications. Monitor blood pressure (2) Hyperkalemia: Code(s): E87.5 - Hyperkalemia Status: Chronic Assessment and Plan: Status post dialysis. Hyperkalemia now resolved (3) Generalized weakness: Code(s): R53.1 - Weakness Status: Acute Assessment and Plan: Possibly worsened by hyperkalemia. PTOT. (4) ESRD (end stage renal disease): Code(s): N18.6 - End stage renal disease Status: Chronic Assessment and Plan: Nephrology following (5) Chronic pain: Code(s): G89.29 - Other chronic pain Status: Acute Assessment and Plan: Continue pain medication (6) CHF (congestive heart failure): Code(s): I50.9 - Heart failure, unspecified Status: Acute Assessment and Plan: Compensated (7) CAD (coronary artery disease): Code(s): I25.10 - Atherosclerotic heart disease of [place] coronary artery without angina pectoris Status: Acute Assessment and Plan: Monitor, no chest pain (8) Dyslipidemia: Code(s): E78.5 - Hyperlipidemia, unspecified Status: Acute Assessment and Plan: Monitor, continue home meds (9) Tibia fracture: Code(s): S82.209A - Unspecified fracture of shaft of unspecified tibia, initial encounter for closed fracture Status: Acute Assessment and Plan: Patient has a brace on currently. Ortho consult (10) Left hip pain: Code(s): M25.552 - Pain in left hip Status: Acute Assessment and Plan: CT shows comminuted nondisplaced fracture. Ortho consult. Bedrest for now. DS: Summary Time Spent with Patient Time attestation: Total time spent providing and/or coordinating discharge services: DS: Data Data Completed and Pending Labs on day of discharge: Labs from last 24 hours 12/23/21 12/23/21 12/23/21 13:01 07:33 04:33 WBC RBC Hgb Hct MCV MCH MCHC RDW Plt Count MPV Sodium 133 L Potassium 5.2 H Chloride 87 L Carbon Dioxide 28 Anion Gap 18 H BUN 85 H D Creatinine 6.70 H Estim Creat Clear Calc 13 Estimated GFR 9 L Glucose 354 H POC Capillary Glucose 292 H 412 H Calcium 7.9 L Phosphorus 7.2 H Albumin 3.5 12/23/21 12/22/21 12/22/21 04:33 20:16 16:26 WBC 12.2 H RBC 2.88 L Hgb 9.2 L Hct 27.6 L MCV 95.8 MCH 31.9 MCHC 33.3 RDW 13.5 Plt Count 230 MPV 9.9 Sodium Potassium Chloride Carbon Dioxide Anion Gap BUN Creatinine Estim Creat Clear Calc Estimated GFR Glucose POC Capillary Glucose 363 H 337 H Calcium Phosphorus Albumin Discharge Plan Discharge Consulting providers: Garcia Deutsch ; Anuel Kapoor Patient Disposition: Home Health Service Discharge Instructions: Per Care Coordination. Patient to have [facility] for RN/PT/OT eval and treat #[phone]. They will contact patient to schedule first visit. Patient Instructions: Antibiotic Form, Heart Failure (DC), How to Stop Smoking (DC), Dialysis Diet (DC), Hyperkalemia (DC), Wound Healing and Your Diet (DC), End Stage Kidney Disease (DC), Hemodialysis (DC) Stand Alone Forms: General Discharge Information Discharge Medications: No Action gabapentin 300 mg capsule 300 mg PO DAILY furosemide [Lasix] 80 mg Tablet 80 mg PO TID levothyroxine 50 mcg Tablet 50 mcg PO DAILY dextroamphetamine-amphetamine 20 mg Tablet 20 mg PO BID Tresiba FlexTouch U-100 100 unit/mL (3 mL) insulin pen 38 unit SUBCUT DAILY tamsulosin 0.4 mg capsule 0.4 mg PO DAILY insulin lispro [Humalog KwikPen Insulin] 100 unit/mL insulin pen 1 sliding scale dose subcut TIDWM azelastine 137 mcg (0.
--- NOTE | 2021-12-23 16:16 | PM.IMPN ---
Progress Note: A&P Assessment and Plan (1) Hypertension: Code(s): I10 - Essential (primary) hypertension Status: Chronic Assessment and Plan: 12/23/2021 interval history: patient is a 56-year-old male with history of end-stage renal disease on hemodialysis presented emergency depart with complains of generalized weakness which patient attributes to elevated potassium, upon arrival patient potassium level 6.5 seen by Nephrology suspect patient is not following renal diet patient was given Lokelma and had dialysis and patient potassium has improved, patient continued to complain pain in left lower extremity, status post fall while in [place] x-ray showed fracture patient states he has not been weight bearing on the foot, CT scan of the hip showed comminuted, minimally displaced fracture of the superior portion of the left greater trochanter. patient be seen by orthopedic and further recommendation to follow. patient be seen by Nephrology and patient will have scheduled dialysis. (2) Hyperkalemia: Code(s): E87.5 - Hyperkalemia Status: Chronic Assessment and Plan: most likely secondary to noncompliance dietary restriction patient is given Lokelma and will have a scheduled dialysis (3) Generalized weakness: Code(s): R53.1 - Weakness Status: Acute Assessment and Plan: most likely secondary to hyperkalemia and fracture of the left hip (4) ESRD (end stage renal disease): Code(s): N18.6 - End stage renal disease Status: Chronic Assessment and Plan: seen nephrology will have a scheduled dialysis (5) Chronic pain: Code(s): G89.29 - Other chronic pain Status: Acute Assessment and Plan: will continue home regimen (6) CHF (congestive heart failure): Code(s): I50.9 - Heart failure, unspecified Status: Acute (7) CAD (coronary artery disease): Code(s): I25.10 - Atherosclerotic heart disease of [place] coronary artery without angina pectoris Status: Acute (8) Dyslipidemia: Code(s): E78.5 - Hyperlipidemia, unspecified Status: Acute (9) Tibia fracture: Code(s): S82.209A - Unspecified fracture of shaft of unspecified tibia, initial encounter for closed fracture Status: Acute (10) Left hip pain: Code(s): M25.552 - Pain in left hip Status: Acute Subjective Date/time seen: 12/23/21 16:16 12/23/2021 interval history: patient is a 56-year-old male with history of end-stage renal disease on hemodialysis presented emergency depart with complains of generalized weakness which patient attributes to elevated potassium, upon arrival patient potassium level 6.5 seen by Nephrology suspect patient is not following renal diet patient was given Lokelma and had dialysis and patient potassium has improved, patient continued to complain pain in left lower extremity, status post fall while in [place] x-ray showed fracture patient states he has not been weight bearing on the foot, CT scan of the hip showed comminuted, minimally displaced fracture of the superior portion of the left greater trochanter. patient be seen by orthopedic and further recommendation to follow. patient be seen by Nephrology and patient will have scheduled dialysis. Review of Systems Review of Systems: Negative except as stated in HPI Exam Narrative: Patient is comfortable, NAD HEENT: eyes are clear and none icteric LUNGS: normal respiratory effort ABD: not distended Lower extremities: no edema SKIN: nonjaundiced Neuro: grossly intact. Objective Data Vital Signs Vital Signs: Vital Signs - 24 hr 12/22/21 18:00 12/22/21 20:00 12/22/21 20:00 Temperature 98.3 F Pulse Rate 70 80 80 Respiratory Rate 16 Blood Pressure 164/78 H Pulse Oximetry 96 Oxygen Delivery 12/22/21 20:00 12/22/21 22:00 12/22/21 21:45 Temperature Pulse Rate 80 83 Respiratory Rate 16 Blood Pressure Pulse Oxi
[2021-12-23 16:30] LABS: Glucose Point of Care 399 mg/dl (65-105)
--- NOTE | 2021-12-23 16:47 | PM.CNOR ---
Assessment and Plan Assessment and plan (1) Fracture of proximal end of left fibula: Qualifiers: Encounter type: initial encounter Fracture type: closed Fracture morphology: unspecified fracture morphology Qualified Code(s): S82.832A - Other fracture of upper and lower end of left fibula, initial encounter for closed fracture Code(s): S82.832A - Other fracture of upper and lower end of left fibula, initial encounter for closed fracture Status: Acute (2) Fracture of greater trochanter of left femur: Qualifiers: Encounter type: initial encounter Fracture type: closed Fracture alignment: nondisplaced Qualified Code(s): S72.115A - Nondisplaced fracture of greater trochanter of left femur, initial encounter for closed fracture Code(s): S72.112A - Displaced fracture of greater trochanter of left femur, initial encounter for closed fracture Status: Acute Plan Nondisplaced greater trochanter fracture of the left hip, and proximal fibula fracture. Subacute presentation. Healing well without displacement. The fractures may be treated non operatively. May partial weight bear with a walker. Use the knee brace when ambulating. Increased healing time expected due to renal disease. Follow up with x-rays in one month. History of Present Illness HPI Consult date: 12/23/21 Chief complaint: hyperkalemia,generalized weakness,esrd Narrative: 56-year-old male complains of pain at the lateral aspect of the knee and hip. Fell two weeks ago while in [place]. Treated with a knee brace. He has been partial weight bearing with a walker. Review of Systems Review of Systems: All systems reviewed & are unremarkable except as noted in HPI and below PMFSH Past Medical History Medical History Anxiety and depression Asthma CAD (coronary artery disease) s/p stent placement to ostial LAD and to mid RCA with Impella support Cardiomyopathy Ischemic CHF (congestive heart failure) Diabetes mellitus Dyslipidemia End stage chronic kidney disease Essential (primary) hypertension History of alcoholism History of CVA (cerebrovascular accident) Hx of fracture of pelvis PAD (peripheral artery disease) Moderate to severe on the right lower extremity Surgical History Surgical History H/O nasal septoplasty History of carpal tunnel release History of incision and drainage complex I&D left buttock abscess 4x3x3 cm 08/21/21 Radial fracture Right great toe amputee Status post ORIF of fracture of ankle Family History Family History Other Adopted Social History Social History Social History: Patient lives at home with his . He has 4 children. Three of the children are grown adults. One child has . He still smokes 1 pack per day for the past 40 years. He quit alcohol about 10 years ago but used to be heavy alcohol consumer. He denies drug use. He is a full code. He nominates his to be the individual would make medical decisions for him if he is unable. Smoking packs per day: 2 Smoking cigarettes per day: 40.0 Years smoked: 43 Smoking pack-years: 86.00 Smoking status: Heavy tobacco smoker Tobacco type: cigarettes Second hand tobacco smoke exposure: No Alcohol intake: former Substance use: former Substance use type: does not use Gender identity (if verbalized by the patient): Male Spiritual care concerns: No Meds Home Medications and Allergies Home Medications Medication Instructions Recorded Confirmed Type azelastine 137 mcg (0.1 %) nasal 2 spray intranasal Q12H PRN 08/19/21 12/20/21 History spray aerosol Allergy Symptoms dextroamphetamine-amphetamine 20 20 mg PO BID 08/19/21 12/20/21 History mg tablet furosemide 80 mg
[2021-12-23] MEDS: SILVERGEL (ELTA) 45 ML 1 APPLIC TOPICAL (17:08)
[2021-12-23 18:46] LABS: Glucose Point of Care 494 mg/dl (65-105)
[2021-12-23] MEDS: INSULIN ASPART (*BKC) 100 UNITS/ML 12 UNITS SUB-Q (19:00)
[2021-12-23 20:25] LABS: Glucose Point of Care 450 mg/dl (65-105)
[2021-12-23] MEDS: AZELASTINE HCL NASAL 0.1% 137 MCG/SPR 30 ML BTL 2 SPRAY NASAL (20:38)
[2021-12-23 23:26] LABS: Glucose Point of Care 319 mg/dl (65-105)
[2021-12-24] VITALS (8 sets, daily range): BP systolic 139–178; BP diastolic 56–77; PULSE 78–86; RESP 16–20; TEMP 36.2–36.6; O2SAT 94–97
[2021-12-24] MEDS: HYDROcodone/acetaminophen (*CRX) 5-325 MG TABLET 1 TAB PO ×2 (02:17→08:23)
[2021-12-24 04:43] LABS: Hematocrit 27.1 % (42.0-52.0); Hemoglobin 8.7 g/dL (14.0-18.0); Mean Corpuscular HGB Conc 32.1 g/dl (32-36); Mean Corpuscular Hemoglobin 31.3 pg (26-34); Mean Corpuscular Volume 97.5 fl (80-100); Mean Platelet Volume 9.6 fl (7.4-10.4); Platelet Count Result 209 k/mm3 (150-375); Red Blood Count 2.78 M/mm3 (4.6-6.20); Red Cell Distribution Width 13.7 % (11.5-14.5); White Blood Count 12.5 K/mm3 (4.5-10.0)
[2021-12-24 04:59] LABS: Anion Gap 6 mmol/L (8-16); Blood Urea Nitrogen 53 mg/dL (9-20); Calcium 7.8 mg/dL (8.4-10.2); Carbon Dioxide 35 mmol/L (22-30); Chloride 93 mmol/L (98-107); Estimated CRCL calculation 22 ml/min; Estimated Glomerular Filt Rate 16; Glucose 324 mg/dL (65-110); Phosphorus 4.1 mg/dL (2.5-4.5); Potassium 5.2 mmol/L (3.4-5.0); Sodium 134 mmol/L (137-145)
[2021-12-24] MEDS: LEVOTHYROXINE SODIUM 50 MCG TABLET PO (05:49)
[2021-12-24 08:17] LABS: Glucose Point of Care 372 mg/dl (65-105)
[2021-12-24] MEDS: GABAPENTIN 300 MG CAPSULE PO (08:24)
[2021-12-24] MEDS: TAMSULOSIN HCL 0.4 MG CAPSULE PO (08:24)
[2021-12-24] MEDS: ASPIRIN 81 MG CHEWABLE TABLET PO (08:24)
[2021-12-24] MEDS: AZELASTINE HCL NASAL 0.1% 137 MCG/SPR 30 ML BTL 2 SPRAY NASAL (08:24)
[2021-12-24] MEDS: ROSUVASTATIN 10 MG TABLET 40 MG PO (08:24)
[2021-12-24] MEDS: METOPROLOL SUCCINATE EXT REL 25 MG TABCR PO (08:24)
[2021-12-24] MEDS: FUROSEMIDE 80 MG TABLET PO ×2 (08:25→12:07)
[2021-12-24] MEDS: SILVERGEL (ELTA) 45 ML 1 APPLIC TOPICAL (08:25)
[2021-12-24] MEDS: NICOTINE (*PBKC) 14 MG PATCH 1 PATCH TRANSDERM (08:25)
[2021-12-24] MEDS: INSULIN ASPART (*BKC) 100 UNITS/ML SUB-Q ×2 (08:30→12:06)
--- NOTE | 2021-12-24 11:01 | PM.PNNEP ---
Progress Note: A&P Assessment and Plan (1) ESRD (end stage renal disease): Code(s): N18.6 - End stage renal disease Status: Chronic Assessment and Plan: HD Due tomorrow Doing well on the machine potassium is doing okay because he is on a renal diet now. (2) Hyperkalemia: Code(s): E87.5 - Hyperkalemia Status: Chronic Assessment and Plan: chronic issue from review of records felt to be related to dietary indiscretion based on past evaluation he has Lokelma at home. He has been on a 1 K bath for an hour for treatments and his potassium has been okay. In [place] they did not have a 1 K bath so the did him on a 2 K bath which is why his potassium was high again. I suggested that he take the lokelma with him if he goes on vacation and he can take it if they do not have a 1 K bath. (3) Generalized weakness: Code(s): R53.1 - Weakness Status: Acute Assessment and Plan: s/p recent fall when out of town X-rays on admission noted Improved. On partial weight-bearing per Ortho. (4) Hypertension: Code(s): I10 - Essential (primary) hypertension Status: Chronic Assessment and Plan: systolic is high. Will remove fluid and see how it does. (5) Anemia: Code(s): D64.9 - Anemia, unspecified Status: Chronic Assessment and Plan: due to ESRD Epogen with HD Hemoglobin slowly rising (6) IDDM (insulin dependent diabetes mellitus): Status: Chronic Assessment and Plan: On Accu-Cheks and sliding-scale insulin per hospitalist. Subjective Date/time seen: 12/24/21 11:01 Interval history: Jesus feels better today. He did well for the rest of his dialysis yesterday. Eager for discharge. Exam Narrative: General: WD/WN male in NAD Heart: normal S1 and S2; no rub or gallop Lungs: clear Abdomen: soft, nontender, nondistended, positive bowel sounds Extremities: no edema Skin: no rash or subcu nodules. Objective Data Vital Signs Vital Signs: Vital Signs - 24 hr 12/23/21 11:20 12/23/21 11:40 12/23/21 12:00 Temperature Pulse Rate 80 85 82 Respiratory Rate Blood Pressure 177/90 H 186/96 H Pulse Oximetry Oxygen Delivery 12/23/21 12:00 12/23/21 12:00 12/23/21 13:25 Temperature 36.4 C L Pulse Rate 86 90 Respiratory Rate 14 Blood Pressure 174/73 H Pulse Oximetry 96 Oxygen Delivery Room Air 12/23/21 14:00 12/23/21 12:00 12/23/21 12:32 Temperature 36.4 C L Pulse Rate 96 83 83 Respiratory Rate 16 Blood Pressure 160/92 H 195/98 H Pulse Oximetry Oxygen Delivery 12/23/21 12:20 12/23/21 16:00 12/23/21 16:00 Temperature 36.6 C Pulse Rate 81 88 88 Respiratory Rate 14 Blood Pressure 177/93 H 172/67 H Pulse Oximetry 94 Oxygen Delivery 12/23/21 16:00 12/23/21 18:00 12/23/21 19:52 Temperature 36.9 C Pulse Rate 89 84 Respiratory Rate 14 Blood Pressure 175/69 H Pulse Oximetry 98 Oxygen Delivery Room Air 12/23/21 20:00 12/23/21 20:00 12/23/21 22:00 Temperature Pulse Rate 86 85 Respiratory Rate Blood Pressure Pulse Oximetry Oxygen Delivery Room Air 12/23/21 23:38 12/23/21 23:55 12/24/21 00:00 Temperature 36.4 C Pulse Rate 88 88 86 Respiratory Rate 16 16 Blood Pressure 169/64 H Pulse Oximetry 94 94 Oxygen Delivery Room Air 12/24/21 02:00 12/24/21 04:00 12/24/21 04:00 Temperature Pulse Rate 85 78 78 Respiratory Rate 16 Blood Pressure Pulse Oximetry 94 Oxygen Delivery Room Air 12/24/21 04:00 12/24/21 05:53 12/24/21 08:24 Temperature 36.6 C Pulse Rate 84 86 80 Respiratory Rate 16 Blood Pressure 139/56 L Pulse Oximetry 97 Oxygen Delivery 12/24/21 08:00 Temperature 36.4 C Pulse Rate 79 Respiratory Rate 18 Blood Pressure 173/77 H Pulse Oximetry 96 Oxygen Delivery Intake/Output Intake/Output: Intake & Output
[2021-12-24 12:08] LABS: Glucose Point of Care 330 mg/dl (65-105)
--- NOTE | 2021-12-24 12:25 | PM.DS ---
DS: Admitting Diagnosis Discharge Date December 24, 2021 Admitting Diagnosis hyperkalemia, end-stage renal disease, hip fracture DS: Discharge Diagnosis Discharge Diagnosis (1) Hypertension: Code(s): I10 - Essential (primary) hypertension Status: Chronic Assessment and Plan: Continue home medications. Monitor blood pressure (2) Hyperkalemia: Code(s): E87.5 - Hyperkalemia Status: Chronic Assessment and Plan: Status post dialysis. Hyperkalemia now resolved (3) Generalized weakness: Code(s): R53.1 - Weakness Status: Acute Assessment and Plan: Possibly worsened by hyperkalemia. PTOT. (4) ESRD (end stage renal disease): Code(s): N18.6 - End stage renal disease Status: Chronic Assessment and Plan: Nephrology following (5) Chronic pain: Code(s): G89.29 - Other chronic pain Status: Acute Assessment and Plan: Continue pain medication (6) CHF (congestive heart failure): Code(s): I50.9 - Heart failure, unspecified Status: Acute Assessment and Plan: Compensated (7) CAD (coronary artery disease): Code(s): I25.10 - Atherosclerotic heart disease of [place] coronary artery without angina pectoris Status: Acute Assessment and Plan: Monitor, no chest pain (8) Dyslipidemia: Code(s): E78.5 - Hyperlipidemia, unspecified Status: Acute Assessment and Plan: Monitor, continue home meds (9) Tibia fracture: Code(s): S82.209A - Unspecified fracture of shaft of unspecified tibia, initial encounter for closed fracture Status: Ruled-out Assessment and Plan: Patient has a brace on currently. Ortho consult (10) Left hip pain: Code(s): M25.552 - Pain in left hip Status: Acute Assessment and Plan: CT shows comminuted nondisplaced fracture. Ortho consult. Bedrest for now. DS: Summary Hospital Course Hospital Course: patient is a 56-year-old male with history of end-stage renal disease he was on vacation in [place] and had a fall and developed a hip fracture and also a tibial fracture. He also did not get appropriate dialysis treatment down there despite going to the dialysis center. They apparently did not use the appropriate K bath. Nonetheless he should adhere with weakness and pain in his left leg and also hyperkalemia was noted. Patient received hemodialysis and improved with respect to his electrolytes. He can be discharged he is going to follow-up with orthopedics regarding his ongoing hip and knee issue. They were consulted in this hospitalization did not recommend any surgery at this time. Pain medicine was given to the patient for few days. Time Spent with Patient Time attestation: Total time spent providing and/or coordinating discharge services: Exam Narrative: Patient is comfortable, NAD HEENT: eyes are clear and none icteric LUNGS: normal respiratory effort ABD: not distended Lower extremities: no edema SKIN: nonjaundiced Neuro: grossly intact. DS: Data Data Completed and Pending Labs on day of discharge: Labs from last 24 hours 12/24/21 12/24/21 12/24/21 11:50 08:13 04:18 WBC RBC Hgb Hct MCV MCH MCHC RDW Plt Count MPV Sodium 134 L Potassium 5.2 H Chloride 93 L Carbon Dioxide 35 H Anion Gap 6 L BUN 53 H D Creatinine 3.80 H Estim Creat Clear Calc 22 Estimated GFR 16 L Glucose 324 H POC Capillary Glucose 330 H 372 H Calcium 7.8 L Phosphorus 4.1 Albumin 3.0 L 12/24/21 12/23/21 12/23/21 04:12 23:12 20:23 WBC 12.5 H RBC 2.78 L Hgb 8.7 L Hct 27.1 L MCV 97.5 MCH 31.3 MCHC 32.1 RDW 13.7 Plt Count 209 MPV 9.6 Sodium Potassium Chloride Carbon Dioxide Anion Gap BUN Creatinine Estim Creat Clear Calc Estimated GFR Glucose POC Capillary Glucose 319
== END 2021-12-24 14:50 | disposition home health service (06) | DRG 640 ==
LOC: ANHED 06:07 → ANHIMU 08:08
PROVIDERS: Family Medicine; Internal Medicine; Internal Medicine Nephrology; Admitting Provider Chiropractor; Emergency Provider Emergency Medicine; PCP Internal Medicine; Visit Provider Chiropractor
DX: E87.5 Hyperkalemia (principal); N18.6 End stage renal disease; I13.2 Hypertensive heart and chronic kidney disease with heart failure and with stage 5 chronic kidney disease, or end stage renal disease; E11.22 Type 2 diabetes mellitus with diabetic chronic kidney disease; E11.51 Type 2 diabetes mellitus with diabetic peripheral angiopathy without gangrene; S82.832D Other fracture of upper and lower end of left fibula, subsequent encounter for closed fracture with routine healing; S72.112D Displaced fracture of greater trochanter of left femur, subsequent encounter for closed fracture with routine healing; S82.65XD Nondisplaced fracture of lateral malleolus of left fibula, subsequent encounter for closed fracture with routine healing; I50.9 Heart failure, unspecified; I25.5 Ischemic cardiomyopathy; I25.10 Atherosclerotic heart disease of native coronary artery without angina pectoris; J45.909 Unspecified asthma, uncomplicated; D63.1 Anemia in chronic kidney disease; E78.5 Hyperlipidemia, unspecified; F41.9 Anxiety disorder, unspecified; F17.210 Nicotine dependence, cigarettes, uncomplicated; F32.A Depression, unspecified; F10.21 Alcohol dependence, in remission; W19.XXXD Unspecified fall, subsequent encounter; Z99.2 Dependence on renal dialysis; Z79.4 Long term (current) use of insulin; Z86.73 Personal history of transient ischemic attack (TIA), and cerebral infarction without residual deficits; Z89.411 Acquired absence of right great toe
CPT/HCPCS: 36415; 71045; 73130; 73502; 73562; 73610; 73700; 80048; 80053; 80069; 82948; 83605; 83735; 84132; 84145; 84484; 85025; 85027; 86706; 87340; 93005; 96374; 96375; 99285; A9270; G0257; G0378; J0610; J1815; J2270; J7030; L1830; Q5105

== ENCOUNTER 2022-02-25 13:19 | Outpatient (CLI) | payer MEDICARE, SELFPAY ==
--- NOTE | ~2022-02-25 | XR_ITS ---
EXAMINATION: XR foot RT min 3V DATE: 02/25/2022 13:40 INDICATION: Right foot infection of skin and subcutaneous tissue. TECHNIQUE: 4 views of right foot were obtained. COMPARISON: Right foot radiographs 02/18/2017, 12/11/2016 FINDINGS: There is an intra-articular oblique fracture of base of fifth metatarsal. The distal fractu re fragment demonstrates 2 mm medial displacement. Sclerosis of the fracture margins suggests the fra cture is not acute. There is amputation at first metatarsophalangeal joint. There is a comminuted fra cture of head and neck of second metatarsal. A portion of the articular surface demonstrates 7 mm pro ximal displacement. There is sclerosis at some of the fracture margins suggesting the fracture is not acute. There is likely a healed fracture deformity involving head of third metatarsal. There is lesa re osteoarthritis of second and third tarsometatarsal joints. There is mild osteoarthritis of some of the midfoot joints and interphalangeal joints. There is severe posttraumatic osteoarthritis of secon d metatarsophalangeal joint. There are enthesophytes at the posterior and plantar aspects of calcanea l tuberosity. There is an ulcer lateral to diaphysis of fifth metatarsal. IMPRESSION: 1. No specific evidence of osteomyelitis. 2. Fracture of base of fifth metatarsal, likely subacute or chronic. 3. Comminuted fracture of head and neck of second metatarsal, likely subacute or chronic. 4. Polyarticular osteoarthritis. Reviewed, dictated and finalized at location A. GER COLLECTION IMPRESSION: 1. No specific evidence of osteomyelitis. 2. Fracture of base of fifth metatarsal, likely subacute or chronic. 3. Comminuted fracture of head and neck of second metatarsal, likely subacute o r chronic. 4. Polyarticular osteoarthritis.
== END 2022-02-25 13:20 | disposition home or self-care (01) ==
PROVIDERS: PCP Internal Medicine; Visit Provider Internal Medicine
DX: L08.9 Local infection of the skin and subcutaneous tissue, unspecified (principal); S92.351A Displaced fracture of fifth metatarsal bone, right foot, initial encounter for closed fracture; S92.321A Displaced fracture of second metatarsal bone, right foot, initial encounter for closed fracture; M19.071 Primary osteoarthritis, right ankle and foot
CPT/HCPCS: 73630

== ENCOUNTER 2022-03-27 13:09 | Outpatient (CLI) | payer MEDICARE, SELFPAY ==
--- NOTE | ~2022-03-27 | XR_ITS ---
XR chest 2V DATE: 03/27/2022 13:28 INDICATION: Cough TECHNIQUE: AP and lateral views COMPARISON: 12/20/2021 portable AP chest FINDINGS: Cardiomegaly. Aortic arch calcification. Small bilateral pleural effusions. Mild infiltrate or atelectasis in the lower lung zones. Osteopenia. IMPRESSION: Cardiomegaly, small pleural effusions and bilateral lower lung infiltrate or atelectasis. Infiltrates and right pleural effusion are mildly improved since 12/20/2021 Osteopenia Reviewed, dictated and finalized at location B. D SPECIALIST IMPRESSION: Cardiomegaly, small pleural effusions and bilateral lower lung infi ltrate or atelectasis. Infiltrates and right pleural effusion are mildly improv ed since 12/20/2021 Osteopenia
== END 2022-03-27 13:10 | disposition home or self-care (01) ==
PROVIDERS: PCP Internal Medicine; Visit Provider Internal Medicine
DX: R05.9 Cough, unspecified (principal); I51.7 Cardiomegaly; J90 Pleural effusion, not elsewhere classified; R91.8 Other nonspecific abnormal finding of lung field
CPT/HCPCS: 71046

== ENCOUNTER 2022-04-02 14:01 | Outpatient (CLI) | payer MEDICARE, SELFPAY ==
--- NOTE | ~2022-04-02 | US_ITS ---
EXAMINATION: US art doppler w press LE BI DATE: 04/02/2022 15:14 INDICATION: Bilateral lower limb peripheral arterial occlusive disease. Claudication. TECHNIQUE: Segmental pressures and plethysmographic and Doppler waveforms of the brachial and lower e xtremity arteries were obtained. COMPARISON: None. FINDINGS: Right brachial artery pressures of 162 mm Hg . Left brachial artery pressures unable to be obtained d ue to a dialysis fistula in the left arm. The right and left high-thigh pressure indices unable to be a obtained due to inability to occlude the vessels throughout either lower limb with the exception o f the right dorsalis pedis artery. The right ankle-brachial index (JELLY) is at least 0.72 (normal >= 0.9-1) with pressures unable to be o btained at the right posterior tibial artery. The right great toe-brachial index (TBI) is unable to b e obtained due to amputation of the right great toe (normal >= 0.6-0.8). Arterial waveforms are bipha sic with borderline delayed upstrokes at the right common femoral artery and with brisk systolic upst rokes in the more distal arteries. The left JELLY is unable to be obtained due to inability to occlude the vessels at the left ankle. The left TBI is 0.36. Arterial waveforms are biphasic with brisk systolic upstrokes throughout the arteri es of the left lower limb. IMPRESSION: 1. Arterial occlusive disease with moderately decreased left TBI and mildly decreased right JELLY, blad [place]ques based upon only the right dorsalis pedis artery. The right posterior tibial and left dorsalis ped is and posterior tibial arteries all with the more proximal arteries in both lesions are unable to be occluded. Reviewed, dictated and finalized at location A. DER LABORER IMPRESSION: 1. Arterial occlusive disease with moderately decreased left TBI and mildly dec reased right JELLY, bladder based upon only the right dorsalis pedis artery. The right posterior tibial and left dorsalis pedis and posterior tibial arteries al l with the more proximal arteries in both lesions are unable to be occluded.
== END 2022-04-02 14:02 | disposition home or self-care (01) ==
PROVIDERS: PCP Internal Medicine; Visit Provider Podiatrist Foot & Ankle Surgery
DX: I73.9 Peripheral vascular disease, unspecified (principal)
CPT/HCPCS: 93923

== ENCOUNTER 2022-04-24 08:44 | Outpatient (CLI) | payer MEDICARE, SELFPAY ==
--- NOTE | ~2022-04-24 | CT_ITS ---
EXAMINATION: CTA abd aorta runoff DATE: 04/24/2022 09:32 INDICATION: Claudication of bilateral lower extremities. TECHNIQUE: Computed tomographic angiography (CTA) of the abdominal, pelvis, and both lower extremitie s was performed with 150 mL Omnipaque-350 intravenous contrast. Automated exposure control and iterat maria d reconstruction technique were employed. The dose-length product was 1488.91 mGy-cm. Maximum inten sity projection 3D-reconstructions of the arteries were created by the technologist on a separate wor kstation. COMPARISON: Arterial Doppler and segmental pressures 04/02/2022 FINDINGS: ABDOMINAL AORTA AND ITS BRANCHES: There is aortic atherosclerosis. No aneurysm or dissection. There is no significant stenosis of juan c axis, superior mesenteric artery, inferior mesenteric artery, or right renal artery. There is moder ate stenosis of left renal artery. PELVIC VASCULATURE: There is no significant stenosis of the common iliac arteries, external iliac arteries, or internal i liac arteries. RIGHT LOWER EXTREMITY VASCULATURE: There is no significant stenosis of right common femoral artery, profunda femoral artery, or superfic ial femoral artery. There is severe stenosis of below knee popliteal artery. Arterial calcifications decrease sensitivity and specificity in the lower leg arteries. There is severe stenosis of tibiopero khoa trunk. There is no significant stenosis of the posterior tibial artery. There is moderate to sev ere stenosis of right anterior tibial artery. There is total occlusion of mid right peroneal artery. LEFT LOWER EXTREMITY VASCULATURE: There is no significant stenosis of common femoral artery, profunda femoral artery, or superficial fe moral artery. There is moderate stenosis of below-knee popliteal artery. Arterial calcifications decr ease sensitivity and specificity in the lower leg arteries. There is severe stenosis of proximal ante rior tibial artery. There is moderate stenosis of tibioperoneal trunk. There is no significant stenos is of posterior tibial artery. There is total occlusion of mid peroneal artery. ADDITIONAL FINDINGS: The visualized portions of the lung bases demonstrate mild atelectasis. There is a moderate-sized rig ht pleural effusion. Cardiomegaly is noted. There are coronary artery calcifications. No pericardial effusion. The liver, gallbladder, spleen, pancreas, adrenal glands, and kidneys are normal. There is diverticulosis of the colon without evidence of diverticulitis. There are no dilated loops of bowel. There are no pathologically enlarged lymph nodes. There is no free intraperitoneal fluid. There is mi ld lumbar spondylosis. There is a chronic compression fracture of L1 vertebral body. IMPRESSION: 1. Moderate stenosis of left renal artery. 2. Severe stenosis of right below-knee popliteal artery and tibioperoneal trunk. 3. Moderate to severe stenosis of right anterior tibial artery. Total occlusion of mid right peroneal artery. Two-vessel runoff on the right. 4. Moderate stenosis of left below-knee popliteal artery and tibioperoneal trunk. 5. Severe stenosis of proximal left anterior tibial artery. Total occlusion of mid peroneal artery. T wo-vessel runoff on the left. 6. Moderate-sized right pleural effusion. Reviewed, dictated and finalized at location A. R HELPER IMPRESSION: 1. Moderate stenosis of left renal artery. 2. Severe stenosis of right below-knee popliteal artery and tibioperoneal trunk . 3. Moderate to severe stenosis of right anterior tibial artery. Total occlusion of mid right peroneal artery. Two-vessel runoff on the right. 4. Moderate stenosis of left below-knee popliteal artery and tibioperoneal trun k. 5. Severe stenosis of proximal left anterior tibial artery. Total o
== END 2022-04-24 08:45 | disposition home or self-care (01) ==
PROVIDERS: PCP Internal Medicine; Visit Provider Internal Medicine Cardiovascular Disease
DX: I73.9 Peripheral vascular disease, unspecified (principal); I70.1 Atherosclerosis of renal artery; J90 Pleural effusion, not elsewhere classified
CPT/HCPCS: 75635; Q9967

== ENCOUNTER 2022-07-10 21:48 | Observation (INO) | payer MEDICARE, SELFPAY ==
--- NOTE | ~2022-07-10 | XR_ITS ---
XR chest 1V DATE: 07/10/2022 22:23 INDICATION: Weakness for a few days TECHNIQUE: AP chest COMPARISON: 03/27/2022 AP and lateral chest FINDINGS: Cardiomegaly. Aortic arch calcification. There is pulmonary vascular congestion and redistribution. Moderately large right and mild left pleural effusion. There is infiltrate or atelectasis in the lowe r lung zones, right greater than left. Diffuse osteopenia. IMPRESSION: Congestive heart failure Bilateral pleural effusions, moderately large on the right, mild on the left, with bilateral lower jennifer ng infiltrate and/atelectasis, also greater on the right Reviewed, dictated and finalized at location A. IMPRESSION: Congestive heart failure Bilateral pleural effusions, moderately large on the right, mild on the left, w ith bilateral lower lung infiltrate and/atelectasis, also greater on the right
[2022-07-10 21:48] VITALS: BP 168/88; PULSE 65; RESP 19; TEMP 34.4; O2SAT 94
--- NOTE | 2022-07-10 22:04 | ECG_ITS ---
Measurements Intervals [place] Rate: 65 P: -25 [place]: 163 QRS: -59 QRSD: 164 T: 87 QT: 498 QTc: 519 Interpretive Statements SINUS RHYTHM WITH FIRST DEGREE AV BLOCK LEFT AXIS DEVIATION RIGHT BUNDLE BRANCH BLOCK INFERIOR INFARCT, AGE INDETERMINATE ABNORMAL ECG COMPARED TO ECG 12/20/2021 05:22:28 MYOCARDIAL INFARCT FINDING NOW PRESENT Electronically Signed On 07-11-2022 8:17:22 CDT by Reji Poon D.O.
--- NOTE | 2022-07-10 22:05 | PC.NURSE ---
Per RN can put several blankets on pt and check temp.
[2022-07-10 22:11] LABS: Glucose Point of Care 249 mg/dl (65-105)
--- NOTE | 2022-07-10 22:16 | ED.GENADULT ---
HPI - General Adult General Chief complaint: Weakness Stated complaint: weakness Time Seen by Provider: 07/10/22 22:02 History of Present Illness HPI narrative: Patient a 56-year-old gentleman who presents the emergency department with chief complaint of generalized weakness. Patient reports that he is a dialysis patient and goes to dialysis Wednesday patient states that on he was not feeling that well and did not go to dialysis the patient states since then he has been getting progressively weaker and now has difficulty lifting his legs up from gravity. Patient reports that this is similar to whenever he had hyperkalemia in the past. The patient also reports that he feels more swollen as he feels like he is building up water weight. Related Data Home Medications Medication Instructions Recorded Confirmed azelastine 137 mcg (0.1 %) nasal 2 spray intranasal Q12H PRN 08/19/21 04/01/22 spray aerosol Allergy Symptoms dextroamphetamine-amphetamine 20 20 mg PO BID 08/19/21 04/01/22 mg tablet furosemide 80 mg tablet (Lasix) 80 mg PO TID 08/19/21 04/01/22 insulin degludec 100 unit/mL (3 38 unit subcut DAILY 08/19/21 04/01/22 mL) subcutaneous pen (Tresiba FlexTouch U-100 insulin) insulin lispro 100 unit/mL 1 sliding scale dose subcut TIDWM 08/19/21 04/01/22 subcutaneous pen (Humalog KwikPen (U-100) Insulin) levothyroxine 50 mcg tablet 50 mcg PO DAILY 08/19/21 04/01/22 rosuvastatin 40 mg tablet 40 mg PO DAILY 08/19/21 04/01/22 gabapentin 300 mg capsule 300 mg PO DAILY 11/18/21 04/01/22 glucagon 3 mg/actuation nasal 3 mg intranasal DAILY PRN 11/19/21 04/01/22 spray (Baqsimi) Hypoglycemia metoprolol succinate 25 mg 25 mg PO DAILY 11/19/21 04/01/22 tablet,extended release 24 hr Allergies Allergy/AdvReac Type Severity Reaction Status Date / Time cantaloupe Allergy Severe ITCHING, Verified 03/31/22 13:37 SWOLLEN LIPS Review of Systems Review of Systems: A 10 system review of systems was completed on the patient and is negative except for what is stated in the HPI. Nursing and ancillary documentation was reviewed. [facility] Past Medical History Medical History Acute hyperkalemia Acute hyperkalemia Anxiety and depression Asthma BMI 29.0-29.9,adult CAD (coronary artery disease) s/p stent placement to ostial LAD and to mid RCA with Impella support Cardiomyopathy Ischemic CHF (congestive heart failure) Closed fracture of sacrum Diabetes mellitus Dyslipidemia End stage chronic kidney disease Essential (primary) hypertension Fracture of greater trochanter of left femur History of alcoholism History of CVA (cerebrovascular accident) Hx of fracture of pelvis Left hip pain Overweight (BMI 25.0-29.9) PAD (peripheral artery disease) Moderate to severe on the right lower extremity Sacral fracture Surgical History Surgical History H/O nasal septoplasty History of carpal tunnel release History of incision and drainage complex I&D left buttock abscess 4x3x3 cm 08/21/21 Radial fracture Right great toe amputee Status post ORIF of fracture of ankle Family History Family History Other Adopted Social History Social History Social History: Patient lives at home with his . He has 4 children. Three of the children are grown adults. One child has . He still smokes 1 pack per day for the past 40 years. He quit alcohol about 10 years ago but used to be heavy alcohol consumer. He denies drug use. He is a full code. He nominates his to be the individual would make medical decisions for him if he is unable. Smoking packs per day: 2 Smoking cigarettes per day: 40.0 Years smoked: 43 Smoking pack-years: 86.00 Sm
[2022-07-10 22:17] LABS: Basophils Percent Auto 0.5 % (0.2-1.2); Eosinophils Absolute Auto 0.1 K/mm3 (0-0.3); Hematocrit 33.8 % (42.0-52.0); Hemoglobin 11.2 g/dL (14.0-18.0); Immature Granulocyte Absolute 0.01 K/mm3 (0.00-0.031); Immature Granulocyte Percent A 0.2 % (0-0.5); Lymphocytes Absolute Auto 1.15 K/mm3 (0.9-3.2); Lymphocytes Percent Auto 17.5 % (18.3-44.2); Mean Corpuscular HGB Conc 33.1 g/dl (32-36); Mean Corpuscular Hemoglobin 30.7 pg (26-34); Mean Corpuscular Volume 92.6 fl (80-100); Monocytes Absolute Auto 0.4 K/mm3 (0.1-0.6); Monocytes Percent Auto 5.9 % (2.6-8.5); Neutrophils Absolute Auto 4.9 K/mm3 (1.3-6.7); Neutrophils Percent Auto 73.9 % (45.5-73.1); Platelet Count Result 146 k/mm3 (150-375); Red Blood Count 3.65 M/mm3 (4.6-6.20); Red Cell Distribution Width 14.6 % (11.5-14.5); White Blood Count 6.6 K/mm3 (4.5-10.0)
[2022-07-10 22:43] LABS: Lipase 135 U/L (23-300)
--- NOTE | 2022-07-10 22:43 | PC.NURSE ---
0465 RN went in to take oral temp and pts temp was 94.0 with two different oral thermometers RN asked to take rectal temperature and pt said hell no I don't want anyone going in my ass. made aware will continue to monitor pt.
[2022-07-10 22:45] LABS: INR 1.3; Lactic Acid Reflex 0.7 mmol/L (0.7-2.0); Partial Thromboplastin Time 33.4 SECONDS (22.3-36.8); Prothrombin Time 15.2 Seconds (11.1-14.7)
[2022-07-10 23:08] LABS: Influenza A QL RT-PCR Negative (Negative); Influenza B QL RT-PCR Negative (Negative); SARS-CoV-2 RNA PCR Negative
--- NOTE | 2022-07-10 23:35 | PC.NURSE ---
pt. dialysis pt. states cannot pee at this time.
[2022-07-10 23:43] VITALS: PULSE 60; RESP 20; TEMP 34.7; O2SAT 95
[2022-07-10 23:43] LABS: Procalcitonin 0.8 ng/mL
[2022-07-11] VITALS (53 sets, daily range): BP systolic 129–176; BP diastolic 70–104; PULSE 61–122; RESP 12–25; TEMP 34.7–36.6; O2SAT 90–99; BMI 29.7
[2022-07-11 00:49] LABS: Troponin I 0.034 ng/mL (0.000-0.034)
[2022-07-11 01:02] LABS: Alanine Aminotransferase 48 U/L (6-50); Albumin Level 4.2 g/dL (3.5-5.1); Alkaline Phosphatase 193 U/L (38-126); Anion Gap 15 mmol/L (8-16); Aspartate Amino Transferase 42 U/L (17-59); Bilirubin,Total 0.7 mg/dL (0.2-1.3); Blood Urea Nitrogen 115 mg/dL (9-20); Calcium 8.4 mg/dL (8.4-10.2); Carbon Dioxide 18 mmol/L (22-30); Chloride 95 mmol/L (98-107); Estimated CRCL calculation 12 ml/min; Estimated Glomerular Filt Rate 8; Glucose 227 mg/dL (65-110); Magnesium 2.7 mg/dL (1.6-2.3); Potassium 7.5 mmol/L (3.4-5.0); Sodium 128 mmol/L (137-145)
--- NOTE | 2022-07-11 01:19 | PM.IMHP ---
H&P: HPI History of Present Illness Date/Time: 07/11/22 01:19 Chief Complaint: Generalized weakness Narrative: This is a 56-year-old male with past medical history significant for end-stage renal disease on hemodialysis patient missed hemodialysis treatment 1 round due to feeling poorly, patient has been having diarrhea denies any nausea vomiting or fevers or cough or sputum production, upon presentation patient was found to have a potassium of 7.5. A chest x-ray was reported as: FINDINGS: Cardiomegaly. Aortic arch calcification. There is pulmonary vascular congestion and redistribution. Moderately large right and mild left pleural effusion. There is infiltrate or atelectasis in the lower lung zones, right greater than left. Diffuse osteopenia.? IMPRESSION: Congestive heart failure Bilateral pleural effusions, moderately large on the right, mild on the left, with bilateral lower lung infiltrate and/atelectasis, also greater on the right Review of Systems Review of Systems: Generalized weakness, missed dialysis Constitutional: Constitutional: Denies chills, Reports fatigue, Denies fever(s), Reports lethargy, Reports malaise, Reports poor appetite and Reports weakness Eyes: Eyes: Denies change in vision ENT: Denies dysphagia and Denies odynophagia Cardiovascular: Cardiovascular: Denies chest pain, Reports leg edema, Denies lightheadedness and Denies palpitations Respiratory: Respiratory: Denies chest congestion, Denies excessive phlegm production, Denies pain on inspiration, Denies dyspnea and Denies dyspnea on exertion Gastrointestinal: Gastrointestinal: Denies abdominal pain, Denies dyspepsia, Denies heartburn, Denies diarrhea, Denies nausea and Denies vomiting Genitourinary: Genitourinary: Denies dysuria Musculoskeletal: Musculoskeletal: Denies back pain, Denies joint swelling and Denies muscle weakness Integumentary/Breasts: Skin/Breast: Denies rash Neurologic: Denies focal weakness and Denies Sensory deficit (Neuro) Psychiatric: Psychiatric: Reports no additional psychiatric complaints and Reports as per HPI Endocrine: Endocrine: Denies cold intolerance, Denies flushing, Denies heat intolerance, Denies polyphagia, Denies polydipsia and Denies palpitations Hematologic/Lymphatic: Hematologic/Lymphatic: Reports no additional hematologic/lymphatic complaints and Reports as per HPI Allergic/Immunologic: Allergic/Immunologic: Reports no additional allergic/immunologic complaints and Reports as per HPI [facility] Past Medical History Medical History Acute hyperkalemia Acute hyperkalemia Anxiety and depression Asthma BMI 29.0-29.9,adult CAD (coronary artery disease) s/p stent placement to ostial LAD and to mid RCA with Impella support Cardiomyopathy Ischemic CHF (congestive heart failure) Closed fracture of sacrum Diabetes mellitus Dyslipidemia End stage chronic kidney disease Essential (primary) hypertension Fracture of greater trochanter of left femur History of alcoholism History of CVA (cerebrovascular accident) Hx of fracture of pelvis Left hip pain Overweight (BMI 25.0-29.9) PAD (peripheral artery disease) Moderate to severe on the right lower extremity Sacral fracture Surgical History Surgical History H/O nasal septoplasty History of carpal tunnel release History of incision and drainage complex I&D left buttock abscess 4x3x3 cm 08/21/21 Radial fracture Right great toe amputee Status post ORIF of fracture of ankle Family History Family History Other Adopted Social History Social History Social History: Patient lives at home with his . He has 4 children. Three of the children are grown adults. One child has . He still smokes 1 pack per day f
[2022-07-11] MEDS: INSULIN HUMAN REGULAR (*BKC) 100 UNITS/ML 10 UNITS IV PUSH ×2 (01:52→10:53)
[2022-07-11] MEDS: DEXTROSE 50% 25 GM/50 ML SYRINGE IV PUSH ×3 (01:53→18:19)
[2022-07-11] MEDS: CALCIUM GLUCONATE 1,000 MG/10 ML VIAL 1000 MG IV PUSH (01:58)
[2022-07-11] MEDS: SODIUM BICARBONATE 8.4% 50 MEQ/50 ML SYRINGE IV PUSH ×2 (02:11→09:09)
[2022-07-11 02:46] LABS: Troponin I 0.029 ng/mL (0.000-0.034)
[2022-07-11 03:28] LABS: Glucose Point of Care 211 mg/dl (65-105)
[2022-07-11 03:28] LABS: Glucose Point of Care 183 mg/dl (65-105)
--- NOTE | 2022-07-11 03:36 | PC.NURSE ---
This patient, Jesus Ceja, was admitted to IMU Room 213-01. Patient/family oriented to hospital policies and general routines including ID bracelet, bed and alarms, visiting hours, pain management, procedures, bathroom and other care routines, personal items, smoking policy, room service/diet, and visiting hours. Information on how to activate the Rapid Response Team has been discussed. Patient/Family are encouraged to report perceived risks to care and to ask questions if they do not understand what they are told or what they should do.
[2022-07-11 06:08] LABS: Anion Gap 16 mmol/L (8-16); Blood Urea Nitrogen 110 mg/dL (9-20); Calcium 8.6 mg/dL (8.4-10.2); Carbon Dioxide 19 mmol/L (22-30); Chloride 96 mmol/L (98-107); Estimated CRCL calculation 10 ml/min; Estimated Glomerular Filt Rate 8; Glucose 266 mg/dL (65-110); Potassium 6.4 mmol/L (3.4-5.0); Sodium 131 mmol/L (137-145)
[2022-07-11 06:32] LABS: Hematocrit 32.7 % (42.0-52.0); Hemoglobin 10.8 g/dL (14.0-18.0); Mean Corpuscular Hemoglobin 30.5 pg (26-34); Mean Corpuscular Volume 92.4 fl (80-100); Mean Platelet Volume 10.6 fl (7.4-10.4); Platelet Count Result 147 k/mm3 (150-375); Red Blood Count 3.54 M/mm3 (4.6-6.20); Red Cell Distribution Width 14.8 % (11.5-14.5); White Blood Count 7.3 K/mm3 (4.5-10.0)
[2022-07-11] MEDS: LEVOTHYROXINE SODIUM 50 MCG TABLET PO (07:00)
[2022-07-11 07:13] LABS: Anion Gap 18 mmol/L (8-16); Blood Urea Nitrogen 112 mg/dL (9-20); Calcium 8.7 mg/dL (8.4-10.2); Carbon Dioxide 19 mmol/L (22-30); Chloride 95 mmol/L (98-107); Estimated CRCL calculation 10 ml/min; Estimated Glomerular Filt Rate 8; Glucose 136 mg/dL (65-110); Potassium 6.8 mmol/L (3.4-5.0); Sodium 132 mmol/L (137-145); Troponin I 0.027 ng/mL (0.000-0.034)
[2022-07-11 08:18] LABS: Glucose Point of Care 163 mg/dl (65-105)
[2022-07-11] MEDS: CALCIUM GLUC 1,000 MG/NS 100ML 1,000 MG/100 ML BAG 200 MG IVPB (09:01)
[2022-07-11] MEDS: SODIUM ZIRCONIUM CYCLOSILICATE 10 GM POWD.PACK PO (09:05)
[2022-07-11] MEDS: INSULIN GLARGINE (*BKC) 100 UNITS/ML 38 UNITS SUB-Q (09:10)
[2022-07-11] MEDS: ASPIRIN 81 MG CHEWABLE TABLET PO (09:29)
[2022-07-11] MEDS: FUROSEMIDE 80 MG TABLET PO ×2 (09:36→14:05)
[2022-07-11] MEDS: METOPROLOL SUCCINATE EXT REL 25 MG TABCR PO (09:37)
[2022-07-11] MEDS: metOLazone 5 MG TABLET 10 MG PO (09:37)
[2022-07-11] MEDS: TAMSULOSIN HCL 0.4 MG CAPSULE PO (09:38)
[2022-07-11 12:07] LABS: Glucose Point of Care 151 mg/dl (65-105)
[2022-07-11 12:24] LABS: Vancomycin Random < 5.0 ug/mL (10-20)
--- NOTE | 2022-07-11 13:07 | PM.IMPN ---
Progress Note: A&P Assessment and Plan (1) Acute hyperkalemia: Code(s): E87.5 - Hyperkalemia Status: Acute Assessment and Plan: Will get hemodialysis. Monitor electrolytes. (2) ESRD on hemodialysis: Code(s): N18.6 - End stage renal disease; Z99.2 - Dependence on renal dialysis Status: Acute Assessment and Plan: He will need hemodialysis. Nephrology has been consulted. (3) Lung infiltrate: Code(s): R91.8 - Other nonspecific abnormal finding of lung field Status: Acute Assessment and Plan: Questionable pneumonia. Antibiotics will be continued for now. (4) IDDM (insulin dependent diabetes mellitus): Status: Chronic Assessment and Plan: Monitor blood sugars (5) PAD (peripheral artery disease): Code(s): I73.9 - Peripheral vascular disease, unspecified Status: Acute (6) CAD (coronary artery disease): Code(s): I25.10 - Atherosclerotic heart disease of [place] coronary artery without angina pectoris Status: Acute (7) Cardiomyopathy: Code(s): I42.9 - Cardiomyopathy, unspecified Status: Acute Subjective Date/time seen: 07/11/22 13:07 No complaints Exam Narrative: Patient is sitting in a stretcher in in semi upright position chronically ill-looking Const: General: comfortable, no acute distress, well developed, alert, awake and average body habitus Nutritional Appearance: average body habitus Orientation/consciousness: patient oriented x3 HENMT: Head: normal to inspection, normocephalic and atraumatic Ears: hearing grossly normal bilaterally Face/Nose/Sinus: normal facial exam Face and sinus: normal facial exam Eyes: General: appearance normal, both eyes and all related structures Pupils: Equal, round and reactive pupils present EOM: EOMs intact bilaterally Neck: Neck: full ROM, no lymphadenopathy and no JVD Thyroid: thyroid normal Lymphatic: no lymphadenopathy noted Resp: Effort & Inspection: normal respiratory effort and able to speak in complete sentences Auscultation: clear to auscultation bilaterally Cardio: Jugular venous distension: no JVD Rate: regular rate Rhythm: regular rhythm Heart sounds: S1 normal heart sound present and S2 normal heart sound present : General: Yes deferred Skin: Rashes: no rashes Wounds: no wounds Neuro: General: patient oriented x3, CN's II-XI intact bilaterally and Unable to assess gait Cranial nerves: Yes CN's II-XII intact bilaterally and Yes Equal, round and reactive pupils present Cognition (Neuro): normal cognition Speech: normal speech Gait exam (Neuro): Unable to assess gait Motor exam (neuro): 5/5 motor strength present throughout Extrem: General: edema and other (Right toe amputation) Objective Data Vital Signs Vital Signs: Vital Signs - 24 hr 07/10/22 21:48 07/10/22 23:43 07/11/22 00:15 Temperature 94.0 F L 94.5 F L 94.5 F L Pulse Rate 65 60 Respiratory Rate 19 20 Blood Pressure 168/88 H Pulse Oximetry 94 95 Oxygen Delivery Room Air Oxygen Flow Rate 07/11/22 00:25 07/11/22 01:05 07/11/22 00:30 Temperature 97.7 F 96.3 F L Pulse Rate 70 Respiratory Rate 21 H Blood Pressure 161/89 H Pulse Oximetry 93 95 Oxygen Delivery Nasal Cannula Oxygen Flow Rate 1 07/11/22 00:45 07/11/22 01:00 07/11/22 01:15 Temperature 97.3 F L 97.0 F L 97.4 F L Pulse Rate Respiratory Rate Blood Pressure Pulse Oximetry Oxygen Delivery Oxygen Flow Rate 07/11/22 01:45 07/11/22 02:08 07/11/22 00:27 Temperature 97.7 F 97.7 F Pulse Rate 67 Respiratory Rate 15 Blood Pressure Pulse Oximetry 92 Oxygen Delivery Oxygen Flow Rate 07/11/22 00:30 07/11/22 00:41 07/11/22 00:45 Temperature Pulse Rate 68 68 68 Respiratory Rate 22 H 18 17 Blood Pressure 162/104 H Pulse Oximetry 90 94 Oxygen Delivery Oxygen Flow Rate 07/11/22 01:00 07/11/22 01:01 07/11/22 01:15 Temperature Pu
[2022-07-11] MEDS: ONDANSETRON INJ 4 MG/2 ML VIAL IV PUSH (15:33)
[2022-07-11 16:56] LABS: Hepatitis B Surface Antigen Negative (Negative)
[2022-07-11 17:08] LABS: Glucose Point of Care 99 mg/dl (65-105)
[2022-07-11 17:14] LABS: Hepatitis B Surface Anti Res Negative
--- NOTE | 2022-07-11 17:20 | PM.CNNEP ---
Assessment and Plan Assessment and plan (1) ESRD (end stage renal disease): Code(s): N18.6 - End stage renal disease Status: Chronic Assessment and Plan: HD today continue T/T/S schedule while hospitalized follow electrolytes, volume status, and clearance (2) Hyperkalemia: Code(s): E87.5 - Hyperkalemia Status: Chronic Assessment and Plan: chronic issue from review of records felt to be related to dietary indiscretion based on past evaluation along with missed HD treatment s/p medical management in ER and earlier today dialysis treatment today (3) Generalized weakness: Code(s): R53.1 - Weakness Status: Acute Assessment and Plan: likely related to hyperkalema (as this has given him this symptom in the past as well) PT/OT evaluation if persists (4) Hypertension: Code(s): I10 - Essential (primary) hypertension Status: Chronic Assessment and Plan: reasonable control at this time on home medications follow trend of hemodynamics (5) Anemia: Code(s): D64.9 - Anemia, unspecified Status: Chronic Assessment and Plan: due to ESRD Epogen with HD follow trend of H/H (6) IDDM (insulin dependent diabetes mellitus): Status: Chronic Assessment and Plan: follow accuchecks glycemic control per hospitalists I will continue to follow the patient with you while he remains hospitalized and make further recommendations during his hospital course. I would not be opposed to discharge tomorrow if he is otherwise medically stable. Thank you for allowing me to participate in the care of this patient. History of Present Illness Reason for Consult Consult date: 07/11/22 Reason for consult: end stage renal disease Chief Complaint Chief complaint: Hyperkalemia/ESRD History of Present Illness Narrative: The patient is a 56-year-old male with a past medical history as outlined below who presented to [facility] Emergency room with complaints of generalized weakness. The patient reports that he did not go to dialysis on because he was not feeling well. He did not elaborate why he did not feel well but since that time, he reports that his weakness has progressively worsened. He is unable to ambulate or lift his legs in general and the symptoms are somewhat consistent with when he has had significant hyperkalemia in general. Further complicating matters is that he feels more swollen and edematous as well. Given these symptoms, he presented to the ER for further assessment. Workup and evaluation emergency room demonstrated the patient to be hemodynamically stable and routine blood test demonstrated labs consistent with his known history of end-stage renal disease but with evidence of significant hyperkalemia with a potassium level of 7.5. Furthermore, his chest x-ray demonstrated evidence of significant fluid overload with pulmonary edema and bilateral pleural effusions as well. He received medical management for his hyperkalemia although his EKG did not show any elevated/peaked T-waves. Given his critical electrolyte abnormality and along with his weakness amd fluid overload, he was admitted the hospital for dialysis as well as further evaluation and therapy. Renal consultation was requested due to his end-stage renal disease. The patient normally dialyzes on a Wednesday, , Wednesday dialysis schedule under the care of Dr. Han at [facility]. The patient is somewhat familiar to me as I have 8 taking care of him in the past at [facility] for similar issues, specifically, hyperkalemia and fluid overload. As already mentioned above, he missed his dialysis treatment on of this week and given his recurrent issues with hyperkalemia and fluid retention as already noted, these same symptoms are the likely result of his presentation to the emergency room yesterday even
[2022-07-11] MEDS: GLUCOSE ORAL GEL 15 GM OF GLUCSE IN 37.5 GM TUBE PO (17:51)
[2022-07-11 18:18] LABS: Glucose Point of Care 153 mg/dl (65-105)
[2022-07-11] MEDS: EPOETIN ALFA-EPBX 4,000 UNITS/ML VIAL 4000 UNITS IV PUSH (18:53)
[2022-07-11 20:51] LABS: Glucose Point of Care 80 mg/dl (65-105)
--- NOTE | 2022-07-11 21:52 | PCHDNOTE ---
Treatment completed as ordered. Time and UF met. Pt was dialyzed with a 1K/2.5Ca for 1.5 hours then 2K/2.5Ca for the remainder of treatment as ordered. Epogen 4000 units IV administered with dialysis as prescribed. Hemostasis achieved in cannulation sites. Net UF of 4.5 Liters.
[2022-07-11 23:45] LABS: Glucose Point of Care 256 mg/dl (65-105)
[2022-07-12] VITALS (9 sets, daily range): BP systolic 112–172; BP diastolic 65–83; PULSE 80–108; RESP 12–20; TEMP 36.3–36.8; O2SAT 95–99
[2022-07-12 03:55] LABS: Basophils Percent Auto 0.5 % (0.2-1.2); Eosinophils Absolute Auto 0.1 K/mm3 (0-0.3); Eosinophils Percent Auto 0.9 % (0-4.4); Hematocrit 33.8 % (42.0-52.0); Hemoglobin 10.9 g/dL (14.0-18.0); Immature Granulocyte Absolute 0.01 K/mm3 (0.00-0.031); Immature Granulocyte Percent A 0.2 % (0-0.5); Lymphocytes Absolute Auto 0.74 K/mm3 (0.9-3.2); Lymphocytes Percent Auto 13.5 % (18.3-44.2); Mean Corpuscular HGB Conc 32.2 g/dl (32-36); Mean Corpuscular Hemoglobin 29.9 pg (26-34); Mean Corpuscular Volume 92.9 fl (80-100); Mean Platelet Volume 10.7 fl (7.4-10.4); Monocytes Absolute Auto 0.6 K/mm3 (0.1-0.6); Neutrophils Absolute Auto 4.1 K/mm3 (1.3-6.7); Neutrophils Percent Auto 74.9 % (45.5-73.1); Platelet Count Result 144 k/mm3 (150-375); Red Blood Count 3.64 M/mm3 (4.6-6.20); Red Cell Distribution Width 15.1 % (11.5-14.5); White Blood Count 5.5 K/mm3 (4.5-10.0)
[2022-07-12 04:12] LABS: Albumin Level 4.1 g/dL (3.5-5.1); Anion Gap 10 mmol/L (8-16); Anion Gap 9 mmol/L (8-16); Blood Urea Nitrogen 53 mg/dL (9-20); Blood Urea Nitrogen 54 mg/dL (9-20); Calcium 8.3 mg/dL (8.4-10.2); Calcium 8.4 mg/dL (8.4-10.2); Carbon Dioxide 31 mmol/L (22-30); Chloride 94 mmol/L (98-107); Estimated CRCL calculation 17 ml/min; Estimated CRCL calculation 18 ml/min; Estimated Glomerular Filt Rate 15; Glucose 287 mg/dL (65-110); Glucose 288 mg/dL (65-110); Phosphorus 5.1 mg/dL (2.5-4.5); Potassium 4.5 mmol/L (3.4-5.0); Potassium 4.6 mmol/L (3.4-5.0); Sodium 134 mmol/L (137-145); Sodium 135 mmol/L (137-145)
[2022-07-12] MEDS: LEVOTHYROXINE SODIUM 50 MCG TABLET PO (06:42)
[2022-07-12 08:07] LABS: Glucose Point of Care 241 mg/dl (65-105)
[2022-07-12] MEDS: FUROSEMIDE 80 MG TABLET PO ×2 (11:18→14:01)
[2022-07-12] MEDS: TAMSULOSIN HCL 0.4 MG CAPSULE PO (11:18)
[2022-07-12] MEDS: metOLazone 5 MG TABLET 10 MG PO (11:18)
[2022-07-12] MEDS: METOPROLOL SUCCINATE EXT REL 25 MG TABCR PO (11:19)
[2022-07-12] MEDS: ASPIRIN 81 MG CHEWABLE TABLET PO (11:19)
[2022-07-12] MEDS: INSULIN ASPART (*BKC) 100 UNITS/ML SUB-Q ×2 (11:26→14:01)
[2022-07-12] MEDS: INSULIN GLARGINE (*BKC) 100 UNITS/ML 38 UNITS SUB-Q (11:27)
--- NOTE | 2022-07-12 11:45 | PM.PNNEP ---
Progress Note: A&P Assessment and Plan (1) ESRD (end stage renal disease): Code(s): N18.6 - End stage renal disease Status: Chronic Assessment and Plan: HD yesterday continue T/T/S schedule while hospitalized follow electrolytes, volume status, and clearance (2) Hyperkalemia: Code(s): E87.5 - Hyperkalemia Status: Chronic Assessment and Plan: chronic issue from review of records felt to be related to dietary indiscretion based on past evaluation along with missed HD treatment s/p medical management in ER and earlier yesterday s/p dialysis treatment yesterday (3) Generalized weakness: Code(s): R53.1 - Weakness Status: Acute Assessment and Plan: likely related to hyperkalema (as this has given him this symptom in the past as well) clincally better (4) Hypertension: Code(s): I10 - Essential (primary) hypertension Status: Chronic Assessment and Plan: reasonable control at this time on home medications follow trend of hemodynamics (5) Anemia: Code(s): D64.9 - Anemia, unspecified Status: Chronic Assessment and Plan: due to ESRD Epogen with HD follow trend of H/H (6) IDDM (insulin dependent diabetes mellitus): Status: Chronic Assessment and Plan: follow accuchecks glycemic control per hospitalists Will continue to follow -- not opposed to discharge from renal perspective if otherwise medically stable. Subjective Date/time seen: 07/12/22 11:45 Tolerated hemodialysis treatment yesterday afternoon/evening without any issue or problems -- ultrafiltration of 4.5L; repeat labs this AM demonstrate stability in potassium level as well; overall, he feels significantly better; no apparent distress and anxious for discharge today. Exam Narrative: General: WD/WN male in NAD Heart: normal S1 and S2; no rub Lungs: clear anteriorly; decreased at bases Abdomen: soft, nontender, nondistended, positive bowel sounds Extremities: no cyanosis or clubbing; trace edema Skin: warm and dry Objective Data Vital Signs Vital Signs: Vital Signs Temp Pulse Resp BP Pulse Ox O2 Del Method 07/12/22 11:00 98.1 F 84 20 164/83 H 95 07/12/22 10:00 84 07/12/22 08:00 80 07/12/22 08:00 96 Room Air 07/12/22 11:19 81 07/12/22 08:00 98.2 F 81 12 112/78 96 07/12/22 06:00 87 07/12/22 04:00 88 07/12/22 04:00 97.6 F 85 20 170/65 H 99 07/12/22 04:00 Room Air 07/12/22 02:00 87 07/12/22 00:00 Room Air 07/12/22 00:00 86 07/11/22 22:00 82 07/11/22 20:00 79 07/12/22 00:00 97.4 F L 86 20 172/77 H 98 07/11/22 20:28 97.0 F L 79 16 174/87 H 07/11/22 20:18 80 166/70 H 07/11/22 20:00 Room Air 07/11/22 20:00 97.8 F 80 20 164/72 H 96 07/11/22 19:00 79 172/93 H 07/11/22 18:20 72 157/86 H 07/11/22 18:00 76 154/94 H 07/11/22 17:40 76 160/97 H 07/11/22 17:20 74 143/82 H 07/11/22 17:00 75 129/75 07/11/22 18:00 122 H 07/11/22 20:00 79 167/90 H 07/11/22 19:40 78 176/81 H 07/11/22 19:20 78 169/77 H 07/11/22 18:40 77 167/93 H 07/11/22 16:42 70 131/84 07/11/22 16:33 97.7 F 72 20 137/85 07/11/22 16:00 95.2 F L 72 16 140/85 98 07/11/22 16:00 61 07/11/22 16:00 96 Room Air Intake/Output Intake/Output: Intake & Output 07/09/22 07/10/22 07/11/22 07/12/22 23:59 23:59 23:59 23:59 Intake Total 450 980 Output Total 4650 75 Balance -4200 905 Meds/Results Medications: Active Medications Generic Name Dose Route Start Last Admin Trade Name Freq PRN Reason Stop Dose Admin Acetaminophen 1,000 mg 07/11/22 05:08 Acetaminophen 500 Mg Tablet PO DAILY PRN Pain (Scale Score 1-3) Albuterol 2 puff 07/11/22 05:08 Albuterol Sulfate (*Sp) Aer
[2022-07-12 12:42] LABS: Glucose Point of Care 261 mg/dl (65-105)
--- NOTE | 2022-07-12 12:51 | PM.DS ---
DS: Admitting Diagnosis Discharge Date July 12, 2022 Admitting Diagnosis Generalized weakness, end-stage renal disease DS: Discharge Diagnosis Discharge Diagnosis (1) Acute hyperkalemia: Code(s): E87.5 - Hyperkalemia Status: Acute Assessment and Plan: Admit to IMU In preparation for dialysis Continue to medically manage Continue to monitor (2) ESRD on hemodialysis: Code(s): N18.6 - End stage renal disease; Z99.2 - Dependence on renal dialysis Status: Acute Assessment and Plan: Nephrology consult Patient missed dialysis (3) Lung infiltrate: Code(s): R91.8 - Other nonspecific abnormal finding of lung field Status: Acute Assessment and Plan: Started on vanc cefepime and Zithromax Cultures in progress (4) IDDM (insulin dependent diabetes mellitus): Status: Chronic Assessment and Plan: Continue insulin Accu-Cheks AC and HS (5) PAD (peripheral artery disease): Code(s): I73.9 - Peripheral vascular disease, unspecified Status: Acute Assessment and Plan: Unchanged (6) CAD (coronary artery disease): Code(s): I25.10 - Atherosclerotic heart disease of [place] coronary artery without angina pectoris Status: Acute Assessment and Plan: Chest pain free Continue home meds (7) Cardiomyopathy: Code(s): I42.9 - Cardiomyopathy, unspecified Status: Acute Assessment and Plan: Appears asymptomatic Continue to monitor Continue home meds DS: Summary Hospital Course Hospital Course: Patient was admitted for weakness, he had missed some hemodialysis treatments. Patient had volume overload. Questionable infiltrate on chest x-ray was noted on admission. Patient be continued on antibiotics on discharge otherwise he can follow-up with Nephrology for hemodialysis. Time Spent with Patient Time attestation: Total time spent providing and/or coordinating discharge services: Exam Narrative: Patient is sitting in a stretcher in in semi upright position chronically ill-looking Const: General: comfortable, no acute distress, well developed, alert, awake, ill appearing chronically and average body habitus Nutritional Appearance: average body habitus Orientation/consciousness: patient oriented x3 HENMT: Head: normal to inspection, normocephalic and atraumatic Ears: hearing grossly normal bilaterally Face/Nose/Sinus: normal facial exam Face and sinus: normal facial exam Eyes: General: appearance normal, both eyes and all related structures Pupils: Equal, round and reactive pupils present EOM: EOMs intact bilaterally Neck: Neck: full ROM, no lymphadenopathy and no JVD Thyroid: thyroid normal Lymphatic: no lymphadenopathy noted Resp: Effort & Inspection: normal respiratory effort and able to speak in complete sentences Auscultation: clear to auscultation bilaterally Cardio: Jugular venous distension: no JVD Rate: regular rate Rhythm: regular rhythm Heart sounds: S1 normal heart sound present and S2 normal heart sound present : General: Yes deferred Skin: Rashes: no rashes Wounds: no wounds Neuro: General: patient oriented x3, CN's II-XI intact bilaterally and Unable to assess gait Cranial nerves: Yes CN's II-XII intact bilaterally and Yes Equal, round and reactive pupils present Cognition (Neuro): normal cognition Speech: normal speech Gait exam (Neuro): Unable to assess gait Motor exam (neuro): 5/5 motor strength present throughout Sensory Exam: No Sensory deficit (Neuro) Extrem: General: edema and other (Right toe amputation) DS: Data Data Completed and Pending Labs on day of discharge: Labs from last 24 hours 07/12/22 07/12/22 07/12/22 11:53 07:50 03:20 WBC RBC Hgb Hct MCV MCH MCHC RDW Plt Count MPV Immature Gran % (Auto) Neut % (Auto) Lymph % (Auto) [place] % (Auto) Eos % (Auto) Baso % (Auto) Lymph # (Auto) [place] # (Auto)
== END 2022-07-12 14:40 | disposition home or self-care (01) ==
LOC: ANHED 07-11 01:11 → ANHIMU 07-11 06:33
PROVIDERS: Internal Medicine Nephrology; Admitting Provider Internal Medicine; Emergency Provider Emergency Medicine; PCP Internal Medicine; Visit Provider Chiropractor
DX: E87.5 Hyperkalemia (principal); I13.2 Hypertensive heart and chronic kidney disease with heart failure and with stage 5 chronic kidney disease, or end stage renal disease; E11.22 Type 2 diabetes mellitus with diabetic chronic kidney disease; D63.1 Anemia in chronic kidney disease; I50.9 Heart failure, unspecified; N18.6 End stage renal disease; Z99.2 Dependence on renal dialysis; R91.8 Other nonspecific abnormal finding of lung field; I73.9 Peripheral vascular disease, unspecified; I25.10 Atherosclerotic heart disease of native coronary artery without angina pectoris; J45.909 Unspecified asthma, uncomplicated; Z20.822 Contact with and (suspected) exposure to COVID-19; F41.9 Anxiety disorder, unspecified; F32.A Depression, unspecified; I42.9 Cardiomyopathy, unspecified; Z95.5 Presence of coronary angioplasty implant and graft; I25.5 Ischemic cardiomyopathy; R94.31 Abnormal electrocardiogram [ECG] [EKG]; E78.5 Hyperlipidemia, unspecified; F10.20 Alcohol dependence, uncomplicated; F17.210 Nicotine dependence, cigarettes, uncomplicated; Z86.73 Personal history of transient ischemic attack (TIA), and cerebral infarction without residual deficits; Z79.4 Long term (current) use of insulin; Z79.899 Other long term (current) drug therapy
CPT/HCPCS: 36415; 71045; 80048; 80053; 80069; 80202; 82948; 83605; 83690; 83735; 84145; 84484; 85025; 85027; 85610; 85730; 86706; 87040; 87081; 87340; 87636; 93005; 96365; 96366; 96367; 96374; 96375; 96376; 99285; A9270; G0257; G0378; J0456; J0610; J0692; J1815; J2405; J3370; J7030; Q5105